=== PATIENT | female | born 1935 | race Caucasian/White ===

== ENCOUNTER → 2018-10-08 | Outpatient (CLI) | payer MEDICARE ==
--- NOTE | 2018-10-10 21:16 | MR ---
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 Eye pain per patient. TECHNIQUE: Multiplanar, multisequence images of the brain is performed without and with IV contrast, utilizing 7 mL intravenous Gadavist . Orbital protocol. FINDINGS: Right globe is felt within normal limits. Left globe shows abnormal increased T1 signal wit h T-shaped area of low T2 signal likely reflecting prosthesis correlate clinically otherwise other et iologies need to be considered. Rectus muscles are symmetric and felt within normal limits. There is symmetric nonspecific enhancemen t along the optic nerve sheaths which are not suspiciously enlarged. Suprasellar cistern is maintaine d. Optic chiasm is not effaced. Intraconal fat is preserved bilaterally. Zygomatic arches are intact. Visualized paranasal sinuses show mild mucosal thickening anterior ethmoid sinuses bilaterally. Orbi jessica floors and maciel are felt intact. Annual cervical junction appears within normal limits. No gross hydrocephalus. IMPRESSION: Suspect left globe prosthesis or surgical change correlate clinically otherwise fairly un remarkable study.
== END | disposition home or self-care (01) ==
LOC: RADMRIMAIN 11:14
PROVIDERS: ATTEND Ophthalmology
DX: H44.523 Atrophy of globe, bilateral (principal)
CPT/HCPCS: 70543; A9585

== ENCOUNTER 2019-02-27 09:36 | Emergency (ER) | payer MEDICARE ==
[2019-02-27 09:43] VITALS: RESP 16; TEMP 97.7
--- NOTE | 2019-02-27 09:47 | ED ---
Lower Extremity Injury HPI - General Chief Complaint: Extremity Injury, Lower Stated Complaint: hip pain Time Seen by Provider: 02/27/19 09:36 Source: patient, EMS, RN notes reviewed, old records reviewed Mode of arrival: EMS Limitations: physical limitation - History of Present Illness Initial Comments: This 84-year-old female who was here approximately 2 weeks ago after a fall sustaining pain to her left hip but apparently no fractures who presents back today with complaints of severe left-sided hip pain with inability to ambulate with her walker or cane. She does states she had a history of bad lower lumbar fracture about 2 years ago but none in this last incident. She denies any fevers chills nausea vomiting sweats loss of function to her upper or lower extremities is pain with weightbearing. She was brought in by EMS. Pain initially was 8/10 in severity after 50 g of fentanyl is now 4/10. - Related Data Home Medications Medication Instructions Recorded Confirmed Allopurinol [Zyloprim] 200 mg PO DAILY PRN 10/17/13 02/27/19 Hydrochlorothiazide [Hydrodiuril] 25 mg PO DAILY 10/17/13 02/27/19 Lansoprazole 30 mg PO DAILY 10/17/13 02/27/19 NIFEdipine [Adalat cc] 30 mg PO DAILY 10/17/13 02/27/19 Potassium Chloride [Klor-Con 20] 20 meq PO DAILY 02/27/19 02/27/19 glipiZIDE XL [Glucotrol Xl] 10 mg PO DAILY 02/27/19 02/27/19 Previous Rx's Medication Instructions Recorded Ketorolac [Toradol] 10 mg PO Q8HR #20 tab 02/27/19 Allergies Allergy/AdvReac Type Severity Reaction Status Date / Time Penicillins Allergy Rash/Hives Verified 02/27/19 11:05 Sulfa (Sulfonamide Allergy Rash/Hives Verified 02/27/19 11:05 Antibiotics) morphine AdvReac TURNED Verified 02/27/19 11:05 PURPLE/TROUBLE BREATHING Review of Systems ROS Statement: Those systems with pertinent positive or pertinent negative responses have been documented in the HPI. ROS Other: All systems not noted in ROS Statement are negative. 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, BLIND LEFT EYE, GOUT History of Any Multi-Drug Resistant Organisms: None Reported Past Surgical History: Bowel Resection, Cholecystectomy, Hysterectomy, Orthopedic Surgery Additional Past Surgical History / Comment(s): PALMER ROTATOR CUFF, CATARACT SX Past Anesthesia/Blood Transfusion Reactions: No Reported Reaction Past Psychological History: No Psychological Hx Reported Smoking Status: Never smoker Past Alcohol Use History: None Reported Past Drug Use History: None Reported General Exam - General Exam Comments Initial Comments: This is a well-developed well-nourished awake alert oriented 3 female Limitations: physical limitation General appearance: alert, anxious, in distress Head exam: Present: atraumatic, normocephalic, normal inspection Eye exam: Present: normal appearance, PERRL, EOMI. Absent: scleral icterus, con junctival injection, periorbital swelling ENT exam: Present: normal exam, mucous membranes moist Neck exam: Present: normal inspection. Absent: tenderness, meningismus, lymphadenopathy Respiratory exam: Present: normal lung sounds bilaterally. Absent: respiratory distress, wheezes, rales, rhonchi, stridor Cardiovascular Exam: Present: regular rate, normal rhythm, normal heart sounds. Absent: systolic murmur, diastolic murmur, rubs, gallop, clicks GI/Abdominal exam: Present: soft, normal bowel sounds. Absent: distended, tenderness, guarding, rebound, rigid, bruit, pulsatile mass Extremities exam: Present: normal inspection, tenderness (Tenderness over the left hip), normal capillary refill, other (Tennis over the left hip to palpation and over the left paraspinous musculature. This is a frail 5 S1 region. No definite step-off or crepitation no overt shortening or rotation of the left hip.). Absent: full ROM, pedal edema, joint swelling, calf tenderness Back exam: Present: normal inspection Neurological exam: Present: alert, oriented X3, CN II-XII intact Psychiatric exam: Present: normal affect, normal mood Skin exam: Present: warm, dry, intact, normal color. Absent: rash Course Vital Signs 02/27/19 02/27/19 09:38 11:03 Temperature 97.7 F Pulse Rate 62 76 Respiratory 16 16 Rate Blood Pressure 192/88 156/73 O2 Sat by Pulse 97 99 Oximetry Medical Decision Making - Medical Decision Making He was able amulet with her walker after the IV Toradol. She did get some improvement she'll be discharged on a short course of oral Toradol she is follow-up with her doctor return. We did discuss the findings - Radiology Data Radiology results: report reviewed, image reviewed (I did review the imaging and report no acute findings. Some spurring was noted) Disposition Clinical Impression: Hip pain, left, Contusion of left hip Disposition: HOME SELF-CARE Condition: Good Instructions (If sedation given, give patient instructions): Hip Pain (ED) Additional Instructions: Medications sent to your preferred pharmacy Prescriptions: Ketorolac [Toradol] 10 mg PO Q8HR #20 tab Is patient prescribed a controlled substance at d/c from ED?: No Referrals: None,Stated [REFERRING] - 1-2 days
--- NOTE | 2019-02-27 10:55 | XR ---
EXAMINATION TYPE: XR Hip LT and AP Pelvis DATE OF EXAM: 02/27/2019 COMPARISON: NONE HISTORY: Left hip pain status post fall TECHNIQUE: A single AP view of the pelvis is obtained. Two views of the left hip are obtained. FINDINGS: There is no acute fracture/dislocation evident in the pelvis. The hip and sacroiliac join ts appear symmetric and demonstrate mild degenerative change with acetabular roof sclerosis and small marginal osteophytes. The overlying soft tissue appears unremarkable. Two views of left hip show no acute fracture or dislocation. No focal lytic or sclerotic lesion seen in the proximal left femur. The overlying soft tissue is unremarkable. IMPRESSION: There is no acute fracture or dislocation in the pelvis or left hip.
[2019-02-27] MEDS ORDERED: KETOROLAC 30 MG/ML 1 ML VIAL IVP STA (10:56)
[2019-02-27 11:04] VITALS: BP 156/73; PULSE 76
--- NOTE | 2019-02-27 11:22 | CT ---
EXAMINATION TYPE: CT pelvis wo con DATE OF EXAM: 02/27/2019 COMPARISON: Radiograph same date HISTORY: 84-year-old female left hip pain post fall TECHNIQUE: Contiguous axial scanning of the pelvis without IV contrast. Coronal and sagittal reconstr uctions performed. CT DLP: 374.3 mGycm Automated exposure control for dose reduction was used. FINDINGS: Left L5 hemisacralization with the transverse processes articulating with the sacroiliac. Sacrum appe ars intact as do the SI joints. Mild degenerative change of both hips. Osteopenia. Some chronically fragmented spurs at the left grea ter trochanter. Osteopenia. No acute fracture seen. Moderate to advanced degenerative disc disease lo wer lumbar spine and hypertrophic facet arthropathy. IMPRESSION: NO ACUTE FRACTURE IDENTIFIED. IF THE PATIENT IS NONWEIGHTBEARING, FOLLOW-UP SUCH WITH MRI MAY BE I NDICATED.
== END 2019-02-27 12:40 | disposition home or self-care (01) ==
LOC: EC 09:36
DX: S70.02XA Contusion of left hip, initial encounter (principal); E11.9 Type 2 diabetes mellitus without complications; I10 Essential (primary) hypertension; M19.90 Unspecified osteoarthritis, unspecified site; M10.9 Gout, unspecified; H54.7 Unspecified visual loss; Z86.73 Personal history of transient ischemic attack (TIA), and cerebral infarction without residual deficits; Z90.49 Acquired absence of other specified parts of digestive tract; Z90.710 Acquired absence of both cervix and uterus; Z98.890 Other specified postprocedural states; Z79.84 Long term (current) use of oral hypoglycemic drugs; Z79.899 Other long term (current) drug therapy; Z88.0 Allergy status to penicillin; Z88.2 Allergy status to sulfonamides; Z88.5 Allergy status to narcotic agent; Z87.81 Personal history of (healed) traumatic fracture; X58.XXXA Exposure to other specified factors, initial encounter
CPT/HCPCS: 73502; 72192; 99285; 96374; J1885

== ENCOUNTER → 2019-11-22 | Outpatient (CLI) | payer MEDICARE ==
--- NOTE | 2019-11-22 14:43 | XR ---
EXAMINATION TYPE: XR chest 2V DATE OF EXAM: 11/22/2019 COMPARISON: 07/24/2019 HISTORY: Shortness of breath TECHNIQUE: Frontal and lateral views of the chest are obtained. FINDINGS: Scattered senescent parenchymal changes noted. Hyperinflation compatible with COPD. No evidence for infiltrate. No evidence for atelectasis. Heart size is stable. Mediastinal structures are stable and grossly unremarkable. No evidence for hilar prominence. Degenerative changes dorsal spine. IMPRESSION: 1. No evidence for acute pulmonary disease.
== END | disposition home or self-care (01) ==
LOC: RADXRMAIN 13:53
PROVIDERS: ATTEND Family Medicine
DX: R05 Cough (principal)
CPT/HCPCS: 71046

== ENCOUNTER 2020-05-05 13:23 | Inpatient (IN) | payer MEDICARE ==
--- NOTE | 2020-05-05 13:46 | ED ---
General Adult HPI - General Chief complaint: Weakness Stated complaint: Weakness Time Seen by Provider: 05/05/20 13:25 Source: patient, EMS, RN notes reviewed, old records reviewed Mode of arrival: EMS Limitations: no limitations - History of Present Illness Initial comments: This is an 85-year-old female presents emergency department stating that she j diana doesn't feel well. Patient states she felt last week and landed on her butt and her lower back. Patient states that since she's been complaining of lower back pain as well as some right hip pain. Patient states in general she just feels weaker than normal. Patient denies any fever chills or cough per patient denies any chest pain or palpitations. Patient is mildly short of breath. patient denies any headache patient denies numbness weakness. Patient denies abdominal pain patient denies nausea vomiting or diarrhea. - Related Data Home Medications Medication Instructions Recorded Confirmed Lansoprazole 30 mg PO DAILY 10/17/13 02/27/19 NIFEdipine [Adalat cc] 30 mg PO DAILY 10/17/13 02/27/19 allopurinoL [Zyloprim] 200 mg PO DAILY PRN 10/17/13 02/27/19 hydroCHLOROthiazide [Hydrodiuril] 25 mg PO DAILY 10/17/13 02/27/19 Potassium Chloride [Klor-Con 20] 20 meq PO DAILY 02/27/19 02/27/19 glipiZIDE XL [Glucotrol Xl] 10 mg PO DAILY 02/27/19 02/27/19 Previous Rx's Medication Instructions Recorded Ketorolac [Toradol] 10 mg PO Q8HR #20 tab 02/27/19 Allergies Allergy/AdvReac Type Severity Reaction Status Date / Time Penicillins Allergy Rash/Hives Verified 02/27/19 11:05 Sulfa (Sulfonamide Allergy Rash/Hives Verified 02/27/19 11:05 Antibiotics) morphine AdvReac TURNED Verified 02/27/19 11:05 PURPLE/TROUBLE BREATHING Review of Systems ROS Statement: Those systems with pertinent positive or pertinent negative responses have been documented in the HPI. ROS Other: All systems not noted in ROS Statement are negative. 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 Patient is nontoxic and well- hydrated and is in mild distress. ENT: Neck is soft and supple. No significant lymphadenopathy is noted. Oropharynx is clear. Moist mucous membranes. Neck has full range of motion without eliciting any pain. EYES: The sclera were anicteric and conjunctiva were pink and moist. Extraocular movements were intact and pupils were equal round and reactive to light. Eyelids were unremarkable. PULMONARY: Unlabored respirations. Good breath sounds bilaterally. No audible rales rhonchi or wheezing was noted. CARDIOVASCULAR: There is a regular rate and rhythm without any murmurs gallops or rubs. ABDOMEN: Soft and nontender with normal bowel sounds. No palpable organomegaly was noted. There is no palpable pulsatile mass. SKIN: Skin is clear with no lesions or rashes and otherwise unremarkable. NEUROLOGIC: Patient is alert and oriented x3. Cranial nerves II through XII are grossly intact. Motor and sensory are also intact. Normal speech, volume and content. Symmetrical smile. MUSCULOSKELETAL: She has some right lateral hip tenderness on palpation. Patient also has some lumbar spine tenderness LYMPHATICS: No significant lymphadenopathy is noted PSYCHIATRIC: Normal psychiatric evaluation. Limitations: no limitations Course Vital Signs 05/05/20 05/05/20 05/05/20 13:25 13:30 14:29 Temperature 98.5 F Pulse Rate 78 78 Respiratory 18 18 18 Rate Blood Pressure 180/78 147/99 O2 Sat by Pulse 95 96 Oximetry Medical Decision Making - Medical Decision Making EKG shows sinus rhythm at 75 bpm WI interval is 224 QRS is 118 QT interval 414 QTC is 462. EKG shows no ST segment elevation or depression Chest x-ray shows a little bit of infiltrate in the perihilar region. Pelvis x-ray shows no acute abnormality. Lumbar sacral spine shows no acute abnormality. I spoke with some physicians and that he agreed to admit the patient because the positive: The diagnosis and the infiltrate. Patient does states she is slightly short of breath at this point. - Lab Data Result diagrams: 05/05/20 13:53 05/05/20 13:53 Lab Results 05/05/20 05/05/20 05/05/20 Range/Units 13:53 13:53 13:53 WBC 6.2 (3.8-10.6) k/uL RBC 3.94 (3.80-5.40) m/uL Hgb 12.1 (11.4-16.0) gm/dL Hct 34.8 (34.0-46.0) % MCV 88.4 (80.0-100.0) fL MCH 30.8 (25.0-35.0) pg MCHC 34.9 (31.0-37.0) g/dL RDW 13.5 (11.5-15.5) % Plt Count 270 (150-450) k/uL MPV 7.0 Neutrophils % 76 % Lymphocytes % 14 % Monocytes % 6 % Eosinophils % 1 % Basophils % 2 % Neutrophils # 4.7 (1.3-7.7) k/uL Lymphocytes # 0.9 L (1.0-4.8) k/uL Monocytes # 0.4 (0-1.0) k/uL Eosinophils # 0.1 (0-0.7) k/uL Basophils # 0.1 (0-0.2) k/uL PT 9.9 (9.0-12.0) sec INR 0.9 (<1.2) APTT 25.6 (22.0-30.0) sec Sodium 135 L (137-145) mmol/L Potassium 3.8 (3.5-5.1) mmol/L Chloride 102 (98-107) mmol/L Carbon Dioxide 27 (22-30) mmol/L Anion Gap 6 mmol/L BUN 12 (7-17) mg/dL Creatinine 0.87 (0.52-1.04) mg/dL Est GFR (CKD-EPI)AfAm 69 (>60 ml/min/1.73 sqM) Est GFR (CKD-EPI)NonAf 60 (>60 ml/min/1.73 sqM) Glucose 86 (74-99) mg/dL Plasma Lactic Acid Loco (0.7-2.0) mmol/L Calcium 8.2 L (8.4-10.2) mg/dL Total Bilirubin 0.9 (0.2-1.3) mg/dL AST 39 H (14-36) U/L ALT 9 (4-34) U/L Alkaline Phosphatase 79 (38-126) U/L Troponin I (0.000-0.034) ng/mL Total Protein 6.0 L (6.3-8.2) g/dL Albumin 3.6 (3.5-5.0) g/dL Urine Color Urine Appearance (Clear) Urine pH (5.0-8.0) Ur Specific [place] (1.001-1.035) Urine Protein (Negative) Urine Glucose (UA) (Negative) Urine Ketones (Negative) Urine Blood (Negative) Urine Nitrite (Negative) Urine Bilirubin (Negative) Urine Urobilinogen (<2.0) mg/dL Ur Leukocyte Esterase (Negative) Urine RBC (0-5) /hpf Urine WBC (0-5) /hpf Ur Squamous Epith Cells (0-4) /hpf Urine Bacteria (None) /hpf Hyaline Casts (0-2) /lpf Urine Mucus (None) /hpf Coronavirus (PCR) (Not Detectd) 05/05/20 05/05/20 05/05/20 Range/Units 13:53 13:53 14:32 WBC (3.8-10.6) k/uL RBC (3.80-5.40) m/uL Hgb (11.4-16.0) gm/dL Hct (34.0-46.0) % MCV (80.0-100.0) fL MCH (25.0-35.0) pg MCHC (31.0-37.0) g/dL RDW (11.5-15.5) % Plt Count (150-450) k/uL MPV Neutrophils % % Lymphocytes % % Monocytes % % Eosinophils % % Basophils % % Neutrophils # (1.3-7.7) k/uL Lymphocytes # (1.0-4.8) k/uL Monocytes # (0-1.0) k/uL Eosinophils # (0-0.7) k/uL Basophils # (0-0.2) k/uL PT (9.0-12.0) sec INR (<1.2) APTT (22.0-30.0) sec Sodium (137-145) mmol/L Potassium (3.5-5.1) mmol/L Chloride (98-107) mmol/L Carbon Dioxide (22-30) mmol/L Anion Gap mmol/L BUN (7-17) mg/dL Creatinine (0.52-1.04) mg/dL Est GFR (CKD-EPI)AfAm (>60 ml/min/1.73 sqM) Est GFR (CKD-EPI)NonAf (>60 ml/min/1.73 sqM) Glucose (74-99) mg/dL Plasma Lactic Acid Loco 1.0 (0.7-2.0) mmol/L Calcium (8.4-10.2) mg/dL Total Bilirubin (0.2-1.3) mg/dL AST (14-36) U/L ALT (4-34) U/L Alkaline Phosphatase (38-126) U/L Troponin I 0.015 (0.000-0.034) ng/mL Total Protein (6.3-8.2) g/dL Albumin (3.5-5.0) g/dL Urine Color Urine Appearance (Clear) Urine pH (5.0-8.0) Ur Specific [place] (1.001-1.035) Urine Protein (Negative) Urine Glucose (UA) (Negative) Urine Ketones (Negative) Urine Blood (Negative) Urine Nitrite (Negative) Urine Bilirubin (Negative) Urine Urobilinogen (<2.0) mg/dL Ur Leukocyte Esterase (Negative) Urine RBC (0-5) /hpf Urine WBC (0-5) /hpf Ur Squamous Epith Cells (0-4) /hpf Urine Bacteria (None) /hpf Hyaline Casts (0-2) /lpf Urine Mucus (None) /hpf Coronavirus (PCR) Detected A (Not Detectd) 05/05/20 Range/Units 14:40 WBC (3.8-10.6) k/uL RBC (3.80-5.40) m/uL Hgb (11.4-16.0) gm/dL Hct (34.0-46.0) % MCV (80.0-100.0) fL MCH (25.0-35.0) pg MCHC (31.0-37.0) g/dL RDW (11.5-15.5) % Plt Count (150-450) k/uL MPV Neutrophils % % Lymphocytes % % Monocytes % % Eosinophils % % Basophils % % Neutrophils # (1.3-7.7) k/uL Lymphocytes # (1.0-4.8) k/uL Monocytes # (0-1.0) k/uL Eosinophils # (0-0.7) k/uL Basophils # (0-0.2) k/uL PT (9.0-12.0) sec INR (<1.2) APTT (22.0-30.0) sec Sodium (137-145) mmol/L Potassium (3.5-5.1) mmol/L Chloride (98-107) mmol/L Carbon Dioxide (22-30) mmol/L Anion Gap mmol/L BUN (7-17) mg/dL Creatinine (0.52-1.04) mg/dL Est GFR (CKD-EPI)AfAm (>60 ml/min/1.73 sqM) Est GFR (CKD-EPI)NonAf (>60 ml/min/1.73 sqM) Glucose (74-99) mg/dL Plasma Lactic Acid Loco (0.7-2.0) mmol/L Calcium (8.4-10.2) mg/dL Total Bilirubin (0.2-1.3) mg/dL AST (14-36) U/L ALT (4-34) U/L Alkaline Phosphatase (38-126) U/L Troponin I (0.000-0.034) ng/mL Total Protein (6.3-8.2) g/dL Albumin (3.5-5.0) g/dL Urine Color Yellow Urine Appearance Cloudy H (Clear) Urine pH 5.5 (5.0-8.0) Ur Specific [place] 1.018 (1.001-1.035) Urine Protein Trace H (Negative) Urine Glucose (UA) Negative (Negative) Urine Ketones 1+ H (Negative) Urine Blood Negative (Negative) Urine Nitrite Negative (Negative) Urine Bilirubin Negative (Negative) Urine Urobilinogen <2.0 (<2.0) mg/dL Ur Leukocyte Esterase Small H (Negative) Urine RBC 1 (0-5) /hpf Urine WBC 10 H (0-5) /hpf Ur Squamous Epith Cells 8 H (0-4) /hpf Urine Bacteria Rare H (None) /hpf Hyaline Casts 3 H (0-2) /lpf Urine Mucus Few H (None) /hpf Coronavirus (PCR) (Not Detectd) Critical Care Time Critical Care Time: Yes Total Critical Care Time: 35 Disposition Clinical Impression: Pneumonia due to COVID-19 virus Disposition: ADMITTED IP TO THIS HOSP Referrals: Imra Anna MD [Primary Care Provider] - 1-2 days Time of Disposition: 14:56
[2020-05-05] MEDS ORDERED: KETOROLAC 15 MG/ML 1 ML VIAL IVP STA (13:49)
[2020-05-05 14:01] LABS: Basophils # (A) 0.1 k/uL (0-0.2); Basophils % (A) 2 %; Eosinophils # (A) 0.1 k/uL (0-0.7); Eosinophils % (A) 1 %; HCT 34.8 % (34.0-46.0); HGB 12.1 gm/dL (11.4-16.0); Lymphocytes # (A) 0.9 k/uL (1.0-4.8); Lymphocytes % (A) 14 %; MCH 30.8 pg (25.0-35.0); MCHC 34.9 g/dL (31.0-37.0); MCV 88.4 fL (80.0-100.0); Monocytes # (A) 0.4 k/uL (0-1.0); Monocytes % (A) 6 %; Neutrophils # (A) 4.7 k/uL (1.3-7.7); Neutrophils % (A) 76 %; Platelet Count 270 k/uL (150-450); RBC 3.94 m/uL (3.80-5.40); RDW 13.5 % (11.5-15.5); WBC 6.2 k/uL (3.8-10.6)
[2020-05-05 14:09] LABS: INR 0.9 (<1.2); Partial Thromboplastin Time 25.6 sec (22.0-30.0); Prothrombin Time 9.9 sec (9.0-12.0)
[2020-05-05 14:10] LABS: Albumin 3.6 g/dL (3.5-5.0); Calcium 8.2 mg/dL (8.4-10.2); Potassium 3.8 mmol/L (3.5-5.1); Total Bilirubin 0.9 mg/dL (0.2-1.3)
--- NOTE | 2020-05-05 14:33 | XR ---
EXAMINATION TYPE: XR pelvis AP view DATE OF EXAM: 05/05/2020 COMPARISON: NONE HISTORY: Weakness. Fall. Pain. TECHNIQUE: Single view FINDINGS: The pelvic ring appears intact. The proximal femurs and hip joints are intact. Sacroiliac j oints are intact. There is acetabular spurring. IMPRESSION: No fracture seen.
--- NOTE | 2020-05-05 14:34 | XR ---
EXAMINATION TYPE: XR lumbosacral spine min 4V DATE OF EXAM: 05/05/2020 COMPARISON: NONE HISTORY: Weakness TECHNIQUE: 5 views FINDINGS: There is mild lumbar dextroscoliosis. There is degenerative disc space narrowing in the lum bar spine with vacuum disc and spur formation. There is old 15% wedging of L1 vertebral body. Abdomin al aorta is atheromatous. Posterior elements are intact. Sacroiliac joints are intact. IMPRESSION: Spondylotic changes. Old mild L1 compression fracture. No acute bony abnormality.
--- NOTE | 2020-05-05 14:37 | XR ---
EXAMINATION TYPE: XR chest 2V DATE OF EXAM: 05/05/2020 COMPARISON: 11/22/2019 HISTORY: Weakness TECHNIQUE: 2 views FINDINGS: There is some coarsening of interstitial pulmonary markings. There is no pleural effusion. There are no hilar masses. Heart size is fairly normal. IMPRESSION: Slight increased lung markings consistent with mild pulmonary fibrosis. No obvious heart failure. Lung markings increased compared to old exam.
[2020-05-05 14:48] LABS: Appearance,Urine Cloudy (Clear); Bacteria,Urine Rare /hpf; Bilirubin,Urine Negative (Negative); Blood,Urine Negative (Negative); Color,Urine Yellow; Glucose,Urine (UA) Negative (Negative); Hyaline Casts,Urine 3 /lpf (0-2); Ketones,Urine 1+ (Negative); Leukocyte Esterase,Urine Small (Negative); Mucus,Urine Few /hpf; Nitrite,Urine Negative (Negative); PH, Urine 5.5 (5.0-8.0); Protein,Urine Trace (Negative); RBC,Urine 1 /hpf (0-5); Specific Gravity,Urine 1.018 (1.001-1.035); Squamous Epithelial Cell,Urine 8 /hpf (0-4); Urobilinogen,Urine <2.0 mg/dL (<2.0); WBC,Urine 10 /hpf (0-5)
[2020-05-05] MEDS ORDERED: SODIUM CHLORIDE 0.9% 1,000 ML IV ONE (14:56)
[2020-05-05] MEDS ORDERED: ACETAMINOPHEN TAB 500 MG TAB PO STA (14:57)
[2020-05-05] MEDS ORDERED: dexAMETHasone 2 MG TAB PO STA (14:58)
--- NOTE | 2020-05-05 16:52 | P.HPIM ---
History of Present Illness H&P Date: 05/05/20 Chief Complaint: weakness 85-year-old female presents emergency department due to profound weakness and not feeling well. Currently has no energy. Patient states she passed out, lost consciousness and fell last week and landed on her butt and her lower back. Patient states that since then she's been having lower back pain as well as some right hip pain. She has been having chills but no fevers. No chest pain, shortness of breath or palpitations. Patient denies any headache, visual changes, slurred speech, focal numbness weakness. Patient denies urinary s ymptoms, abdominal pain, nausea vomiting or diarrhea. She does not recall any sick contacts. Patient denied having any lung problems in the past but has ''irregular heartbeat'' and she follows with Dr. Ramirez in the office. She does not know what type of irregular heartbeat she has. Evaluation in the emergency department revealed normal vital signs, no hypoxia or fevers. Blood pressure and heart rate okay. EKG showed normal sinus rhythm without acute changes. Labs were all okay except for mild lymphopenia and slight hyponatremia at 135, AST 35, urinalysis showed slight pyuria. COVID 19 tested positive. Review of Systems Complete review of system performed, pertinent positives per HPI, otherwise negative 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, BLIND LEFT EYE, G OUT History of Any Multi-Drug Resistant Organisms: None Reported Past Surgical History: Bowel Resection, Cholecystectomy, Hysterectomy, Orthopedic Surgery Additional Past Surgical History / Comment(s): PALMER ROTATOR CUFF, CATARACT SX Past Anesthesia/Blood Transfusion Reactions: No Reported Reaction Past Psychological History: No Psychological Hx Reported Smoking Status: Former smoker Past Alcohol Use History: None Reported Past Drug Use History: None Reported Medications and Allergies Home Medications Medication Instructions Recorded Confirmed Type NIFEdipine [Adalat cc] 30 mg PO DAILY 10/17/13 05/05/20 History allopurinoL [Zyloprim] 100 mg PO HS 10/17/13 05/05/20 History glipiZIDE XL [Glucotrol Xl] 10 mg PO DAILY 02/27/19 05/05/20 History Losartan [Cozaar] 50 mg PO DAILY 05/05/20 05/05/20 History Omeprazole 20 mg PO DAILY 05/05/20 05/05/20 History Allergies Allergy/AdvReac Type Severity Reaction Status Date / Time Penicillins Allergy Rash/Hives Verified 02/27/19 11:05 Sulfa (Sulfonamide Allergy Rash/Hives Verified 02/27/19 11:05 Antibiotics) morphine AdvReac TURNED Verified 02/27/19 11:05 PURPLE/TROUBLE BREATHING Physical Exam Vitals: Vital Signs Temp Pulse Resp BP Pulse Ox 05/05/20 15:00 72 18 146/72 96 05/05/20 14:29 78 18 147/99 96 05/05/20 13:30 18 05/05/20 13:25 98.5 F 78 18 180/78 95 Intake and Output 05/05/20 05/05/20 05/05/20 06:59 14:59 22:59 Other: Weight 120.202 kg Constitutional: No acute distress, conversant, pleasant Eyes:Anicteric sclerae, moist conjunctiva, no lid-lag, PERRLA, ENMT: Oropharynx clear, no erythema, exudates Neck: Supple, FROM, no masses, or JVD, No carotid bruits, No thyromegaly Lungs: Clear to auscultation, Clear to percussion, Normal respiratory effort, no accessory muscle use Cardiovascular: Heart regular in rate and rhythm, No murmurs, gallops, or rubs, No peripheral edema Abdominal: Soft, Nontender, no guarding, rebound or rigidity, Normoactive bowel sounds, No hepatomegaly, No splenomegaly, No palpable mass Skin: Normal temperature, tone, texture, turgor, no induration, No subcutaneous nodules, No rash, lesions, No ulcers Extremities: No digital cyanosis, No clubbing, Pedal pulses intact and symmetrical, Radial pulses intact and symmetrical, No calf tenderness Psychiatric: Alert and oriented to person, place and time, appropriate affect, intact judgement Neuro: Muscles Strength 5/5 in all 4 extremities, Sensation to light touch grossly present throughout, Cranial nerves II-XII grossly intact, no focal sensory deficits Results CBC & Chem 7: 05/05/20 13:53 05/05/20 13:53 Labs: Abnormal Lab Results - Last 24 Hours (Table) 05/05/20 05/05/20 05/05/20 Range/Units 13:53 13:53 14:32 Lymphocytes # 0.9 L (1.0-4.8) k/uL Sodium 135 L (137-145) mmol/L Calcium 8.2 L (8.4-10.2) mg/dL AST 39 H (14-36) U/L Total Protein 6.0 L (6.3-8.2) g/dL Urine Appearance (Clear) Urine Protein (Negative) Urine Ketones (Negative) Ur Leukocyte Esterase (Negative) Urine WBC (0-5) /hpf Ur Squamous Epith Cells (0-4) /hpf Urine Bacteria (None) /hpf Hyaline Casts (0-2) /lpf Urine Mucus (None) /hpf Coronavirus (PCR) Detected A (Not Detectd) 05/05/20 Range/Units 14:40 Lymphocytes # (1.0-4.8) k/uL Sodium (137-145) mmol/L Calcium (8.4-10.2) mg/dL AST (14-36) U/L Total Protein (6.3-8.2) g/dL Urine Appearance Cloudy H (Clear) Urine Protein Trace H (Negative) Urine Ketones 1+ H (Negative) Ur Leukocyte Esterase Small H (Negative) Urine WBC 10 H (0-5) /hpf Ur Squamous Epith Cells 8 H (0-4) /hpf Urine Bacteria Rare H (None) /hpf Hyaline Casts 3 H (0-2) /lpf Urine Mucus Few H (None) /hpf Coronavirus (PCR) (Not Detectd) Assessment and Plan Plan: Syncope Monitor on telemetry Check troponin Echo Lower back pain and right hip pain Lumbar spine x-ray checked in the emergency department, negative Check right hip x-ray Tylenol when necessary for pain Covid 19 IV fluids No indication for treatment with remdisivir or Decadron as patient does not have pneumonia or hypoxia. History of diabetes type 2 Hold oral hypoglycemics Sliding scale insulin with blood sugar checks every before meals and at bedtime GERD Hypertension, essential Gout All stable Resume meds Patient will be admitted to observation, expected length of stay less than two midnights.
[2020-05-05] MEDS ORDERED: NALOXONE 0.4 MG/ML 1 ML VIAL IV PRN (16:53)
[2020-05-05] MEDS: INSULIN ASPART (NovoLOG) 100 UNIT/ML VIAL SQ SCH ×2 (21:18→21:33)
[2020-05-05 21:31] LABS: Glucose,Whole Blood 293 mg/dL (75-99)
[2020-05-05] MEDS: ENOXAPARIN 40 MG/0.4 ML SYRINGE SQ SCH (21:33)
[2020-05-05] MEDS: ACETAMINOPHEN TAB 325 MG TAB PO PRN (21:33)
[2020-05-05] MEDS: allopurinoL 100 MG TAB PO SCH (21:33)
[2020-05-05] MEDS ORDERED: KETOROLAC 15 MG/ML 1 ML VIAL IM STA (21:40)
[2020-05-06 07:58] LABS: Basophils % (A) 0 %; Eosinophils % (A) 0 %; HGB 11.4 gm/dL (11.4-16.0); Lymphocytes # (A) 1.2 k/uL (1.0-4.8); Lymphocytes % (A) 29 %; MCH 29.2 pg (25.0-35.0); MCHC 32.6 g/dL (31.0-37.0); MCV 89.5 fL (80.0-100.0); Monocytes # (A) 0.4 k/uL (0-1.0); Monocytes % (A) 9 %; Neutrophils # (A) 2.4 k/uL (1.3-7.7); Neutrophils % (A) 60 %; Platelet Count 274 k/uL (150-450); RBC 3.91 m/uL (3.80-5.40); RDW 13.6 % (11.5-15.5)
[2020-05-06 08:27] LABS: Glucose,Whole Blood 200 mg/dL (75-99)
[2020-05-06] MEDS ORDERED: dexAMETHasone 2 MG TAB PO SCH (09:00)
[2020-05-06] MEDS: ENOXAPARIN 40 MG/0.4 ML SYRINGE SQ SCH (09:04)
[2020-05-06] MEDS: INSULIN ASPART (NovoLOG) 100 UNIT/ML VIAL SQ SCH ×4 (09:05→22:10)
[2020-05-06] MEDS: NIFEdipine XL 30 MG TAB.ER.24 PO SCH (09:06)
[2020-05-06] MEDS: PANTOPRAZOLE 40 MG TABLET PO SCH (09:06)
[2020-05-06] MEDS: LOSARTAN 50 MG TAB PO SCH (09:06)
--- NOTE | 2020-05-06 11:14 | P.PN ---
Subjective Progress Note Date: 05/06/20 No new complaints today, ongoing weakness, lethargy. Does report dyspnea, but not hypoxic. Objective - Vital Signs Vital signs: Vital Signs Temp 98.5 F 05/05/20 13:25 Pulse 64 05/06/20 06:15 Resp 19 05/06/20 06:15 BP 156/61 05/06/20 06:15 Pulse Ox 93 L 05/06/20 06:15 Intake & Output 05/05/20 05/06/20 05/06/20 18:59 06:59 18:59 Weight 120.202 kg - Exam Gen: awake, alert HEENT: normocephalic, atraumatic, good hearing acuity, moist mucous membranes Resp:good air exchange, no accessory muscle use CVS: good distal perfusion x 4, RRR, no murmurs, clicks, gallops GI: soft, NTTP, ND : no SPT, no CVAT, fry catheter not present MSK: no pitting edema, no clubbing Neuro: non-focal, no sensory deficits, appropriate tone Psych: cooperative, euthymic mood - Labs CBC & Chem 7: 05/06/20 07:30 05/05/20 13:53 Labs: Abnormal Lab Results - Last 24 Hours (Table) 05/05/20 05/05/20 05/05/20 Range/Units 13:53 13:53 14:32 Lymphocytes # 0.9 L (1.0-4.8) k/uL Sodium 135 L (137-145) mmol/L POC Glucose (mg/dL) (75-99) mg/dL Calcium 8.2 L (8.4-10.2) mg/dL AST 39 H (14-36) U/L Total Protein 6.0 L (6.3-8.2) g/dL Urine Appearance (Clear) Urine Protein (Negative) Urine Ketones (Negative) Ur Leukocyte Esterase (Negative) Urine WBC (0-5) /hpf Ur Squamous Epith Cells (0-4) /hpf Urine Bacteria (None) /hpf Hyaline Casts (0-2) /lpf Urine Mucus (None) /hpf Coronavirus (PCR) Detected A (Not Detectd) 05/05/20 05/05/20 05/06/20 Range/Units 14:40 21:30 08:25 Lymphocytes # (1.0-4.8) k/uL Sodium (137-145) mmol/L POC Glucose (mg/dL) 293 H 200 H (75-99) mg/dL Calcium (8.4-10.2) mg/dL AST (14-36) U/L Total Protein (6.3-8.2) g/dL Urine Appearance Cloudy H (Clear) Urine Protein Trace H (Negative) Urine Ketones 1+ H (Negative) Ur Leukocyte Esterase Small H (Negative) Urine WBC 10 H (0-5) /hpf Ur Squamous Epith Cells 8 H (0-4) /hpf Urine Bacteria Rare H (None) /hpf Hyaline Casts 3 H (0-2) /lpf Urine Mucus Few H (None) /hpf Coronavirus (PCR) (Not Detectd) Assessment and Plan Assessment: 1. Syncope 2. Lower Back pain 3. COVID-19 4. DM, type II 5. GERD 6. HTN 7. Gout 85 year old woman with history of DM/HTN, GERD, Gout presented after syncopal episode with lower back pain and was found to have COVID-19 without hypoxia. Patient expresses feeling very weak since her symptoms began on 05/02, and feels she cannot care for herself at home. PT/OT evaluation pending Syncope Monitor on telemetry Check troponin Echo PT/OT Lower back pain and right hip pain Lumbar spine x-ray checked in the emergency department, negative Check right hip x-ray Tylenol when necessary for pain Covid 19 IV fluids No indication for treatment with remdisivir or Decadron as patient does not have pneumonia or hypoxia. History of diabetes type 2 Hold oral hypoglycemics Sliding scale insulin with blood sugar checks every before meals and at bedtime GERD Hypertension, essential Gout All stable Resume meds Patient will be admitted to observation, expected length of stay less than two midnights.
[2020-05-06 11:30] LABS: African American GFR (CKD) 58.7 (60.0-200.0); Albumin 3.7 g/dL (3.80-4.90); Albumin/Globulin Ratio 2.31 (1.60-3.17); Anion Gap 7.8 mmol/L (4.00-12.00); Calcium 8.6 mg/dL (8.7-10.3); Carbon Dioxide 27.2 mmol/L (21.6-31.8); Globulin 1.6 g/dL (1.6-3.3); Magnesium 2.2 mg/dL (1.5-2.4); Non-African American GFR(CKD) 50.6 (60.0-200.0); Phosphorus 3.3 mg/dL (2.4-5.1); Potassium 4.3 mmol/L (3.5-5.5); Total Bilirubin 0.5 mg/dL (0.2-1.2); Total Protein 5.3 g/dL (6.2-8.2)
[2020-05-06 12:04] LABS: Glucose,Whole Blood 136 mg/dL (75-99)
[2020-05-06] MEDS: ACETAMINOPHEN TAB 325 MG TAB PO PRN ×2 (12:46→22:10)
--- NOTE | 2020-05-06 12:57 | ECHOF ---
Referral Reason:syncope MEASUREMENTS -------- HEIGHT: 160.0 cm WEIGHT: 74.8 kg BP: 156/61 RVIDd: 3.1 cm (< 3.3) IVSd: 1.1 cm (0.6 - 1.1) LVIDd: 4.1 cm (3.9 - 5.3) LVPWd: 1.1 cm (0.6 - 1.1) IVSs: 1.8 cm LVIDs: 2.4 cm LVPWs: 1.8 cm LA Diam: 3.6 cm (2.7 - 3.8) LAESV Index (A-L): 27.69 ml/m Ao Diam: 3.6 cm (2.0 - 3.7) MV EXCURSION: 15.857 mm (> 18.000) MV EF SLOPE: 22 mm/s (70 - 150) EPSS: 0.5 cm MV E Adrián: 1.03 m/s MV DecT: 271 ms MV A Adrián: 1.37 m/s MV E/A Ratio: 0.75 AV maxP.22 mmHg AV meanP.55 mmHg AR PHT: 625 ms RAP: 5.00 mmHg RVSP: 22.79 mmHg FINDINGS -------- Resting bradycardia (HR<60bpm). This was a technically good study. The left ventricular size is normal. There is borderline concentric left ventricular hypertrophy. Overall left ventricular systolic function is normal with, an EF between 60 - 65 %. The right ventricle is normal in size. Normal LA size by volume 22+/-6 ml/m2. The right atrium is normal in size. Interatrial and interventricular septum intact. There is mild aortic valve sclerosis. There is severe aortic regurgitation. There is mild aortic stenosis present. Peak/mean gradient across the Aortic Valve is 20.22mmHg / 10.55mmHg. The mitral valve leaflets are mildly thickened. Moderate mitral regurgitation is present. Mild tricuspid regurgitation present. Right ventricular systolic pressure is normal at < 35 mmHg. Trace/mild (physiologic) pulmonic regurgitation. The aortic root size is normal. Normal inferior vena cava with normal inspiratory collapse consistent with estimated right atrial pre ssure of 5 mmHg. There is no pericardial effusion. CONCLUSIONS -------- 1. The left ventricular size is normal. 2. There is borderline concentric left ventricular hypertrophy. 3. Overall left ventricular systolic function is normal with, an EF between 60 - 65 %. 4. There is mild aortic valve sclerosis. 5. There is severe aortic regurgitation. 6. There is mild aortic stenosis present. 7. Peak/mean gradient across the Aortic Valve is 20.22mmHg / 10.55mmHg. 8. The mitral valve leaflets are mildly thickened. 9. Moderate mitral regurgitation is present. 10. Mild tricuspid regurgitation present. 11. Trace/mild (physiologic) pulmonic regurgitation. 12. There is no pericardial effusion. BLENDING TANK HELPER: Mily Titus RDCS
[2020-05-06 21:20] LABS: Glucose,Whole Blood 264 mg/dL (75-99)
[2020-05-06] MEDS: allopurinoL 100 MG TAB PO SCH (22:10)
[2020-05-07] MEDS: ACETAMINOPHEN TAB 325 MG TAB PO PRN (04:18)
[2020-05-07 07:08] LABS: Glucose,Whole Blood 99 mg/dL (75-99)
[2020-05-07] MEDS: LOSARTAN 50 MG TAB PO SCH (09:13)
[2020-05-07] MEDS: PANTOPRAZOLE 40 MG TABLET PO SCH (09:13)
[2020-05-07] MEDS: NIFEdipine XL 30 MG TAB.ER.24 PO SCH (09:13)
[2020-05-07] MEDS: INSULIN ASPART (NovoLOG) 100 UNIT/ML VIAL SQ SCH ×4 (09:14→21:27)
[2020-05-07] MEDS: ENOXAPARIN 40 MG/0.4 ML SYRINGE SQ SCH (09:14)
--- NOTE | 2020-05-07 10:10 | P.PN ---
Subjective Progress Note Date: 05/07/20 Pt still appears weak, tired, new oxygen requirement today, ID consult pending. Echo done yesterday demonstrated severe AR, cardiology consult pending. Objective - Vital Signs Vital signs: Vital Signs Temp 99.2 F 05/07/20 05:00 Pulse 66 05/07/20 05:00 Resp 20 05/07/20 05:00 BP 161/81 05/07/20 05:00 Pulse Ox 92 L 05/07/20 05:00 Intake & Output 05/06/20 05/07/20 05/07/20 18:59 06:59 18:59 Intake Total 500 Balance 500 Weight 120.202 kg Intake: Oral 500 Other: Voiding Method Bedside Commode # Voids 3 # Bowel Movements 0 - Exam Gen: awake, alert HEENT: normocephalic, atraumatic, good hearing acuity, moist mucous membranes Resp:good air exchange, no accessory muscle use CVS: good distal perfusion x 4 GI: soft, NTTP, ND : no SPT, no CVAT, fry catheter not present MSK: no pitting edema, no clubbing Neuro: non-focal, no sensory deficits, appropriate tone Psych: cooperative, euthymic mood - Labs CBC & Chem 7: 05/06/20 07:30 05/06/20 07:30 Labs: Abnormal Lab Results - Last 24 Hours (Table) 05/06/20 05/06/20 05/06/20 Range/Units 07:30 12:02 21:09 Est GFR (CKD-EPI)AfAm 58.7 L (60.0-200.0) Est GFR (CKD-EPI)NonAf 50.6 L (60.0-200.0) Glucose 225 H (70-110) mg/dL POC Glucose (mg/dL) 136 H 264 H (75-99) mg/dL Calcium 8.6 L (8.7-10.3) mg/dL Total Protein 5.3 L (6.2-8.2) g/dL Albumin 3.70 L (3.80-4.90) g/dL Assessment and Plan Assessment: 1. Syncope 2. Lower Back pain 3. Severe Aortic Regurgitation 3. COVID-19 with Acute Hypoxemic Respiratory Failure 4. DM, type II 5. GERD 6. HTN 7. Gout 85 year old woman with history of DM/HTN, GERD, Gout presented after syncopal episode with lower back pain and was found to have COVID-19 without hypoxia. Patient expresses feeling very weak since her symptoms began on 05/02, and feels she cannot care for herself at home. PT/OT evaluation pending Syncope Monitor on telemetry Check troponin Echo = severe AR, EF 60-65%, no WMA PT/OT Severe AR avoid beta-blockers cardiology consult I/Os, daily weights Lower back pain and right hip pain Lumbar spine x-ray checked in the emergency department, negative Check right hip x-ray Tylenol when necessary for pain Covid 19 with Acute Hypoxemic Respiratory Failure IV fluids ID consult for remdesivir/plasma in light of respiratory failure History of diabetes type 2 Hold oral hypoglycemics Sliding scale insulin with blood sugar checks every before meals and at bedtime GERD Hypertension, essential Gout All stable Resume meds Patient will be admitted to inpatient, expected length of stay > two midnights.
[2020-05-07 11:21] LABS: Glucose,Whole Blood 129 mg/dL (75-99)
[2020-05-07 13:22] LABS: Basophils % (A) 0 %; Eosinophils % (A) 0 %; HCT 32.2 % (34.0-46.0); HGB 10.8 gm/dL (11.4-16.0); Lymphocytes # (A) 1.3 k/uL (1.0-4.8); Lymphocytes % (A) 23 %; MCHC 33.4 g/dL (31.0-37.0); Mean Platelet Volume 7.2; Monocytes # (A) 0.2 k/uL (0-1.0); Monocytes % (A) 4 %; Neutrophils # (A) 4.2 k/uL (1.3-7.7); Neutrophils % (A) 72 %; Platelet Count 250 k/uL (150-450); RBC 3.58 m/uL (3.80-5.40); RDW 13.5 % (11.5-15.5); WBC 5.9 k/uL (3.8-10.6)
[2020-05-07 13:35] LABS: ALT 7 U/L (4-34); AST 32 U/L (14-36); African American GFR (CKD) 71 (>60 ml/min/1.73 sqM); Albumin 2.9 g/dL (3.5-5.0); Albumin/Globulin Ratio 1.3; Alkaline Phosphatase 59 U/L (38-126); Anion Gap 3 mmol/L; Blood Urea Nitrogen 13 mg/dL (7-17); Carbon Dioxide 31 mmol/L (22-30); Chloride 104 mmol/L (98-107); Globulin 2.3 g/dL; Glucose 115 mg/dL (74-99); LDH 674 U/L (313-618); Non-African American GFR(CKD) 61 (>60 ml/min/1.73 sqM); Potassium 3.6 mmol/L (3.5-5.1); Sodium 138 mmol/L (137-145); Total Bilirubin 0.8 mg/dL (0.2-1.3); Total Protein 5.2 g/dL (6.3-8.2)
--- NOTE | 2020-05-07 13:59 | P.CONS ---
<Capri Nath A - Last Filed: 05/07/20 13:48> History of Present Illness - Reason for Consult Consult date: 05/07/20 COVID-19 - History of Present Illness HISTORY OF PRESENT ILLNESS This is an 85-year-old female initially presented to the emergency center on May 05. Patient gives history that she passed out on of last week. She has some mild shortness of breath and minimal cough. No sputum production. No fever. She denies any abdominal pain, nausea, vomiting or diarrhea. She has been afebrile, pulse ox 97% on 2 L and 90% on room air. Blood pressure 145/55. Chest x-ray reveals slight increased lung markings consistent with mild pulmonary fibrosis. No obvious heart failure. Lung markings increased compared to old exam. COVID-19 detected. No leukocytosis. Initial lymphocytes at 0.9 with repeat today of 1.3. D-dimer 0.93. LDH 674. C-reactive protein and pro-calcitonin ordered and pending. Repeat chest x-ray has also been ordered for today. Patient was started on Lovenox. REVIEW OF SYSTEMS Constitutional: No fever, no chills, no night sweats. No weight change. He reports weakness, reports fatigue. No daytime sleepiness. EENT: No headache. No nasal drainage or congestion. No epistaxis. No sore throat. Lungs: Mild shortness of breath, minimal cough, no sputum production. No wheezing. Cardiovascular: No chest pain, no lower extremity edema. Reports syncopal episodes. Abdominal: No abdominal pain. No nausea, vomiting. No diarrhea. No constipation. No bloody or tarry stools. No loss of appetite. Genitourinary: No dysuria, increased frequency, urgency. No urinary retention. Musculoskeletal: No myalgias. Reported muscle weakness, no gait dysfunction, reported falls. No back pain. No neck pain. Integumentary: No wounds, no lesions. No rash or pruritus. Neurologic: No aphasia. No facial droop. No change in mentation. No head injury. PHYSICAL EXAMINATION Gen: This is a morbidly obese 85-year-old female. VS: Afebrile, heart rate 50, blood pressure 145/55, pulse ox 97% on 2 L. HEENT: Head is atraumatic, normocephalic. Pupils equal, round. Sclerae is anicteric. NECK: Supple. No JVD. No lymphadenopathy. No thyromegaly. LUNGS: Diminished bilaterally. No intercostal retractions. HEART: Regular rate and rhythm. No murmur. ABDOMEN: Soft. Bowel sounds are present. No masses. No tenderness. EXTREMITIES: No pedal edema. No calf tenderness. NEUROLOGICAL: Patient is awake, alert and oriented x3. Cranial nerves 2 through 12 are grossly intact. ASSESSMENT Covid 19 infection Fall and syncopal episode PLAN Inflammatory markers ordered Repeat chest x-ray ordered Recommendations based upon findings of inflammatory markers and chest x-ray Thank you kindly for this consultation. The above dictated assessment and findings were discussed with Dr. Sher. The impression and plan of care have been directed as dictated. Capri Nath nurse practitioner acting as scribe for Dr. Sher. 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, BLIND LEFT EYE, GOUT History of Any Multi-Drug Resistant Organisms: None Reported Past Surgical History: Bowel Resection, Cholecystectomy, Hysterectomy, Orthopedic Surgery Additional Past Surgical History / Comment(s): PALMER ROTATOR CUFF, CATARACT SX Past Anesthesia/Blood Transfusion Reactions: No Reported Reaction Past Psychological History: No Psychological Hx Reported Smoking Status: Never smoker Past Alcohol Use History: None Reported Past Drug Use History: None Reported Medications and Allergies Home Medications Medication Instructions Recorded Confirmed Type NIFEdipine [Adalat cc] 30 mg PO DAILY 10/17/13 05/05/20 History allopurinoL [Zyloprim] 100 mg PO HS 10/17/13 05/05/20 History glipiZIDE XL [Glucotrol Xl] 10 mg PO DAILY 02/27/19 05/05/20 History Losartan [Cozaar] 50 mg PO DAILY 05/05/20 05/05/20 History Omeprazole 20 mg PO DAILY 05/05/20 05/05/20 History Allergies Allergy/AdvReac Type Severity Reaction Status Date / Time Penicillins Allergy Rash/Hives Verified 02/27/19 11:05 Sulfa (Sulfonamide Allergy Rash/Hives Verified 02/27/19 11:05 Antibiotics) morphine AdvReac TURNED Verified 02/27/19 11:05 PURPLE/TROUBLE BREATHING Physical Exam Vitals: Vital Signs Temp Pulse Resp BP Pulse Ox 05/07/20 10:51 98.1 F 50 L 15 145/55 97 05/07/20 05:00 99.2 F 66 20 161/81 92 L 05/06/20 20:00 98.3 F 89 16 139/63 96 Intake and Output 05/06/20 05/07/20 05/07/20 22:59 06:59 14:59 Intake Total 500 Balance 500 Intake: Oral 500 Other: Voiding Method Bedside Commode # Voids 3 # Bowel Movements 0 Weight 120.202 kg Results CBC & Chem 7: 05/07/20 12:50 05/07/20 12:50 Labs: Abnormal Lab Results - Last 24 Hours (Table) 05/06/20 05/07/20 Range/Units 21:09 11:19 POC Glucose (mg/dL) 264 H 129 H (75-99) mg/dL <Baldomero Sher - Last Filed: 05/07/20 23:38> Physical Exam Vitals: Vital Signs Temp Pulse Resp BP Pulse Ox 05/07/20 22:39 98.7 F 72 20 159/64 92 L 05/07/20 20:00 18 05/07/20 17:00 98.1 F 79 18 149/76 96 05/07/20 13:00 90 L 05/07/20 10:51 98.1 F 50 L 15 145/55 97 05/07/20 05:00 99.2 F 66 20 161/81 92 L Intake and Output 05/07/20 05/07/20 05/08/20 14:59 22:59 06:59 Intake Total 240 360 Balance 240 360 Intake: Oral 240 360 Other: Voiding Method Bedside Commode Bedside Commode # Voids 1 Results CBC & Chem 7: 05/07/20 12:50 05/07/20 12:50 Labs: Abnormal Lab Results - Last 24 Hours (Table) 05/07/20 05/07/20 05/07/20 Range/Units 11:19 12:50 12:50 RBC 3.58 L (3.80-5.40) m/uL Hgb 10.8 L (11.4-16.0) gm/dL Hct 32.2 L (34.0-46.0) % D-Dimer 0.93 H (<0.60) mg/L FEU Carbon Dioxide (22-30) mmol/L Glucose (74-99) mg/dL POC Glucose (mg/dL) 129 H (75-99) mg/dL Calcium (8.4-10.2) mg/dL Lactate Dehydrogenase (313-618) U/L C-Reactive Protein (<10.0) mg/L Total Protein (6.3-8.2) g/dL Albumin (3.5-5.0) g/dL 05/07/20 05/07/20 05/07/20 Range/Units 12:50 16:38 20:18 RBC (3.80-5.40) m/uL Hgb (11.4-16.0) gm/dL Hct (34.0-46.0) % D-Dimer (<0.60) mg/L FEU Carbon Dioxide 31 H (22-30) mmol/L Glucose 115 H (74-99) mg/dL POC Glucose (mg/dL) 138 H 153 H (75-99) mg/dL Calcium 8.0 L (8.4-10.2) mg/dL Lactate Dehydrogenase 674 H (313-618) U/L C-Reactive Protein 82.6 H (<10.0) mg/L Total Protein 5.2 L (6.3-8.2) g/dL Albumin 2.9 L (3.5-5.0) g/dL Assessment and Plan Assessment: Patient with acute COVID-19 infection in this patient presented to hospital with syncopal episode and fall patient is currently afebrile and she is satting 96% on room air patient did not have significant lymphopenia or significant finding on the clinical examination possibly mild COVID-19 infection and no suspicious for secondary bacterial infection. (1) Pneumonia due to COVID-19 virus Current Visit: Yes Status: Acute Code(s): U07.1 - COVID-19; J12.89 - OTHER VIRAL PNEUMONIA SNOMED Code(s): [id number] Plan: 1-we will recheck her chest x-ray and check inflammatory markers 2-dexamethasone 6 mg IV daily in addition to the Lovenox and neck zinc sulfate 3-droplet isolation respiratory support We will follow on clinical condition and cultures to further adjust medication if needed Thank you for this consultation we will follow the patient along with you Time with Patient: Greater than 30
[2020-05-07 14:31] LABS: C Reactive Protein 82.6 mg/L (<10.0)
--- NOTE | 2020-05-07 15:49 | XR ---
EXAMINATION TYPE: XR chest 1V portable DATE OF EXAM: 05/07/2020 COMPARISON: 05/05/2020 INDICATION: Covid TECHNIQUE: Single frontal view of the chest is obtained. FINDINGS: The heart size is normal. The pulmonary vasculature is normal. Right lower lobe consolidation is present. This has developed over the interval. Mild left lower lobe infiltrate is present. Findings can be compatible with atypical pneumonia. IMPRESSION: 1. Basilar infiltrates which can be compatible with atypical pneumonia.
[2020-05-07 16:45] LABS: Glucose,Whole Blood 138 mg/dL (75-99)
--- NOTE | 2020-05-07 18:28 | P.CRDCN ---
History of Present Illness History of present illness: HISTORY OF PRESENTING ILLNESS This is a pleasant 85-year-old female past medical history significant for CVA, diabetes mellitus, hypertension, severe aortic regurgitation who presented secondary to loss of consciousness and fall. She follows in the office with Dr. Ramirez. We have been asked to see in consultation for severe aortic regurgitation. Patient admits that she has not really been feeling that well since Thanksgiving. She does not recall any sick contacts however has noted fee ling lethargic and weak over the past one week. She believes she passed out however does not recall recurrence and believes she fell and her but as her butt hurt. She does admit to feeling somewhat short of breath however overall feels like her breathing is at her baseline. She was tested for rotavirus which was found to be positive. She had an echocardiogram performed which showed ejection fraction 60-65%, borderline LVH, mild aortic stenosis, severe aortic regurgitation, moderate mitral regurgitation. There is no significant left ventricular dilation. DIAGNOSTICS EKG reveals sinus rhythm, left axis deviation, poor R-wave progression, left anterior fascicular block. Chest xray basilar infiltrates which can be compatible with atypical pneumonia. Laboratory reviewed, white blood cell count 5.9, hemoglobin 10.8, platelets 250, d-dimer 0.93, creatinine 0.86, troponin 0.015, 0.018. Current cardiac medications include Lovenox 40 mg subcu daily, losartan 50 mg daily, nifedipine 30 mg daily. REVIEW OF SYSTEMS At the time of my exam: CONSTITUTIONAL: Denies fever or chills. CARDIOVASCULAR: Denies chest pain, +shortness of breath, no orthopnea, PND or palpitations. RESPIRATORY: Denies cough. GASTROINTESTINAL: Denies abdominal pain, diarrhea, constipation, nausea or vomiting. MUSCULOSKELETAL: Denies myalgias. NEUROLOGIC: Denies numbness, tingling or weakness. ENDOCRINE: Denies fatigue, weight change, polydipsia or polyurina. GENITOURINARY: Denies burning, hematuria or urgency with micturation. HEMATOLOGIC: Denies history of anemia or bleeding. PHYSICAL EXAMINATION Blood pressure 149/76 heart rate 79 afebrile and maintaining oxygen saturation on room air. CONSTITUTIONAL: No apparent distress, elderly, chronically ill-appearing, left eye deviation. HEENT: Head is normocephalic. Pupils are equal, round. Sclerae anicteric. Mucous membranes of the mouth are moist. No JVD. No carotid bruit. CHEST EXAMINATION: + Bilateral rhonchi, No chest wall tenderness is noted on pa lpation or with deep breathing. HEART EXAMINATION: Regular rate and rhythm. S1, S2 heard. +2/6 systolic ejection and +2/4 diastolic murmur, no gallops or rub. ABDOMEN: Soft, nontender. Positive bowel sounds. EXTREMITIES: 2+ peripheral pulses, no lower extremity edema and no calf tenderness. NEUROLOGIC EXAMINATION: Patient is awake, alert and oriented x3. ASSESSMENT 1. Severe aortic regurgitation, appears asymptomatic without significant left ventricular dilation 2. Moderate mitral regurgitation 3. Covid 19 pneumonia 4. Loss of consciousness, unclear if true syncope. Likely related to i nfection/ Covid 19 5. Essential hypertension 6. Diabetes mellitus 7. History of CVA PLAN Echocardiogram reviewed and does show severe aortic regurgitation. There is however no significant left ventricular dilation and unclear if patient is actually symptomatic from her severe aortic regurgitation. Therefore there would be no indication to perform any aortic valve replacement. Additionally christie iven her age, medical comorbidities as well as current infection, no current indication. Patient with unclear loss of consciousness, however suspect related to her infection as she had been feeling weak for a few days prior to this. Would recommend outpatient follow-up with possible consideration of event monitor if suspicion of cardiogenic syncope. Continue telemetry and and patient setting. No further recommendations from a cardiology standpoint. Please call with any questions. 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, BLIND LEFT EYE, GOUT History of Any Multi-Drug Resistant Organisms: None Reported Past Surgical History: Bowel Resection, Cholecystectomy, Hysterectomy, Orthopedic Surgery Additional Past Surgical History / Comment(s): PALMER ROTATOR CUFF, CATARACT SX Past Anesthesia/Blood Transfusion Reactions: No Reported Reaction Past Psychological History: No Psychological Hx Reported Smoking Status: Never smoker Past Alcohol Use History: None Reported Past Drug Use History: None Reported Medications and Allergies Home Medications Medication Instructions Recorded Confirmed Type NIFEdipine [Adalat cc] 30 mg PO DAILY 10/17/13 05/05/20 History allopurinoL [Zyloprim] 100 mg PO HS 10/17/13 05/05/20 History glipiZIDE XL [Glucotrol Xl] 10 mg PO DAILY 02/27/19 05/05/20 History Losartan [Cozaar] 50 mg PO DAILY 05/05/20 05/05/20 History Omeprazole 20 mg PO DAILY 05/05/20 05/05/20 History Allergies Allergy/AdvReac Type Severity Reaction Status Date / Time Penicillins Allergy Rash/Hives Verified 02/27/19 11:05 Sulfa (Sulfonamide Allergy Rash/Hives Verified 02/27/19 11:05 Antibiotics) morphine AdvReac TURNED Verified 02/27/19 11:05 PURPLE/TROUBLE BREATHING Physical Exam Vitals: Vital Signs Temp Pulse Resp BP Pulse Ox 05/07/20 17:00 98.1 F 79 18 149/76 96 05/07/20 13:00 90 L 05/07/20 10:51 98.1 F 50 L 15 145/55 97 05/07/20 05:00 99.2 F 66 20 161/81 92 L 05/06/20 20:00 98.3 F 89 16 139/63 96 Intake and Output 05/07/20 05/07/20 05/07/20 06:59 14:59 22:59 Intake Total 500 240 Balance 500 240 Intake: Oral 500 240 Other: Voiding Method Bedside Commode # Voids 3 1 Results 05/07/20 12:50 05/07/20 12:50 Cardiac Enzymes 05/07/20 Range/Units 12:50 AST 32 (14-36) U/L Lactate Dehydrogenase 674 H (313-618) U/L CBC 05/07/20 Range/Units 12:50 WBC 5.9 (3.8-10.6) k/uL RBC 3.58 L (3.80-5.40) m/uL Hgb 10.8 L (11.4-16.0) gm/dL Hct 32.2 L (34.0-46.0) % Plt Count 250 (150-450) k/uL Comprehensive Metabolic Panel 05/07/20 Range/Units 12:50 Sodium 138 (137-145) mmol/L Potassium 3.6 (3.5-5.1) mmol/L Chloride 104 (98-107) mmol/L Carbon Dioxide 31 H (22-30) mmol/L BUN 13 (7-17) mg/dL Creatinine 0.86 (0.52-1.04) mg/dL Glucose 115 H (74-99) mg/dL Calcium 8.0 L (8.4-10.2) mg/dL AST 32 (14-36) U/L ALT 7 (4-34) U/L Alkaline Phosphatase 59 (38-126) U/L Total Protein 5.2 L (6.3-8.2) g/dL Albumin 2.9 L (3.5-5.0) g/dL Current Medications Generic Name Dose Route Start Last Admin Trade Name Freq PRN Reason Stop Dose Admin Acetaminophen 650 mg 05/05/20 16:53 05/07/20 04:18 Acetaminophen Tab 325 Mg Tab PO 650 mg Q6HR PRN Administration Mild Pain or Fever > 100.5 Allopurinol 100 mg 05/05/20 21:00 05/06/20 22:10 Allopurinol 100 Mg Tab PO 100 mg HS LISSA Administration Enoxaparin Sodium 40 mg 05/05/20 17:00 05/07/20 09:14 Enoxaparin 40 Mg/0.4 Ml Syringe SQ 40 mg DAILY LISSA Administration Insulin Aspart 0 unit 05/05/20 17:30 05/07/20 16:40 Insulin Aspart (Novolog) 100 Unit/Ml Vial SQ Not Given ACHS [facility] Protocol Losartan Potassium 50 mg 05/06/20 09:00 05/07/20 09:13 Losartan 50 Mg Tab PO 50 mg DAILY LISSA Administration Naloxone HCl 0.2 mg 05/05/20 16:53 Naloxone 0.4 Mg/Ml 1 Ml Vial IV Q2M PRN Opioid Reversal Nifedipine 30 mg 05/06/20 09:00 05/07/20 09:13 Nifedipine Xl 30 Mg Tab.Er.24 PO 30 mg DAILY LISSA Administration Pantoprazole Sodium 40 mg 05/06/20 07:30 05/07/20 09:13 Pantoprazole 40 Mg Tablet PO 40 mg [id number] LISSA Administration Intake and Output 05/07/20 05/07/20 05/07/20 06:59 14:59 22:59 Intake Total 500 240 Balance 500 240 Intake: Oral 500 240 Other: Voiding Method Bedside Commode # Voids 3 1 05/07/20 12:50 05/07/20 12:50
[2020-05-07 20:51] LABS: Glucose,Whole Blood 153 mg/dL (75-99)
[2020-05-07] MEDS: allopurinoL 100 MG TAB PO SCH (21:27)
[2020-05-07] MEDS: DEXAMETHASONE SOD PHOSPHATE 10 MG/ML 1 ML VIAL IV SCH (22:02)
[2020-05-08 07:12] LABS: Glucose,Whole Blood 180 mg/dL (75-99)
[2020-05-08] MEDS: INSULIN ASPART (NovoLOG) 100 UNIT/ML VIAL SQ SCH (07:43)
[2020-05-08] MEDS: PANTOPRAZOLE 40 MG TABLET PO SCH (07:43)
[2020-05-08] MEDS ORDERED: ZINC SULFATE 220 MG CAP PO SCH (09:00)
[2020-05-08] MEDS: LOSARTAN 50 MG TAB PO SCH (09:54)
[2020-05-08] MEDS: ENOXAPARIN 40 MG/0.4 ML SYRINGE SQ SCH (09:54)
[2020-05-08] MEDS: DEXAMETHASONE SOD PHOSPHATE 10 MG/ML 1 ML VIAL IV SCH ×2 (09:55→10:34)
[2020-05-08 10:48] VITALS: BP 124/64; PULSE 69; RESP 17; TEMP 97.9
[2020-05-08 11:12] LABS: Glucose,Whole Blood 279 mg/dL (75-99)
[2020-05-08] MEDS: NIFEdipine XL 30 MG TAB.ER.24 PO SCH (11:24)
--- NOTE | 2020-05-08 13:04 | P.DS ---
Providers Date of admission: 05/05/20 14:56 Expected date of discharge: 05/08/20 Attending physician: Prudence Madrid Consults: 05/06/20 18:38 Consult Physician Routine Consulting Provider: Nuris Ramirez Consult Reason/Comments: severe aortic regurgitation Do you want consulting provider notified?: Yes 05/07/20 08:52 Consult Physician Routine Consulting Provider: Baldomero Sher Consult Reason/Comments: covid, pneumonia Do you want consulting provider notified?: Yes Primary care physician: Irma Anna [facility] Course: 1. Syncope 2. Lower Back pain 3. Severe Aortic Regurgitation 3. COVID-19 with Acute Hypoxemic Respiratory Failure 4. DM, type II 5. GERD 6. HTN 7. Gout 85 year old woman with history of DM/HTN, GERD, Gout presented after syncopal episode with lower back pain and was found to have COVID-19 without hypoxia. Patient expressed feeling very weak since her symptoms began on 05/02, and felt she cannot care for herself at home. PT/OT evaluation recommended SNF, but patient reported that she would prefer to go home with family support and home PT/OT. Work up of syncope in house revealed severe AR, for which cardiology was consulted, and recommended she be followed closely as an outpatient should she develop an indication for TAVR, which she does not have at this time. Regarding COVID, ID was consulted for consideration of remdesivir and plasma, but deferred this as patient recovered back to room air without any intervention, and she was likely outside the window of benefit for either. Pt discharged home with home PT/OT, with instructions to follow up with PCP, cardiology. Her last date of quarantine would be today. I spent 35 minutes preparing this discharge. Assessment: Gen: awake, alert HEENT: normocephalic, atraumatic, good hearing acuity, moist mucous membranes Resp:good air exchange, no accessory muscle use CVS: good distal perfusion x 4 GI: soft, NTTP, ND : no SPT, no CVAT, fry catheter not present MSK: no pitting edema, no clubbing Neuro: non-focal, no sensory deficits, appropriate tone Psych: cooperative, euthymic mood Patient Condition at Discharge: Fair Plan - Discharge Summary Discharge Rx Participant: Yes New Discharge Prescriptions: New RX: Dexamethasone [Decadron] 6 mg PO DAILY #6 tablet RX: Zinc Sulfate [Orazinc] 220 mg PO DAILY #15 cap RX: Acetaminophen Tab [Tylenol] 650 mg PO Q6HR PRN tab PRN Reason: Mild Pain Or Fever > 100.5 Ascorbic Acid [Vitamin C] 1,000 mg PO DAILY #10 tablet Continue RX: allopurinoL [Zyloprim] 100 mg PO HS RX: NIFEdipine [Adalat cc] 30 mg PO DAILY RX: glipiZIDE XL [Glucotrol XL] 10 mg PO DAILY RX: Losartan [Cozaar] 50 mg PO DAILY RX: Omeprazole 20 mg PO DAILY Discharge Medication List RX: NIFEdipine [Adalat cc] 30 mg PO DAILY 10/17/13 [History] RX: allopurinoL [Zyloprim] 100 mg PO HS 10/17/13 [History] RX: glipiZIDE XL [Glucotrol XL] 10 mg PO DAILY 02/27/19 [History] RX: Losartan [Cozaar] 50 mg PO DAILY 05/05/20 [History] RX: Omeprazole 20 mg PO DAILY 05/05/20 [History] Ascorbic Acid [Vitamin C] 1,000 mg PO DAILY #10 tablet 05/08/20 [Rx] RX: Acetaminophen Tab [Tylenol] 650 mg PO Q6HR PRN tab 05/08/20 [Rx] RX: Dexamethasone [Decadron] 6 mg PO DAILY #6 tablet 05/08/20 [Rx] RX: Zinc Sulfate [Orazinc] 220 mg PO DAILY #15 cap 05/08/20 [Rx] Follow up Appointment(s)/Referral(s): Irma Anna MD [Primary Care Provider] - 05/21/20 2:20 pm [facility] Visiting Nurse, [NON-STAFF] - Patient Instructions/Handouts: Viral Pneumonia (DC), Syncope (DC)
--- NOTE | 2020-05-09 08:07 | CDI ---
Documentation Clarification Form Date: 05/09/2020 07:58:00 AM From: Leona Coleman Phone: If you have a question about this query, please contact Nasrin Rivera [employer] at [phone] between 8am and 5pm. Admit Date: 05/05/2020 02:56:00 PM Patient Name: Rima St Visit Number: [id number] Discharge Date: 05/08/2020 01:09:00 PM ATTENTION: The Clinical Documentation Specialists (CDI) and [facility] Coding Staff appreciate your assistance in clarifying documentation. Please respond to the clarification below the line at the bottom and electronically sign. The CDI & [facility] Coding staff will review the response and follow-up if needed. Please note: Queries are made part of the Legal Health Record. If you have any questions, please contact the author of this message via ITS. Dr. Selin Suazo Conflicting documentation has been found in the medical record: Per DCS and PN's Acute hypoxemic respiratory failure is documented in Hospital Course and the body of the report "without hyoxia" is documented. Patient recovered back to room air without intervention. Please clarify if patient had Acute hypoxemic respiratory failure or was this ruled out. History/Risk Factors: Covid 19 positive Clinical Indicators: Patient at 95% on RA on admit down to 90 RA Treatment: 2 NC In your opinion, what is the most clinically appropriate diagnosis for this patient? Acute hypoxic respiratory failure Acute respiratory failure Acute hypoxic respiratory failure ruled out Acute Respiratory failure ruled out Other explanation of clinical findings Unable to determine (no explanation for clinical findings) Ruled out, likely chronic nocturnal hypoxia MTDD
--- NOTE | 2020-05-09 08:32 | CDI ---
Documentation Clarification Form Date: 05/09/2020 08:09:00 AM From: Leona Coleman Phone: If you have a question about this query, please contact Nasrin Rivera Aprn at [phone] between 8am and 5pm. Admit Date: 05/05/2020 02:56:00 PM Patient Name: Rima St Visit Number: [id number] Discharge Date: 05/08/2020 01:09:00 PM ATTENTION: The Clinical Documentation Specialists (CDI) and [facility] Coding Staff appreciate your assistance in clarifying documentation. Please respond to the clarification below the line at the bottom and electronically sign. The CDI & [facility] Coding staff will review the response and follow-up if needed. Please note: Queries are made part of the Legal Health Record. If you have any questions, please contact the author of this message via ITS. Dr. Selin Suazo Covid 19 Pneumonia is documented by ID consult and Cardiology Consult. The diagnosis of Covid 19 pneumonia is not carried through chart. Please clarify if patient had Covid 19 pneumonia or did patient have Covid 19 without pneumonia. History/Risk Factors: Covid positive, syncope Vital signs: 98.5 F, 78 bpm, 18, 180/78, 95 RA - 90 RA WBC/Left shift: 6.2 X-ray: lung markings increased Pulmonary fibrosis Treatment: Dexamethasone, Lovenox, Zinc sulfate, droplet isolation, respiratory support O2 2 NC In order to capture the severity of condition, please clarify if the condition signifies and you are treating for: Covid 19 pneumonia Covid 19 without pneumonia Other, please specify Unable to determine COVID 19 without pneumonia MTDD
== END 2020-05-08 13:09 | disposition home health service (06) | DRG 178 ==
LOC: EC 13:23 → 6NMEDSUR 14:56
PROVIDERS: ADMIT Internal Medicine; ATTEND Internal Medicine
DX: U07.1 COVID-19 (principal); Z68.42 Body mass index [BMI] 45.0-49.9, adult; E66.01 Morbid (severe) obesity due to excess calories; D72.810 Lymphocytopenia; E11.9 Type 2 diabetes mellitus without complications; H54.62 Unqualified visual loss, left eye, normal vision right eye; I08.0 Rheumatic disorders of both mitral and aortic valves; I10 Essential (primary) hypertension; I44.4 Left anterior fascicular block; R55 Syncope and collapse; I49.9 Cardiac arrhythmia, unspecified; K21.9 Gastro-esophageal reflux disease without esophagitis; M10.9 Gout, unspecified; M54.5 Low back pain; M25.551 Pain in right hip; W19.XXXA Unspecified fall, initial encounter; Z79.84 Long term (current) use of oral hypoglycemic drugs; G47.34 Idiopathic sleep related nonobstructive alveolar hypoventilation; Z79.899 Other long term (current) drug therapy; Z86.73 Personal history of transient ischemic attack (TIA), and cerebral infarction without residual deficits; Z87.891 Personal history of nicotine dependence; Z90.710 Acquired absence of both cervix and uterus; Z90.49 Acquired absence of other specified parts of digestive tract; Z98.49 Cataract extraction status, unspecified eye; Z88.5 Allergy status to narcotic agent; Z88.0 Allergy status to penicillin; Z88.2 Allergy status to sulfonamides
CPT/HCPCS: 36415; 71045; 71046; 72110; 72170; 80053; 81001; 83605; 83615; 83735; 84100; 84145; 84484; 85025; 85379; 85610; 85730; 86140; 87635; 93005; 93306; 96361; 96372; 96374; 99291

== ENCOUNTER 2020-05-16 14:50 | Inpatient (IN) | payer MEDICARE ==
[2020-05-16] MEDS ORDERED: SODIUM CHLORIDE 0.9% 500 ML 500 ML IV STA ×2 (15:11→15:48)
--- NOTE | 2020-05-16 15:21 | ED ---
SOB HPI - General Chief Complaint: Shortness of Breath Stated Complaint: Weakness, SOB Time Seen by Provider: 05/16/20 14:54 Source: patient, EMS Mode of arrival: EMS Limitations: no limitations - History of Present Illness Initial Comments: Patient is an 85-year-old female, with history of CVA, diabetes, hypertension, presenting to the emergency Department, via EMS, with complaints of shortness of breath. Patient was recently released from this hospital one week ago after being treated for covert pneumonia. Patient states she has been taking her medications as she was prescribed but continues to feel short of breath. She states she is not normally on oxygen at home and she was satting at 88% on room air upon arrival. Patient was placed on 4 L of O2 is currently satting at 94%. Patient denies any pain anywhere, no chest pain, no belly pain, no nausea or vomiting. She states her appetite continues to be low and she continues to feel more and more short of breath. Patient denies having a fever. Patient has no further complaints at this time. Upon arrival to the ER, she is afebrile at 98.8, pulse is 90, respirations 18, BP is 143/65, 94% on 4 L. - Related Data Home Medications Medication Instructions Recorded Confirmed allopurinoL [Zyloprim] 200 mg PO HS 10/17/13 05/16/20 glipiZIDE XL [Glucotrol XL] 10 mg PO DAILY 02/27/19 05/16/20 Losartan [Cozaar] 50 mg PO DAILY 05/05/20 05/16/20 Omeprazole 20 mg PO DAILY 05/05/20 05/16/20 NIFEdipine XL [Procardia Xl] 30 mg PO DAILY 05/16/20 05/16/20 Previous Rx's Medication Instructions Recorded Acetaminophen Tab [Tylenol] 650 mg PO Q6HR PRN tab 05/08/20 Ascorbic Acid [Vitamin C] 1,000 mg PO DAILY #10 tablet 05/08/20 Dexamethasone [Decadron] 6 mg PO DAILY #6 tablet 05/08/20 Allergies Allergy/AdvReac Type Severity Reaction Status Date / Time Penicillins Allergy Rash/Hives Verified 05/16/20 16:19 Sulfa (Sulfonamide Allergy Rash/Hives Verified 05/16/20 16:19 Antibiotics) morphine AdvReac TURNED Verified 12/17/20 16:19 PURPLE/TROUBLE BREATHING Review of Systems ROS Statement: Those systems with pertinent positive or pertinent negative responses have been documented in the HPI. ROS Other: All systems not noted in ROS Statement are negative. 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, BLIND LEFT EYE, GOUT, Pneumonia, COVID+ History of Any Multi-Drug Resistant Organisms: None Reported Past Surgical History: Bowel Resection, Cholecystectomy, Hysterectomy, Orthopedic Surgery Additional Past Surgical History / Comment(s): PALMER ROTATOR CUFF, CATARACT SX Past Anesthesia/Blood Transfusion Reactions: No Reported Reaction Past Psychological History: No Psychological Hx Reported Smoking Status: Never smoker Past Alcohol Use History: None Reported Past Drug Use History: None Reported General Exam - General Exam Comments Initial Comments: GENERAL: Patient appears fatigued, in no acute distress. HEAD: Atraumatic, normocephalic. EYES: Pupils equal round and reactive to light, extraocular movements intact, sclera anicteric, conjunctiva are normal. Eyelids were unremarkable. ENT: TMs normal, nares patent, oropharynx clear without exudates. Moist mucous membranes. NECK: Normal range of motion, supple without lymphadenopathy or JVD. LUNGS: Unlabored respirations. Scattered wheezes, rhonchi. HEART: Regular rate and rhythm without murmurs, rubs or gallops. ABDOMEN: Soft, nontender, normoactive bowel sounds. No guarding, no rebound. No masses appreciated. : Deferred MUSCULOSKELETAL: Normal extremities with adequate strength and normal range of motion, no pitting or edema. No clubbing or cyanosis. NEUROLOGICAL: Patient is alert and oriented x 3. Motor and sensory are also intact. Cranial nerves II through XII grossly intact. Symmetrical smile. Normal speech, normal gait. PSYCH: Normal mood, normal affect. SKIN: Warm, Dry, normal turgor, no rashes or lesions noted. Limitations: no limitations Course Vital Signs 05/16/20 05/16/20 15:07 16:17 Temperature 98.8 F Pulse Rate 90 Respiratory 18 18 Rate Blood Pressure 143/65 O2 Sat by Pulse 94 L Oximetry Medical Decision Making - Medical Decision Making Patient is an 85-year-old female here for increasing shortness of breath. She was discharged from the hospital one week ago for Covid pneumonia, hypoxia. She has no oxygen at home. In the EMS she was satting 85% on room air. Patient is currently on 4 L, 94%. EKG shows no acute process, white count is elevated at 12.7, sodium potassium are low, 131, 2.9 respectively. Lactic acid is elevated at 3.1, troponin is 0.022. Chest x-ray shows low lung volumes, cardiomegaly with persistent but improving right basilar acute infiltrate. Worsening left peripheral and basilar acute infiltrates, with known Covid 19 infection. Patient will be admitted to the hospital for worsening hypoxia, requiring 4 L. Patient was given dose of Decadron in the ER. CRP and dimer are pending. Patient accepted by Dr. Rausch. Case discussed with Dr. España. - Lab Data Result diagrams: 05/16/20 15:04 05/16/20 15:04 Lab Results 05/16/20 05/16/20 05/16/20 Range/Units 15:04 15:04 15:04 WBC 12.7 H (3.8-10.6) k/uL RBC 4.06 (3.80-5.40) m/uL Hgb 12.1 (11.4-16.0) gm/dL Hct 35.3 (34.0-46.0) % MCV 86.9 (80.0-100.0) fL MCH 29.9 (25.0-35.0) pg MCHC 34.4 (31.0-37.0) g/dL RDW 13.5 (11.5-15.5) % Plt Count 341 (150-450) k/uL MPV 7.1 Neutrophils % 74 % Lymphocytes % 20 % Monocytes % 3 % Eosinophils % 1 % Basophils % 1 % Neutrophils # 9.4 H (1.3-7.7) k/uL Lymphocytes # 2.6 (1.0-4.8) k/uL Monocytes # 0.4 (0-1.0) k/uL Eosinophils # 0.1 (0-0.7) k/uL Basophils # 0.1 (0-0.2) k/uL PT 10.1 (9.0-12.0) sec INR 1.0 (<1.2) APTT 23.6 (22.0-30.0) sec Sodium 131 L (137-145) mmol/L Potassium 2.9 L (3.5-5.1) mmol/L Chloride 98 (98-107) mmol/L Carbon Dioxide 28 (22-30) mmol/L Anion Gap 5 mmol/L BUN 17 (7-17) mg/dL Creatinine 0.67 (0.52-1.04) mg/dL Est GFR (CKD-EPI)AfAm >90 (>60 ml/min/1.73 sqM) Est GFR (CKD-EPI)NonAf 79 (>60 ml/min/1.73 sqM) Glucose 257 H (74-99) mg/dL Lactic Ac Sepsis Rflx Plasma Lactic Acid Loco (0.7-2.0) mmol/L Calcium 8.0 L (8.4-10.2) mg/dL Magnesium 2.0 (1.6-2.3) mg/dL Total Bilirubin 0.9 (0.2-1.3) mg/dL AST 30 (14-36) U/L ALT 15 (4-34) U/L Alkaline Phosphatase 71 (38-126) U/L Troponin I (0.000-0.034) ng/mL NT-Pro-B Natriuret Pep pg/mL Total Protein 5.6 L (6.3-8.2) g/dL Albumin 3.1 L (3.5-5.0) g/dL 05/16/20 05/16/20 05/16/20 Range/Units 15:04 15:04 15:04 WBC (3.8-10.6) k/uL RBC (3.80-5.40) m/uL Hgb (11.4-16.0) gm/dL Hct (34.0-46.0) % MCV (80.0-100.0) fL MCH (25.0-35.0) pg MCHC (31.0-37.0) g/dL RDW (11.5-15.5) % Plt Count (150-450) k/uL MPV Neutrophils % % Lymphocytes % % Monocytes % % Eosinophils % % Basophils % % Neutrophils # (1.3-7.7) k/uL Lymphocytes # (1.0-4.8) k/uL Monocytes # (0-1.0) k/uL Eosinophils # (0-0.7) k/uL Basophils # (0-0.2) k/uL PT (9.0-12.0) sec INR (<1.2) APTT (22.0-30.0) sec Sodium (137-145) mmol/L Potassium (3.5-5.1) mmol/L Chloride (98-107) mmol/L Carbon Dioxide (22-30) mmol/L Anion Gap mmol/L BUN (7-17) mg/dL Creatinine (0.52-1.04) mg/dL Est GFR (CKD-EPI)AfAm (>60 ml/min/1.73 sqM) Est GFR (CKD-EPI)NonAf (>60 ml/min/1.73 sqM) Glucose (74-99) mg/dL Lactic Ac Sepsis Rflx Plasma Lactic Acid Loco 3.1 H* (0.7-2.0) mmol/L Calcium (8.4-10.2) mg/dL Magnesium (1.6-2.3) mg/dL Total Bilirubin (0.2-1.3) mg/dL AST (14-36) U/L ALT (4-34) U/L Alkaline Phosphatase (38-126) U/L Troponin I 0.022 (0.000-0.034) ng/mL NT-Pro-B Natriuret Pep 981 pg/mL Total Protein (6.3-8.2) g/dL Albumin (3.5-5.0) g/dL 05/16/20 Range/Units 15:45 WBC (3.8-10.6) k/uL RBC (3.80-5.40) m/uL Hgb (11.4-16.0) gm/dL Hct (34.0-46.0) % MCV (80.0-100.0) fL MCH (25.0-35.0) pg MCHC (31.0-37.0) g/dL RDW (11.5-15.5) % Plt Count (150-450) k/uL MPV Neutrophils % % Lymphocytes % % Monocytes % % Eosinophils % % Basophils % % Neutrophils # (1.3-7.7) k/uL Lymphocytes # (1.0-4.8) k/uL Monocytes # (0-1.0) k/uL Eosinophils # (0-0.7) k/uL Basophils # (0-0.2) k/uL PT (9.0-12.0) sec INR (<1.2) APTT (22.0-30.0) sec Sodium (137-145) mmol/L Potassium (3.5-5.1) mmol/L Chloride (98-107) mmol/L Carbon Dioxide (22-30) mmol/L Anion Gap mmol/L BUN (7-17) mg/dL Creatinine (0.52-1.04) mg/dL Est GFR (CKD-EPI)AfAm (>60 ml/min/1.73 sqM) Est GFR (CKD-EPI)NonAf (>60 ml/min/1.73 sqM) Glucose (74-99) mg/dL Lactic Ac Sepsis Rflx Y Plasma Lactic Acid Loco (0.7-2.0) mmol/L Calcium (8.4-10.2) mg/dL Magnesium (1.6-2.3) mg/dL Total Bilirubin (0.2-1.3) mg/dL AST (14-36) U/L ALT (4-34) U/L Alkaline Phosphatase (38-126) U/L Troponin I (0.000-0.034) ng/mL NT-Pro-B Natriuret Pep pg/mL Total Protein (6.3-8.2) g/dL Albumin (3.5-5.0) g/dL - EKG Data EKG Comments: Sinus rhythm with first-degree AV block, PACs, left ventricular hypertrophy, no signs of an acute process, ventricular rate 88, AL interval 232, QTC 394. Disposition Clinical Impression: Hypoxia, Pneumonia due to COVID-19 virus, Lactic acidosis, Hypokalemia Disposition: ADMITTED IP TO THIS [facility] Condition: Fair Decision Date: 05/16/20 Decision Time: 16:35
[2020-05-16 15:23] LABS: Basophils # (A) 0.1 k/uL (0-0.2); Basophils % (A) 1 %; Eosinophils # (A) 0.1 k/uL (0-0.7); Eosinophils % (A) 1 %; HCT 35.3 % (34.0-46.0); HGB 12.1 gm/dL (11.4-16.0); Lymphocytes # (A) 2.6 k/uL (1.0-4.8); Lymphocytes % (A) 20 %; MCH 29.9 pg (25.0-35.0); MCHC 34.4 g/dL (31.0-37.0); MCV 86.9 fL (80.0-100.0); Mean Platelet Volume 7.1; Monocytes # (A) 0.4 k/uL (0-1.0); Monocytes % (A) 3 %; Neutrophils # (A) 9.4 k/uL (1.3-7.7); Neutrophils % (A) 74 %; Platelet Count 341 k/uL (150-450); RBC 4.06 m/uL (3.80-5.40); RDW 13.5 % (11.5-15.5); WBC 12.7 k/uL (3.8-10.6)
[2020-05-16] MEDS ORDERED: DEXAMETHASONE SOD PHOSPHATE 10 MG/ML 1 ML VIAL IV STA (15:26)
[2020-05-16 15:31] LABS: Partial Thromboplastin Time 23.6 sec (22.0-30.0); Prothrombin Time 10.1 sec (9.0-12.0)
[2020-05-16 15:41] LABS: ALT 15 U/L (4-34); AST 30 U/L (14-36); African American GFR (CKD) >90 (>60 ml/min/1.73 sqM); Albumin 3.1 g/dL (3.5-5.0); Alkaline Phosphatase 71 U/L (38-126); Anion Gap 5 mmol/L; Blood Urea Nitrogen 17 mg/dL (7-17); Carbon Dioxide 28 mmol/L (22-30); Chloride 98 mmol/L (98-107); Glucose 257 mg/dL (74-99); Non-African American GFR(CKD) 79 (>60 ml/min/1.73 sqM); Potassium 2.9 mmol/L (3.5-5.1); Sodium 131 mmol/L (137-145); Total Bilirubin 0.9 mg/dL (0.2-1.3); Total Protein 5.6 g/dL (6.3-8.2)
--- NOTE | 2020-05-16 15:42 | XR ---
EXAMINATION TYPE: XR chest 2V DATE OF EXAM: 05/16/2020 COMPARISON: Chest x-ray 9 days ago HISTORY: Weakness and shortness of breath. History of covid pneumonia. TECHNIQUE: Frontal and lateral views of the chest are obtained. FINDINGS: Metallic anchors bilateral humeral heads are redemonstrated. Persistent low lung volumes a nd cardiomegaly with atherosclerotic and ectatic aorta causing right-sided tracheal deviation. There is some improved aeration in the right lung base but there are worsening peripheral left mid and basi lar opacities. No pleural effusion or pneumothorax noted.. IMPRESSION: Low lung volumes and cardiomegaly with persistent but improving right basilar acute infi ltrate. Worsening left peripheral and basilar acute infiltrates. Findings consistent with known covid 19 infection.
[2020-05-16] MEDS ORDERED: ONDANSETRON 4 MG/2 ML VIAL IVP PRN (16:27)
[2020-05-16] MEDS ORDERED: NALOXONE 0.4 MG/ML 1 ML VIAL IV PRN (16:27)
[2020-05-16] MEDS ORDERED: ALBUTEROL HFA INHALER INHALATION PRN (17:07)
[2020-05-16] MEDS ORDERED: POTASSIUM BICARBONATE/CIT AC 20 MEQ TABLET.EFF PO ONE (17:19)
[2020-05-16] MEDS: SODIUM CHLORIDE 0.9% 1,000 ML IV SCH (17:39)
[2020-05-16] MEDS: POTASSIUM CHLORIDE 10 MEQ in WATER FOR INJECTION 1 100ML.BAG IVPB SCH ×2 (17:53→20:55)
[2020-05-16] MEDS ORDERED: MELATONIN 5 MG TABLET PO PRN (18:20)
[2020-05-16] MEDS ORDERED: ACETAMINOPHEN TAB 325 MG TAB PO PRN (18:20)
--- NOTE | 2020-05-16 18:25 | P.HPIM ---
History of Present Illness H&P Date: 05/16/20 Chief Complaint: shortness of breath Patient is a 85-year-old with diabetes, hypertension, osteoarthritis, and left eye blindness who presented to the emergency department with complaints of shortness of breath. She was recently hospitalized here from 05/05 through 05/08 secondary to syncopal episode and low back pain. During that hospital stay she was also found have cold in 19 pneumonia with acute hypoxemic respiratory failure. She was considered for REM to severe and convalescent plasma however her oxygenation requirements returned to room air and this was deferred. She did complete a course of dexamethasone which was continued on discharge. During that hospital stay they have recommended senior living facility however patient preferred to go home with family. On arrival to the ER she was found to have an O2 sat of 85% on room air. Laboratory analysis shows sodium 131, potassium 2.9, white blood cell count 12.7, lactic acid 3.1. She was started on IV fluids and given 1 dose of IV Decadron in the ER. Arrangements were made for admission. Patient seen and examined at bedside. She states over the last several days her breathing has worsened. It is worse with exertion and better at rest. She has had difficulty sleeping secondary to her shortness. She also reports that she has had some leg cramping and twitching. She has felt very weak and had a hard time ambulating. She has been using a walker. She has had loss of her sense of smell however taste is intact. She denies nausea, vomiting, or diarrhea. She states that she has been eating and drinking well and her appetite has been intact. She is not having any chest pain. She states she still had 1 or 2 days of dexamethasone left at home. She has not yet seen her primary care physician. She reports that her daughter, niece, and sister have all taking turns staying at her house to care for her. Review of Systems Pertinent positives and negatives as discussed in HPI, a complete review of systems was performed and all other systems are negative. 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 STROKE, BLIND LEFT EYE, GOUT, Pneumonia, COVID+ History of Any Multi-Drug Resistant Organisms: None Reported Past Surgical History: Bowel Resection, Cholecystectomy, Hysterectomy, Orthopedic Surgery Additional Past Surgical History / Comment(s): PALMER ROTATOR CUFF, CATARACT SX Past Anesthesia/Blood Transfusion Reactions: No Reported Reaction Past Psychological History: No Psychological Hx Reported Smoking Status: Never smoker Past Alcohol Use History: None Reported Past Drug Use History: None Reported Medications and Allergies Home Medications Medication Instructions Recorded Confirmed Type allopurinoL [Zyloprim] 200 mg PO HS 10/17/13 05/16/20 History glipiZIDE XL [Glucotrol XL] 10 mg PO DAILY 02/27/19 05/16/20 History Losartan [Cozaar] 50 mg PO DAILY 05/05/20 05/16/20 History Omeprazole 20 mg PO DAILY 05/05/20 05/16/20 History Acetaminophen Tab [Tylenol] 650 mg PO Q6HR PRN tab 05/08/20 05/16/20 Rx Ascorbic Acid [Vitamin C] 1,000 mg PO DAILY #10 tablet 05/08/20 05/16/20 Rx Dexamethasone [Decadron] 6 mg PO DAILY #6 tablet 05/08/20 05/16/20 Rx NIFEdipine XL [Procardia Xl] 30 mg PO DAILY 05/16/20 05/16/20 History Allergies Allergy/AdvReac Type Severity Reaction Status Date / Time Penicillins Allergy Rash/Hives Verified 05/16/20 16:19 Sulfa (Sulfonamide Allergy Rash/Hives Verified 05/16/20 16:19 Antibiotics) morphine AdvReac TURNED Verified 05/16/20 16:19 PURPLE/TROUBLE BREATHING Physical Exam Osteopathic Statement: *. No significant issues noted on an osteopathic structural exam other than those noted in the History and Physical/Consult. Vitals: Vital Signs Temp Pulse Resp BP Pulse Ox 05/16/20 16:17 18 05/16/20 15:07 98.8 F 90 18 143/65 94 L Intake and Output 05/16/20 05/16/20 05/16/20 06:59 14:59 22:59 Other: Weight 74.843 kg General: ill appearing, mild distress due to work of breathing, appears at state d age Derm: warm, dry Head: atraumatic, normocephalic, symmetric Eyes: EOMI right eye, left prostethic eye, no lid lag, anicteric sclera, [place] Mouth: no lip lesion, mucus membranes moist Cardiovascular: S1S2 reg, no murmur, positive posterior tibial pulse bilateral, Lungs: velcro crackles bilateral, + accessory muslce use, no conversational dyspnea Abdominal: soft, nontender to palpation, no guarding, no appreciable organomegaly Ext: no gross muscle atrophy, no edema, no contractures Neuro: CN II-XI grossly intact, no focal neuro deficits Psych: Alert, oriented, appropriate affect Results CBC & Chem 7: 05/16/20 15:04 05/16/20 15:04 Labs: Abnormal Lab Results - Last 24 Hours (Table) 05/16/20 05/16/20 05/16/20 Range/Units 15:04 15:04 15:04 WBC 12.7 H (3.8-10.6) k/uL Neutrophils # 9.4 H (1.3-7.7) k/uL Sodium 131 L (137-145) mmol/L Potassium 2.9 L (3.5-5.1) mmol/L Glucose 257 H (74-99) mg/dL Plasma Lactic Acid Loco 3.1 H* (0.7-2.0) mmol/L Calcium 8.0 L (8.4-10.2) mg/dL Total Protein 5.6 L (6.3-8.2) g/dL Albumin 3.1 L (3.5-5.0) g/dL Chest x-ray: report reviewed, image reviewed (increased interstitial infiltrates) Thrombosis Risk Factor Assmnt - DVT/VTE Prophylaxis DVT/VTE Prophylaxis: Pharmacologic Prophylaxis ordered Assessment and Plan Assessment: COVID19 pneumonitis with acute hypoxic respiratory failure -Tested positive on 05/05 with persistent symptoms on 05/02 - Dexamethasone - Consult Pulm regard Remdesivir - Zinc, Vit C, Vit D, Pepcid, Melatonin - IVF - Follow COVID labs Hyponatremia - due to dehydration - IVF - Repeat in AM Hypokalemia - Replace and recheck in AM Diabetes mellitus type 2 - Hold Oral - SSI - Follow BS Chronic: GERD Hypertension-Continue procardia, cozaar Gout Severe aortic regurgitation The patient is admitted with an anticipated greater than 2 midnight stay for evaluation of COVID 19 pneumonitis . Surrogate decision-maker: Daughter CODE STATUS:Full, no prolonged ventilation DVT prophylaxis: Lovenox Discussed with: Patient, nursing Anticipated discharge date: 4-[address]: home with home health A total of 65 minutes was spent on the care of this complex patient more than 50% of the time was spent in counseling and care coordination.
[2020-05-16] MEDS: ALBUTEROL HFA INHALER INHALATION SCH (19:03)
[2020-05-16 20:11] LABS: Glucose,Whole Blood 255 mg/dL (75-99)
[2020-05-16] MEDS: allopurinoL 100 MG TAB PO SCH (20:55)
[2020-05-17] MEDS: POTASSIUM CHLORIDE 10 MEQ in WATER FOR INJECTION 1 100ML.BAG IVPB SCH ×2 (00:46→02:41)
[2020-05-17] MEDS: ALBUTEROL HFA INHALER INHALATION SCH ×5 (02:17→20:00)
[2020-05-17] MEDS: SODIUM CHLORIDE 0.9% 1,000 ML IV SCH ×2 (05:01→21:19)
[2020-05-17 05:54] LABS: Basophils % (A) 0 %; Eosinophils % (A) 0 %; HCT 32.2 % (34.0-46.0); HGB 10.8 gm/dL (11.4-16.0); Lymphocytes # (A) 1.7 k/uL (1.0-4.8); Lymphocytes % (A) 23 %; MCH 29.6 pg (25.0-35.0); MCHC 33.5 g/dL (31.0-37.0); MCV 88.3 fL (80.0-100.0); Mean Platelet Volume 7.2; Monocytes # (A) 0.2 k/uL (0-1.0); Monocytes % (A) 3 %; Neutrophils # (A) 5.2 k/uL (1.3-7.7); Neutrophils % (A) 72 %; Platelet Count 254 k/uL (150-450); RBC 3.64 m/uL (3.80-5.40); RDW 13.3 % (11.5-15.5); WBC 7.2 k/uL (3.8-10.6)
[2020-05-17 06:58] LABS: Glucose,Whole Blood 265 mg/dL (75-99)
[2020-05-17] MEDS: FAMOTIDINE 20 MG TAB PO SCH (07:49)
[2020-05-17] MEDS: ZINC SULFATE 220 MG CAP PO SCH (07:49)
[2020-05-17] MEDS: ASCORBIC ACID 500 MG TAB PO SCH (07:49)
[2020-05-17] MEDS: NIFEdipine XL 30 MG TAB.ER.24 PO SCH (07:49)
[2020-05-17] MEDS: CHOLECALCIFEROL 1,000 UNIT TAB PO SCH (07:49)
[2020-05-17] MEDS: LOSARTAN 50 MG TAB PO SCH (07:49)
[2020-05-17] MEDS: ENOXAPARIN 40 MG/0.4 ML SYRINGE SQ SCH (07:50)
[2020-05-17] MEDS: INSULIN ASPART (NovoLOG) 100 UNIT/ML VIAL SQ SCH ×4 (08:46→21:11)
[2020-05-17] MEDS ORDERED: DEXAMETHASONE SOD PHOSPHATE 10 MG/ML 1 ML VIAL IV SCH (09:00)
[2020-05-17 09:24] LABS: Albumin 3.4 g/dL (3.80-4.90); Albumin/Globulin Ratio 2.27 (1.60-3.17); Anion Gap 7.4 mmol/L (4.00-12.00); BUN/Creat Ratio 28.33 Ratio (12.00-20.00); C Reactive Protein 10.4 mg/dL (0.0-0.8); Calcium 8.1 mg/dL (8.7-10.3); Carbon Dioxide 30.6 mmol/L (21.6-31.8); Globulin 1.5 g/dL (1.6-3.3); Magnesium 2.1 mg/dL (1.5-2.4); Total Bilirubin 0.6 mg/dL (0.3-1.2); Total Protein 4.9 g/dL (6.2-8.2)
[2020-05-17 11:26] LABS: Glucose,Whole Blood 186 mg/dL (75-99)
[2020-05-17] MEDS: dexAMETHasone 2 MG TAB PO SCH (13:24)
--- NOTE | 2020-05-17 13:37 | P.CNPUL ---
History of Present Illness Consult date: 05/17/20 Requesting physician: Amna Diamond Reason for consult: dyspnea, hypoxemia Chief complaint: Shortness of breath History of present illness: This is an 85-year-old female patient who follows with Dr. Anna as her primary care provider. 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 She was here earlier this month after a syncopal episode at home. She was found to have severe aortic regurgitation. She had incidental finding of CoVID 19 positive on 05/05/2020. No hypoxemia. She presented to the emergency room yesterday with complaints of increasing shortness of breath and this time was found to be hypoxic at 88% on room air. Chest x-ray reveals cardiomegaly with persistent but improving right basilar acute infiltrate. Worsening left peripheral and basilar acute infiltrates consistent with CoVID 19 pneumonitis. We are consulted for the same. She is seen today on the regular medical floor. She is currently resting fairly comfortably in bed. Awake and alert in no acute distress. 18 O2 saturations in the 90s on 4 L/m per nasal cannula. She is quite weak. White count 7.2. Hemoglobin 10.8. D-dimer 1.53. sodium 138. Potassium 4.0. Creatinine 0.6. Glucose 271. C-reactive protein 10.4. She is placed on dexamethasone, Lovenox, vitamin supplements, Pepcid. Review of Systems REVIEW OF SYSTEMS: CONSTITUTIONAL: Denies any recent significant weight loss or weight gain. EYES: Denies change in vision. EARS, NOSE, MOUTH, THROAT: Denies headaches, denies sore throat. CARDIOVASCULAR: Denies chest pain, palpitations or syncopal episodes. RESPIRATORY: Positive for shortness of breath, cough, congestion no hemoptysis. GASTROINTESTINAL: Denies change in appetite, denies abdominal pain GENITOURINARY: Denies hematuria, denies infections. MUSKULOSKELETAL: Denies pain, denies swelling. INTEGUMENTARY: Denies rash, denies eczema. NEUROLOGICAL: Denies recent memory loss, no recent seizure activity. PSYCHIATRIC: Denies anxiety, denies depression. HEMATOLOGIC/LYMPHATIC: Denies anemia, denies enlarged lymph nodes. 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, BLIND LEFT EYE, GOUT, Pneumonia, COVID+ History of Any Multi-Drug Resistant Organisms: None Reported Past Surgical History: Bowel Resection, Cholecystectomy, Hysterectomy, Orthopedic Surgery Additional Past Surgical History / Comment(s): PALMER ROTATOR CUFF, CATARACT SX Past Anesthesia/Blood Transfusion Reactions: No Reported Reaction Past Psychological History: No Psychological Hx Reported Smoking Status: Never smoker Past Alcohol Use History: None Reported Past Drug Use History: None Reported Medications and Allergies Home Medications Medication Instructions Recorded Confirmed Type allopurinoL [Zyloprim] 200 mg PO HS 10/17/13 05/16/20 History glipiZIDE XL [Glucotrol XL] 10 mg PO DAILY 02/27/19 05/16/20 History Losartan [Cozaar] 50 mg PO DAILY 05/05/20 05/16/20 History Omeprazole 20 mg PO DAILY 05/05/20 05/16/20 History Acetaminophen Tab [Tylenol] 650 mg PO Q6HR PRN tab 05/08/20 05/16/20 Rx Ascorbic Acid [Vitamin C] 1,000 mg PO DAILY #10 tablet 05/08/20 05/16/20 Rx Dexamethasone [Decadron] 6 mg PO DAILY #6 tablet 05/08/20 05/16/20 Rx NIFEdipine XL [Procardia Xl] 30 mg PO DAILY 05/16/20 05/16/20 History Allergies Allergy/AdvReac Type Severity Reaction Status Date / Time Penicillins Allergy Rash/Hives Verified 05/16/20 16:19 Sulfa (Sulfonamide Allergy Rash/Hives Verified 05/16/20 16:19 Antibiotics) morphine AdvReac TURNED Verified 05/16/20 16:19 PURPLE/TROUBLE BREATHING Physical Exam Vitals: Vital Signs Temp Pulse Pulse Pulse Resp BP BP 05/17/20 10:20 97.6 F 71 15 164/72 05/17/20 05:20 98.2 F 48 L 14 158/72 05/16/20 20:00 20 05/16/20 18:16 78 24 05/16/20 17:02 97.9 F 78 24 162/77 05/16/20 16:17 18 05/16/20 15:07 98.8 F 90 18 143/65 Pulse Ox 05/17/20 10:20 93 L 05/17/20 05:20 96 05/16/20 20:00 05/16/20 18:16 05/16/20 17:02 97 05/16/20 16:17 05/16/20 15:07 94 L Intake and Output 05/16/20 05/17/20 05/17/20 22:59 06:59 14:59 Intake Total 100 Output Total 1 1 Balance -1 100 -1 Intake: Oral 100 Output: Urine 1 1 Other: Voiding Method Toilet # Voids 1 1 Weight 74.843 kg GENERAL EXAM: Alert, pleasant 85-year-old female patient, on 2 L nasal cannula comfortable in no apparent distress. HEAD: Normocephalic. EYES: Normal reaction of pupils right eye only. NOSE: Clear with pink turbinates. THROAT: No erythema or exudates. NECK: No masses, no JVD. CHEST: No chest wall deformity. LUNGS: Equal air entry with bilateral rhonchi, scattered crackles. CVS: S1 and S2 normal with no audible murmur, regular rhythm. ABDOMEN: No hepatosplenomegaly, normal bowel sounds, no guarding or rigidity. SPINE: No scoliosis or deformity SKIN: No rashes CENTRAL NERVOUS SYSTEM: No focal deficits, tone is normal in all 4 extremities. EXTREMITIES: There is no peripheral edema. No clubbing, no cyanosis. Peripheral pulses are intact. Results - Laboratory Findings CBC and BMP: 05/17/20 05:38 05/17/20 05:38 PT/INR, D-dimer PT 10.1 sec (9.0-12.0) 05/16/20 15:04 INR 1.0 (<1.2) 05/16/20 15:04 D-Dimer 1.53 mg/L FEU (<0.60) H 05/16/20 19:25 Abnormal lab findings: Abnormal Labs 05/16/20 05/16/20 05/16/20 15:04 15:04 15:04 WBC 12.7 H RBC Hgb Hct Neutrophils # 9.4 H D-Dimer Sodium 131 L Potassium 2.9 L BUN/Creatinine Ratio Glucose 257 H POC Glucose (mg/dL) Plasma Lactic Acid Loco 3.1 H* Calcium 8.0 L Creatine Kinase C-Reactive Protein Total Protein 5.6 L Albumin 3.1 L Globulin 05/16/20 05/16/20 05/16/20 18:16 18:16 19:25 WBC RBC Hgb Hct Neutrophils # D-Dimer 1.53 H Sodium Potassium BUN/Creatinine Ratio Glucose POC Glucose (mg/dL) Plasma Lactic Acid Loco Calcium Creatine Kinase 28 L C-Reactive Protein 143.1 H Total Protein Albumin Globulin 05/16/20 05/17/20 05/17/20 20:09 05:38 05:38 WBC RBC 3.64 L Hgb 10.8 L Hct 32.2 L Neutrophils # D-Dimer Sodium Potassium BUN/Creatinine Ratio 28.33 H Glucose 271 H POC Glucose (mg/dL) 255 H Plasma Lactic Acid Loco Calcium 8.1 L Creatine Kinase C-Reactive Protein 10.4 H Total Protein 4.9 L Albumin 3.40 L Globulin 1.5 L 05/17/20 05/17/20 06:56 11:13 WBC RBC Hgb Hct Neutrophils # D-Dimer Sodium Potassium BUN/Creatinine Ratio Glucose POC Glucose (mg/dL) 265 H 186 H Plasma Lactic Acid Loco Calcium Creatine Kinase C-Reactive Protein Total Protein Albumin Globulin - Diagnostic Findings Chest x-ray: image reviewed Assessment and Plan Assessment: 1 Acute hypoxic respiratory failure secondary to CoVID 19 pneumonitis, diagnosed on 05/05/2020. Outside the window for Remdesivir 2 Recent admission for syncopal episode found to have severe aortic regurgitation and CoVID 19 3 Diabetes mellitus, type II 4 History of CVA involving the left eye 5 Hypertension 6 History of gout 7 Gastroesophageal reflux disease 8 Low back pain Plan: The patient was seen and evaluated by Dr. Tyson We'll continue with the current treatment plan Outside the window for Remdesivir Titrate down the FiO2 as tolerated Repeat a chest x-ray in the a.m. We will continue to follow I, the cosigning physician, performed a history & physical examination of the patient. Lungs sounds with bilateral rhonchi, few scattered crackles. Maintaining good O2 saturations in the 90s on 4 L/m per nasal cannula. I discussed the assessment and plan of care with my nurse practitioner, Radha Langley. I attest to the above consultation as dictated by her. Time with Patient: Greater than 30
--- NOTE | 2020-05-17 14:40 | P.PN ---
Subjective Progress Note Date: 05/17/20 (delayed charting seen at 0830) Principal diagnosis: fatigue and shortness of breath Patient is a 85-year-old with diabetes, hypertension, osteoarthritis, and left eye blindness who presented to the emergency department with complaints of shortness of breath. She was recently hospitalized here from 05/05 through 05/08 secondary to syncopal episode and low back pain. During that hospital stay she was also found have COVID 19 pneumonia with acute hypoxemic respiratory failure. She was considered for Remdesivir and convalescent plasma however her oxygenation requirements returned to room air and this was deferred. She did have 1-2 pills left to complete a course of dexamethasone which conitnued on discharge. During that hospital stay they had recommended [facility] facility however patient preferred to go home with family. On arrival to the ER she was found to have an O2 sat of 85% on room air. Laboratory analysis shows sodium 131, potassium 2.9, white blood cell count 12.7, lactic acid 3.1. She was started on IV fluids and given 1 dose of IV Decadron in the ER. Arrangements were made for admission. CXR consistent with COVID. She was continued on Decadron, Zinc, Vit C, VIt D, pepcid, and melatonin. Pulmonary was consulted. Patient seen and examined at bedside. Still very fatigued and short of breath. No chest pain, no nause, no vomiting, no diarrhea. Not hungry at did not want to eat breakfast. General: non toxic, no distress, appears at stated age Derm: warm, dry Head: atraumatic, normocephalic, symmetric Eyes: EOMI right eye, no lid lag, anicteric sclera Mouth: no lip lesion, mucus membranes dry Cardiovascular: S1S2 reg, no murmur, positive posterior tibial pulse bilateral, Lungs: Course bs bilateral , no accessory muscle use Abdominal: soft, nontender to palpation, no guarding, no appreciable organomegaly Ext: no gross muscle atrophy, no edema, no contractures Neuro: CN II-XI grossly intact, no focal neuro deficits Psych: Alert, oriented, appropriate affect COVID19 pneumonitis with acute hypoxic respiratory failure -Tested positive on 05/05 with persistent symptoms on 05/02 - Dexamethasone - Pulm recs apprciated, outside t window for remdesivir - Flu A/B negative, Procalcitonin normal - Zinc, Vit C, Vit D, Pepcid, Melatonin - IVF - Follow COVID labs Hypertension, controlled -Continue procardia, cozaar - follow blood pressure Diabetes mellitus type 2 - Hold Oral - SSI - Follow BS Hyponatremia, resolved Hypokalemia, resolved Chronic: GERD Gout Severe aortic regurgitation Offered to call daughter again today and patient declined. DVT prophylaxis: Lovenox Discussed with: Patient, nursing Anticipated discharge date: 3-[address]: home with home health vs SNF (family okay with SNF per case management ) A total of 25 minutes was spent on the care of this complex patient more than 50% of the time was spent in counseling and care coordination. Objective - Vital Signs Vital signs: Vital Signs Temp 97.6 F 05/17/20 10:20 Pulse 71 05/17/20 10:20 Resp 15 05/17/20 10:20 BP 164/72 05/17/20 10:20 Pulse Ox 93 L 05/17/20 10:20 Intake & Output 05/16/20 05/17/20 05/17/20 18:59 06:59 18:59 Intake Total 100 Output Total 1 1 Balance 99 -1 Weight 74.843 kg Intake: Oral 100 Output: Urine 1 1 Other: Voiding Method Toilet Toilet # Voids 1 1 - Labs CBC & Chem 7: 05/17/20 05:38 05/17/20 05:38 Labs: Abnormal Lab Results - Last 24 Hours (Table) 05/16/20 05/16/20 05/16/20 Range/Units 15:04 15:04 15:04 WBC 12.7 H (3.8-10.6) k/uL RBC (3.80-5.40) m/uL Hgb (11.4-16.0) gm/dL Hct (34.0-46.0) % Neutrophils # 9.4 H (1.3-7.7) k/uL D-Dimer (<0.60) mg/L FEU Sodium 131 L (137-145) mmol/L Potassium 2.9 L (3.5-5.1) mmol/L BUN/Creatinine Ratio (12.00-20.00) Ratio Glucose 257 H (74-99) mg/dL POC Glucose (mg/dL) (75-99) mg/dL Plasma Lactic Acid Loco 3.1 H* (0.7-2.0) mmol/L Calcium 8.0 L (8.4-10.2) mg/dL Creatine Kinase (30-135) U/L C-Reactive Protein (<10.0) mg/L Total Protein 5.6 L (6.3-8.2) g/dL Albumin 3.1 L (3.5-5.0) g/dL Globulin (1.6-3.3) g/dL 05/16/20 05/16/20 05/16/20 Range/Units 18:16 18:16 19:25 WBC (3.8-10.6) k/uL RBC (3.80-5.40) m/uL Hgb (11.4-16.0) gm/dL Hct (34.0-46.0) % Neutrophils # (1.3-7.7) k/uL D-Dimer 1.53 H (<0.60) mg/L FEU Sodium (137-145) mmol/L Potassium (3.5-5.1) mmol/L BUN/Creatinine Ratio (12.00-20.00) Ratio Glucose (74-99) mg/dL POC Glucose (mg/dL) (75-99) mg/dL Plasma Lactic Acid Loco (0.7-2.0) mmol/L Calcium (8.4-10.2) mg/dL Creatine Kinase 28 L (30-135) U/L C-Reactive Protein 143.1 H (<10.0) mg/L Total Protein (6.3-8.2) g/dL Albumin (3.5-5.0) g/dL Globulin (1.6-3.3) g/dL 05/16/20 05/17/20 05/17/20 Range/Units 20:09 05:38 05:38 WBC (3.8-10.6) k/uL RBC 3.64 L (3.80-5.40) m/uL Hgb 10.8 L (11.4-16.0) gm/dL Hct 32.2 L (34.0-46.0) % Neutrophils # (1.3-7.7) k/uL D-Dimer (<0.60) mg/L FEU Sodium (137-145) mmol/L Potassium (3.5-5.1) mmol/L BUN/Creatinine Ratio 28.33 H (12.00-20.00) Ratio Glucose 271 H (74-99) mg/dL POC Glucose (mg/dL) 255 H (75-99) mg/dL Plasma Lactic Acid Loco (0.7-2.0) mmol/L Calcium 8.1 L (8.4-10.2) mg/dL Creatine Kinase (30-135) U/L C-Reactive Protein 10.4 H (<10.0) mg/L Total Protein 4.9 L (6.3-8.2) g/dL Albumin 3.40 L (3.5-5.0) g/dL Globulin 1.5 L (1.6-3.3) g/dL 05/17/20 05/17/20 Range/Units 06:56 11:13 WBC (3.8-10.6) k/uL RBC (3.80-5.40) m/uL Hgb (11.4-16.0) gm/dL Hct (34.0-46.0) % Neutrophils # (1.3-7.7) k/uL D-Dimer (<0.60) mg/L FEU Sodium (137-145) mmol/L Potassium (3.5-5.1) mmol/L BUN/Creatinine Ratio (12.00-20.00) Ratio Glucose (74-99) mg/dL POC Glucose (mg/dL) 265 H 186 H (75-99) mg/dL Plasma Lactic Acid Loco (0.7-2.0) mmol/L Calcium (8.4-10.2) mg/dL Creatine Kinase (30-135) U/L C-Reactive Protein (<10.0) mg/L Total Protein (6.3-8.2) g/dL Albumin (3.5-5.0) g/dL Globulin (1.6-3.3) g/dL
[2020-05-17] MEDS: ACETAMINOPHEN TAB 325 MG TAB PO PRN (16:22)
[2020-05-17 17:25] LABS: Glucose,Whole Blood 189 mg/dL (75-99)
[2020-05-17 20:24] LABS: Glucose,Whole Blood 351 mg/dL (75-99)
[2020-05-17] MEDS: allopurinoL 100 MG TAB PO SCH (21:11)
[2020-05-18 07:27] LABS: Basophils % (A) 0 %; Eosinophils % (A) 0 %; HCT 31.8 % (34.0-46.0); HGB 10.6 gm/dL (11.4-16.0); Lymphocytes # (A) 2.6 k/uL (1.0-4.8); Lymphocytes % (A) 21 %; MCH 29.3 pg (25.0-35.0); MCHC 33.4 g/dL (31.0-37.0); MCV 87.9 fL (80.0-100.0); Monocytes # (A) 0.3 k/uL (0-1.0); Monocytes % (A) 3 %; Neutrophils # (A) 9.1 k/uL (1.3-7.7); Neutrophils % (A) 75 %; Platelet Count 347 k/uL (150-450); RBC 3.61 m/uL (3.80-5.40); RDW 13.3 % (11.5-15.5); WBC 12.1 k/uL (3.8-10.6)
[2020-05-18 07:34] LABS: Glucose,Whole Blood 246 mg/dL (75-99)
--- NOTE | 2020-05-18 07:48 | XR ---
EXAMINATION TYPE: XR chest 1V portable DATE OF EXAM: 05/18/2020 COMPARISON: 05/16/2020 HISTORY: Difficulty breathing TECHNIQUE: Single frontal view of the chest is obtained. FINDINGS: Postsurgical changes involving the shoulders with arthropathy. Diffuse interstitial patter n cardiomegaly. Subsegmental consolidation at the lung bases. No pneumothorax. Diffuse osteopenia not ed. IMPRESSION: 1. Diffuse interstitial pattern with basilar subsegmental consolidation correlate for interstitial an d lobar pneumonia. Otherwise consider CHF.
[2020-05-18] MEDS: INSULIN ASPART (NovoLOG) 100 UNIT/ML VIAL SQ SCH ×4 (07:56→20:59)
[2020-05-18] MEDS: ALBUTEROL HFA INHALER INHALATION SCH ×4 (09:00→20:37)
[2020-05-18] MEDS: SODIUM CHLORIDE 0.9% 1,000 ML IV SCH (10:37)
[2020-05-18] MEDS: ENOXAPARIN 40 MG/0.4 ML SYRINGE SQ SCH (10:37)
[2020-05-18] MEDS: dexAMETHasone 2 MG TAB PO SCH (10:38)
[2020-05-18] MEDS: ASCORBIC ACID 500 MG TAB PO SCH (10:38)
[2020-05-18] MEDS: FAMOTIDINE 20 MG TAB PO SCH (10:38)
[2020-05-18] MEDS: NIFEdipine XL 30 MG TAB.ER.24 PO SCH (10:38)
[2020-05-18] MEDS: LOSARTAN 50 MG TAB PO SCH (10:38)
[2020-05-18] MEDS: CHOLECALCIFEROL 1,000 UNIT TAB PO SCH (10:38)
[2020-05-18 11:26] LABS: Glucose,Whole Blood 329 mg/dL (75-99)
[2020-05-18] MEDS: ZINC SULFATE 220 MG CAP PO SCH (12:11)
--- NOTE | 2020-05-18 12:21 | P.PN ---
Subjective Progress Note Date: 05/18/20 Principal diagnosis: CoVID 19 pneumonitis This is an 85-year-old female patient who follows with Dr. Anna as her primary care provider. 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 She was here earlier this month after a syncopal episode at home. She was found to have severe aortic regurgitation. She had incidental finding of CoVID 19 positive on 05/05/2020. No hypoxemia. She presented to the emergency room yesterday with complaints of increasing shortness of breath and this time was found to be hypoxic at 88% on room air. Chest x-ray reveals cardiomegaly with persistent but improving right basilar acute infiltrate. Worsening left peripheral and basilar acute infiltrates consistent with CoVID 19 pneumonitis. We are consulted for the same. She is seen today on the regular medical floor. She is currently resting fairly comfortably in bed. Awake and alert in no acute distress. 18 O2 saturations in the 90s on 4 L/m per nasal cannula. She is quite weak. White count 7.2. Hemoglobin 10.8. D-dimer 1.53. sodium 138. Potassium 4.0. Creatinine 0.6. Glucose 271. C-reactive protein 10.4. She is placed on dexamethasone, Lovenox, vitamin supplements, Pepcid. Patient is seen today 05/18/2020 in follow-up on the regular medical floor. She is awake and alert in no acute distress. She continues to require 6 L high flow nasal cannula to maintain O2 saturations in the mid 90s. Chest x-ray reveals diffuse interstitial pattern with his present segmental consolidation. White count 12.1. Hemoglobin 10.6. D-dimer 1.54. ProBNP 829. Troponin negative. She was outside the window for Remdesivir. She remains on Lovenox, dexamethasone, vitamin supplements Pepcid, melatonin. Objective - Vital Signs Vital signs: Vital Signs Temp 97.9 F 05/18/20 05:01 Pulse 61 05/18/20 05:01 Resp 18 05/18/20 05:01 BP 154/53 05/18/20 05:01 Pulse Ox 98 05/18/20 05:01 Intake & Output 05/17/20 05/18/20 05/18/20 18:59 06:59 18:59 Intake Total 1800 150 Output Total 1 Balance 1799 150 Intake: Oral 1800 150 Output: Urine 1 Other: Voiding Method Toilet Toilet Toilet # Voids 4 2 - Exam GENERAL EXAM: Alert, pleasant 85-year-old female patient, on 6 L nasal cannula comfortable in no apparent distress. HEAD: Normocephalic. EYES: Normal reaction of pupils right eye only. NOSE: Clear with pink turbinates. THROAT: No erythema or exudates. NECK: No masses, no JVD. CHEST: No chest wall deformity. LUNGS: Equal air entry with bilateral rhonchi, scattered crackles. CVS: S1 and S2 normal with no audible murmur, regular rhythm. ABDOMEN: No hepatosplenomegaly, normal bowel sounds, no guarding or rigidity. SPINE: No scoliosis or deformity SKIN: No rashes CENTRAL NERVOUS SYSTEM: No focal deficits, tone is normal in all 4 extremities. EXTREMITIES: There is no peripheral edema. No clubbing, no cyanosis. Peripheral pulses are intact. - Labs CBC & Chem 7: 05/18/20 06:39 05/17/20 05:38 Labs: Abnormal Lab Results - Last 24 Hours (Table) 05/17/20 05/17/20 05/18/20 Range/Units 17:16 20:17 06:39 WBC 12.1 H (3.8-10.6) k/uL RBC 3.61 L (3.80-5.40) m/uL Hgb 10.6 L (11.4-16.0) gm/dL Hct 31.8 L (34.0-46.0) % Neutrophils # 9.1 H (1.3-7.7) k/uL D-Dimer (<0.60) mg/L FEU POC Glucose (mg/dL) 189 H 351 H (75-99) mg/dL 05/18/20 05/18/20 05/18/20 Range/Units 06:39 07:33 11:25 WBC (3.8-10.6) k/uL RBC (3.80-5.40) m/uL Hgb (11.4-16.0) gm/dL Hct (34.0-46.0) % Neutrophils # (1.3-7.7) k/uL D-Dimer 1.54 H (<0.60) mg/L FEU POC Glucose (mg/dL) 246 H 329 H (75-99) mg/dL Assessment and Plan Assessment: 1 Acute hypoxic respiratory failure secondary to CoVID 19 pneumonitis, diagnosed on 05/05/2020. Outside the window for Remdesivir 2 Recent admission for syncopal episode found to have severe aortic regurgitation and CoVID 19 3 Diabetes mellitus, type II 4 History of CVA involving the left eye 5 Hypertension 6 History of gout 7 Gastroesophageal reflux disease 8 Low back pain Plan: The patient was seen and evaluated by Dr. Tyson We'll continue with the current treatment plan Titrate down the FiO2 as tolerated We will continue to follow I, the cosigning physician, performed a history & physical examination of the patient. Lungs sounds with bilateral rhonchi, few scattered crackles. Maintaining good O2 saturations in the 90s on 6 L/m per nasal cannula. I discussed the assessment and plan of care with my nurse practitioner, Radha Langley. I attest to the above note as dictated by her.
--- NOTE | 2020-05-18 13:14 | P.PN ---
Subjective Progress Note Date: 05/18/20 Patient reports that her shortness of breath is about the same compared to yesterday. She denies any cough. She is still on 6 L of oxygen. Objective - Vital Signs Vital signs: Vital Signs Temp 97.7 F 05/18/20 11:00 Pulse 71 05/18/20 11:00 Resp 20 05/18/20 11:00 BP 148/58 05/18/20 11:00 Pulse Ox 97 05/18/20 11:00 Intake & Output 05/17/20 05/18/20 05/18/20 18:59 06:59 18:59 Intake Total 1800 150 Output Total 1 Balance 1799 150 Intake: Oral 1800 150 Output: Urine 1 Other: Voiding Method Toilet Toilet Toilet # Voids 4 2 - Exam General: The patient is awake and alert, in no distress Eye: there is normal conjunctiva bilaterally. Neck: The neck is supple, there is no JVD. Cardiovascular: Normal S1-S2, no S3-S4, no murmurs. Respiratory: Lungs with scattered rhonchi Gastrointestinal: Abdomen is soft, nontender Musculoskeletal: There is no pedal edema. Neurological:. Speech is normal. Skin: Skin is warm and dry - Labs CBC & Chem 7: 05/18/20 06:39 05/17/20 05:38 Labs: Abnormal Lab Results - Last 24 Hours (Table) 05/17/20 05/17/20 05/18/20 Range/Units 17:16 20:17 06:39 WBC 12.1 H (3.8-10.6) k/uL RBC 3.61 L (3.80-5.40) m/uL Hgb 10.6 L (11.4-16.0) gm/dL Hct 31.8 L (34.0-46.0) % Neutrophils # 9.1 H (1.3-7.7) k/uL D-Dimer (<0.60) mg/L FEU POC Glucose (mg/dL) 189 H 351 H (75-99) mg/dL 05/18/20 05/18/20 05/18/20 Range/Units 06:39 07:33 11:25 WBC (3.8-10.6) k/uL RBC (3.80-5.40) m/uL Hgb (11.4-16.0) gm/dL Hct (34.0-46.0) % Neutrophils # (1.3-7.7) k/uL D-Dimer 1.54 H (<0.60) mg/L FEU POC Glucose (mg/dL) 246 H 329 H (75-99) mg/dL Assessment and Plan Assessment: Patient is a 85-year-old with diabetes, hypertension, osteoarthritis, and left eye blindness who presented to the emergency department with complaints of shortness of breath. She was recently hospitalized here from 05/05 through 05/08 secondary to syncopal episode and low back pain. During that hospital stay she was also found have COVID 19 pneumonia with acute hypoxemic respiratory failure. She was considered for Remdesivir and convalescent plasma however her oxygenation requirements returned to room air and this was deferred. During that hospital stay they had recommended detention facility however patient preferred to go home with family. On arrival to the ER she was found to have an O2 sat of 85% on room air. CXR consistent with COVID. She was continued on Decadron, Zinc, Vit C, VIt D, pepcid, and melatonin. Pulmonary was consulted. COVID19 pneumonitis with acute hypoxic respiratory failure -Tested positive on 05/05 with persistent symptoms on 05/02 - Dexamethasone day #2 - Pulm recs apprciated, outside window for remdesivir - Flu A/B negative, Procalcitonin normal - Zinc, Vit C, Vit D, Pepcid, Melatonin - Follow COVID labs Hypertension, controlled -Continue procardia, cozaar Diabetes mellitus type 2 - Hold Oral - SSI Hyponatremia, resolved Hypokalemia, resolved Chronic: GERD Gout Severe aortic regurgitation DVT prophylaxis: Lovenox Discussed with: Patient, nursing Anticipated discharge date: 3-[address]: home with home health vs SNF (family okay with SNF per case management ) A total of 25 minutes was spent on the care of this complex patient more than 50% of the time was spent in counseling and care coordination.
[2020-05-18 13:15] LABS: Ferritin 276.1 ng/mL (10.0-291.0)
[2020-05-18 17:25] LABS: Glucose,Whole Blood 277 mg/dL (75-99)
[2020-05-18 19:04] LABS: Albumin 3.4 g/dL (3.80-4.90); Anion Gap 5.6 mmol/L (4.00-12.00); BUN/Creat Ratio 36.67 Ratio (12.00-20.00); C Reactive Protein 4.3 mg/dL (0.0-0.8); Calcium 8.6 mg/dL (8.7-10.3); Carbon Dioxide 30.4 mmol/L (21.6-31.8); Globulin 1.7 g/dL (1.6-3.3); Magnesium 2.1 mg/dL (1.5-2.4); Potassium 4.1 mmol/L (3.5-5.5); Total Bilirubin 0.6 mg/dL (0.3-1.2); Total Protein 5.1 g/dL (6.2-8.2)
[2020-05-18 20:31] LABS: Glucose,Whole Blood 355 mg/dL (75-99)
[2020-05-18] MEDS: allopurinoL 100 MG TAB PO SCH (20:58)
[2020-05-18] MEDS: ACETAMINOPHEN TAB 325 MG TAB PO PRN (22:53)
[2020-05-19 07:10] LABS: Glucose,Whole Blood 144 mg/dL (75-99)
[2020-05-19] MEDS: INSULIN ASPART (NovoLOG) 100 UNIT/ML VIAL SQ SCH ×4 (07:54→20:57)
[2020-05-19] MEDS: INSULIN DETEMIR (LEVEMIR) 100 UNIT/ML SYR SQ SCH (07:54)
[2020-05-19] MEDS: ENOXAPARIN 40 MG/0.4 ML SYRINGE SQ SCH (07:54)
[2020-05-19] MEDS: NIFEdipine XL 30 MG TAB.ER.24 PO SCH (07:55)
[2020-05-19] MEDS: ZINC SULFATE 220 MG CAP PO SCH (07:55)
[2020-05-19] MEDS: LOSARTAN 50 MG TAB PO SCH (07:55)
[2020-05-19] MEDS: CHOLECALCIFEROL 1,000 UNIT TAB PO SCH (07:55)
[2020-05-19] MEDS: dexAMETHasone 2 MG TAB PO SCH (07:55)
[2020-05-19] MEDS: ASCORBIC ACID 500 MG TAB PO SCH (07:55)
[2020-05-19] MEDS: FAMOTIDINE 20 MG TAB PO SCH (07:55)
[2020-05-19] MEDS: ALBUTEROL HFA INHALER INHALATION SCH ×4 (08:18→20:35)
[2020-05-19 09:15] LABS: Basophils % (A) 0 %; Eosinophils # (A) 0.1 k/uL (0-0.7); Eosinophils % (A) 1 %; HCT 33.6 % (34.0-46.0); HGB 10.9 gm/dL (11.4-16.0); Lymphocytes # (A) 4.6 k/uL (1.0-4.8); Lymphocytes % (A) 24 %; MCH 28.8 pg (25.0-35.0); MCHC 32.5 g/dL (31.0-37.0); MCV 88.6 fL (80.0-100.0); Mean Platelet Volume 7.1; Monocytes # (A) 0.5 k/uL (0-1.0); Monocytes % (A) 3 %; Neutrophils # (A) 13.5 k/uL (1.3-7.7); Neutrophils % (A) 71 %; Platelet Count 483 k/uL (150-450); RBC 3.79 m/uL (3.80-5.40); RDW 13.6 % (11.5-15.5); WBC 18.9 k/uL (3.8-10.6)
[2020-05-19 11:10] LABS: Glucose,Whole Blood 213 mg/dL (75-99)
--- NOTE | 2020-05-19 11:59 | P.PN ---
Subjective Progress Note Date: 05/19/20 Patient is feeling better today. She denies any shortness of breath. She was on 5 L of oxygen at the time of my evaluation and I was able to wean her down to 3. Objective - Vital Signs Vital signs: Vital Signs Temp 98.1 F 05/19/20 11:00 Pulse 61 05/19/20 11:00 Resp 17 05/19/20 11:00 BP 159/64 05/19/20 11:00 Pulse Ox 95 05/19/20 11:00 Intake & Output 05/18/20 05/19/20 05/19/20 18:59 06:59 18:59 Intake Total 125 Output Total 1 Balance 124 Intake: Oral 125 Output: Urine 1 Other: Voiding Method Toilet Toilet Toilet # Voids 3 1 - Exam General: The patient is awake and alert, in no distress Eye: there is normal conjunctiva bilaterally. Neck: The neck is supple, there is no JVD. Cardiovascular: Normal S1-S2, no S3-S4, no murmurs. Respiratory: Lungs with scattered rhonchi Gastrointestinal: Abdomen is soft, nontender Musculoskeletal: There is no pedal edema. Neurological:. Speech is normal. Skin: Skin is warm and dry - Labs CBC & Chem 7: 05/19/20 08:33 05/18/20 06:39 Labs: Abnormal Lab Results - Last 24 Hours (Table) 05/18/20 05/18/20 05/18/20 Range/Units 06:39 17:23 20:30 WBC (3.8-10.6) k/uL RBC (3.80-5.40) m/uL Hgb (11.4-16.0) gm/dL Hct (34.0-46.0) % Plt Count (150-450) k/uL Neutrophils # (1.3-7.7) k/uL BUN/Creatinine Ratio 36.67 H (12.00-20.00) Ratio Glucose 242 H (70-110) mg/dL POC Glucose (mg/dL) 277 H 355 H (75-99) mg/dL Calcium 8.6 L (8.7-10.3) mg/dL Lactate Dehydrogenase 372 H (120-246) U/L C-Reactive Protein 4.3 H (0.0-0.8) mg/dL Total Protein 5.1 L (6.2-8.2) g/dL Albumin 3.40 L (3.80-4.90) g/dL 05/19/20 05/19/20 05/19/20 Range/Units 07:08 08:33 11:09 WBC 18.9 H (3.8-10.6) k/uL RBC 3.79 L (3.80-5.40) m/uL Hgb 10.9 L (11.4-16.0) gm/dL Hct 33.6 L (34.0-46.0) % Plt Count 483 H (150-450) k/uL Neutrophils # 13.5 H (1.3-7.7) k/uL BUN/Creatinine Ratio (12.00-20.00) Ratio Glucose (70-110) mg/dL POC Glucose (mg/dL) 144 H 213 H (75-99) mg/dL Calcium (8.7-10.3) mg/dL Lactate Dehydrogenase (120-246) U/L C-Reactive Protein (0.0-0.8) mg/dL Total Protein (6.2-8.2) g/dL Albumin (3.80-4.90) g/dL Assessment and Plan Assessment: Patient is a 85-year-old with diabetes, hypertension, osteoarthritis, and left eye blindness who presented to the emergency department with complaints of shortness of breath. She was recently hospitalized here from 05/05 through 05/08 secondary to syncopal episode and low back pain. During that hospital stay she was also found have COVID 19 pneumonia with acute hypoxemic respiratory failure. She was considered for Remdesivir and convalescent plasma however her oxygenation requirements returned to room air and this was deferred. During that hospital stay they had recommended custodial facility however patient preferred to go home with family. On arrival to the ER she was found to have an O2 sat of 85% on room air. CXR consistent with COVID. She was continued on Decadron, Zinc, Vit C, VIt D, pepcid, and melatonin. Pulmonary was consulted. COVID19 pneumonitis with acute hypoxic respiratory failure -Tested positive on 05/05 with persistent symptoms on 05/02 - Dexamethasone day #3 - Pulm recs apprciated, outside window for remdesivir - Flu A/B negative, Procalcitonin normal - Zinc, Vit C, Vit D, Pepcid, Melatonin - Follow COVID labs Hypertension, controlled -Continue procardia, cozaar Diabetes mellitus type 2 with steroid-induced hyperglycemia - Hold Oral - SSI - Levemir 10 units daily Hyponatremia, resolved Hypokalemia, resolved Chronic: GERD Gout Severe aortic regurgitation DVT prophylaxis: Lovenox Discussed with: Patient, nursing Anticipated discharge date: Possibly within the next day or [address]: home with home health vs SNF (family okay with SNF per case management ) A total of 25 minutes was spent on the care of this complex patient more than 50% of the time was spent in counseling and care coordination.
[2020-05-19 12:12] LABS: Albumin 3.5 g/dL (3.80-4.90); Albumin/Globulin Ratio 2.06 (1.60-3.17); Anion Gap 7.5 mmol/L (4.00-12.00); BUN/Creat Ratio 36.67 Ratio (12.00-20.00); Calcium 8.8 mg/dL (8.7-10.3); Carbon Dioxide 30.5 mmol/L (21.6-31.8); Globulin 1.7 g/dL (1.6-3.3); Potassium 3.9 mmol/L (3.5-5.5); Total Bilirubin 0.7 mg/dL (0.3-1.2); Total Protein 5.2 g/dL (6.2-8.2)
--- NOTE | 2020-05-19 14:05 | P.PN ---
Subjective Progress Note Date: 05/19/20 Principal diagnosis: CoVID 19 pneumonitis This is an 85-year-old female patient who follows with Dr. Anna as her primary care provider. 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 She was here earlier this month after a syncopal episode at home. She was found to have severe aortic regurgitation. She had incidental finding of CoVID 19 positive on 05/05/2020. No hypoxemia. She presented to the emergency room yesterday with complaints of increasing shortness of breath and this time was found to be hypoxic at 88% on room air. Chest x-ray reveals cardiomegaly with persistent but improving right basilar acute infiltrate. Worsening left peripheral and basilar acute infiltrates consistent with CoVID 19 pneumonitis. We are consulted for the same. She is seen today on the regular medical floor. She is currently resting fairly comfortably in bed. Awake and alert in no acute distress. 18 O2 saturations in the 90s on 4 L/m per nasal cannula. She is quite weak. White count 7.2. Hemoglobin 10.8. D-dimer 1.53. sodium 138. Potassium 4.0. Creatinine 0.6. Glucose 271. C-reactive protein 10.4. She is placed on dexamethasone, Lovenox, vitamin supplements, Pepcid. Patient is seen today 05/18/2020 in follow-up on the regular medical floor. She is awake and alert in no acute distress. She continues to require 6 L high flow nasal cannula to maintain O2 saturations in the mid 90s. Chest x-ray reveals diffuse interstitial pattern with his present segmental consolidation. White count 12.1. Hemoglobin 10.6. D-dimer 1.54. ProBNP 829. Troponin negative. She was outside the window for Remdesivir. She remains on Lovenox, dexamethasone, vitamin supplements Pepcid, melatonin. The patient is seen today 05/19/2020 in follow-up on the regular medical floor. She is awake and alert in no acute distress. No worsening shortness of breath, cough or congestion. She remains on 5 L high flow nasal cannula to maintain O2 saturation in the 90s. She did test positive for the CoVID 19 on 05/05/2020. White count 18.9. Hemoglobin 10.9. Sodium 141. Potassium 3.9. Creatinine 0.6. She remains on Lovenox, dexamethasone, vitamin supplements Pepcid, melatonin. Objective - Vital Signs Vital signs: Vital Signs Temp 98.1 F 05/19/20 11:00 Pulse 61 05/19/20 11:00 Resp 17 05/19/20 11:00 BP 159/64 05/19/20 11:00 Pulse Ox 95 05/19/20 11:00 Intake & Output 05/18/20 05/19/20 05/19/20 18:59 06:59 18:59 Intake Total 125 Output Total 1 Balance 124 Intake: Oral 125 Output: Urine 1 Other: Voiding Method Toilet Toilet Toilet # Voids 3 1 - Exam GENERAL EXAM: Alert, pleasant 85-year-old female patient, on 5 L nasal cannula comfortable in no apparent distress. HEAD: Normocephalic. EYES: Normal reaction of pupils right eye only. NOSE: Clear with pink turbinates. THROAT: No erythema or exudates. NECK: No masses, no JVD. CHEST: No chest wall deformity. LUNGS: Equal air entry with bilateral rhonchi, scattered crackles. CVS: S1 and S2 normal with no audible murmur, regular rhythm. ABDOMEN: No hepatosplenomegaly, normal bowel sounds, no guarding or rigidity. SPINE: No scoliosis or deformity SKIN: No rashes CENTRAL NERVOUS SYSTEM: No focal deficits, tone is normal in all 4 extremities. EXTREMITIES: There is no peripheral edema. No clubbing, no cyanosis. Periphera l pulses are intact. - Labs CBC & Chem 7: 05/19/20 08:33 05/19/20 08:33 Labs: Abnormal Lab Results - Last 24 Hours (Table) 05/18/20 05/18/20 05/18/20 Range/Units 06:39 17:23 20:30 WBC (3.8-10.6) k/uL RBC (3.80-5.40) m/uL Hgb (11.4-16.0) gm/dL Hct (34.0-46.0) % Plt Count (150-450) k/uL Neutrophils # (1.3-7.7) k/uL BUN/Creatinine Ratio 36.67 H (12.00-20.00) Ratio Glucose 242 H (70-110) mg/dL POC Glucose (mg/dL) 277 H 355 H (75-99) mg/dL Calcium 8.6 L (8.7-10.3) mg/dL Lactate Dehydrogenase 372 H (120-246) U/L C-Reactive Protein 4.3 H (0.0-0.8) mg/dL Total Protein 5.1 L (6.2-8.2) g/dL Albumin 3.40 L (3.80-4.90) g/dL 05/19/20 05/19/20 05/19/20 Range/Units 07:08 08:33 08:33 WBC 18.9 H (3.8-10.6) k/uL RBC 3.79 L (3.80-5.40) m/uL Hgb 10.9 L (11.4-16.0) gm/dL Hct 33.6 L (34.0-46.0) % Plt Count 483 H (150-450) k/uL Neutrophils # 13.5 H (1.3-7.7) k/uL BUN/Creatinine Ratio 36.67 H (12.00-20.00) Ratio Glucose 123 H (70-110) mg/dL POC Glucose (mg/dL) 144 H (75-99) mg/dL Calcium (8.7-10.3) mg/dL Lactate Dehydrogenase (120-246) U/L C-Reactive Protein 2.0 H (0.0-0.8) mg/dL Total Protein 5.2 L (6.2-8.2) g/dL Albumin 3.50 L (3.80-4.90) g/dL 05/19/20 Range/Units 11:09 WBC (3.8-10.6) k/uL RBC (3.80-5.40) m/uL Hgb (11.4-16.0) gm/dL Hct (34.0-46.0) % Plt Count (150-450) k/uL Neutrophils # (1.3-7.7) k/uL BUN/Creatinine Ratio (12.00-20.00) Ratio Glucose (70-110) mg/dL POC Glucose (mg/dL) 213 H (75-99) mg/dL Calcium (8.7-10.3) mg/dL Lactate Dehydrogenase (120-246) U/L C-Reactive Protein (0.0-0.8) mg/dL Total Protein (6.2-8.2) g/dL Albumin (3.80-4.90) g/dL Assessment and Plan Assessment: 1 Acute hypoxic respiratory failure secondary to CoVID 19 pneumonitis, diagnosed on 05/05/2020. Outside the window for Remdesivir 2 Recent admission for syncopal episode found to have severe aortic re gurgitation and CoVID 19 3 Diabetes mellitus, type II 4 History of CVA involving the left eye 5 Hypertension 6 History of gout 7 Gastroesophageal reflux disease 8 Low back pain Plan: The patient was seen and evaluated by Dr. Tyson We'll continue with the current treatment plan Titrate down the FiO2 as tolerated Repeat a chest x-ray in the a.m. We will continue to follow I, the cosigning physician, performed a history & physical examination of the patient. Lungs sounds with bilateral rhonchi, few scattered crackles. Maintaining good O2 saturations in the 90s on 5 L/m per nasal cannula. I discussed the assessment and plan of care with my nurse practitioner, Radha rivero. I attest to the above note as dictated by her.
[2020-05-19 17:09] LABS: Glucose,Whole Blood 321 mg/dL (75-99)
[2020-05-19 20:30] LABS: Glucose,Whole Blood 298 mg/dL (75-99)
[2020-05-19] MEDS: ACETAMINOPHEN TAB 325 MG TAB PO PRN (20:56)
[2020-05-19] MEDS: allopurinoL 100 MG TAB PO SCH (20:57)
[2020-05-20] MEDS: ACETAMINOPHEN TAB 325 MG TAB PO PRN (02:52)
[2020-05-20 07:09] LABS: Glucose,Whole Blood 102 mg/dL (75-99)
--- NOTE | 2020-05-20 07:14 | XR ---
EXAMINATION TYPE: XR chest 1V DATE OF EXAM: 05/20/2020 HISTORY: Shortness of breath. COMPARISON: 05/18/2020 TECHNIQUE: Single view of the chest is submitted. FINDINGS: Demonstrated are scattered senescent parenchymal change. Patchy perihilar and basilar infiltrates persist. No significant change appreciated. The heart is stable. Hilar and mediastinal structures are within normal limits. Degenerative changes are seen of the dorsal spine. IMPRESSION: 1. Patchy perihilar and basilar infiltrates persist. No significant change appreciated.
[2020-05-20] MEDS: INSULIN ASPART (NovoLOG) 100 UNIT/ML VIAL SQ SCH ×4 (07:25→21:46)
[2020-05-20] MEDS: CHOLECALCIFEROL 1,000 UNIT TAB PO SCH (08:35)
[2020-05-20] MEDS: ASCORBIC ACID 500 MG TAB PO SCH (08:35)
[2020-05-20] MEDS: ENOXAPARIN 40 MG/0.4 ML SYRINGE SQ SCH (08:35)
[2020-05-20] MEDS: INSULIN DETEMIR (LEVEMIR) 100 UNIT/ML SYR SQ SCH (08:35)
[2020-05-20] MEDS: ZINC SULFATE 220 MG CAP PO SCH (08:35)
[2020-05-20] MEDS: FAMOTIDINE 20 MG TAB PO SCH (08:35)
[2020-05-20] MEDS: dexAMETHasone 2 MG TAB PO SCH (08:35)
[2020-05-20] MEDS: NIFEdipine XL 30 MG TAB.ER.24 PO SCH (08:35)
[2020-05-20] MEDS: LOSARTAN 50 MG TAB PO SCH (08:36)
[2020-05-20] MEDS: ALBUTEROL HFA INHALER INHALATION SCH ×4 (09:20→20:33)
[2020-05-20 11:35] LABS: Glucose,Whole Blood 167 mg/dL (75-99)
--- NOTE | 2020-05-20 13:28 | P.PN ---
Subjective Progress Note Date: 05/20/20 P patient is doing well today. No acute events overnight reported to me by nursing staff. Objective - Vital Signs Vital signs: Vital Signs Temp 97.6 F 05/20/20 10:28 Pulse 78 05/20/20 10:28 Resp 20 05/20/20 10:28 BP 162/75 05/20/20 10:28 Pulse Ox 93 L 05/20/20 10:28 Intake & Output 05/19/20 05/20/20 05/20/20 18:59 06:59 18:59 Intake Total 150 200 Output Total 1 Balance 150 199 Intake: Oral 150 200 Output: Urine 1 Other: Voiding Method Toilet Toilet Toilet # Voids 3 3 1 - Exam General: The patient is awake and alert, in no distress Eye: there is normal conjunctiva bilaterally. Neck: The neck is supple, there is no JVD. Cardiovascular: Normal S1-S2, no S3-S4, no murmurs. Respiratory: Lungs with scattered rhonchi Gastrointestinal: Abdomen is soft, nontender Musculoskeletal: There is no pedal edema. Neurological:. Speech is normal. Skin: Skin is warm and dry - Labs CBC & Chem 7: 05/19/20 08:33 05/19/20 08:33 Labs: Abnormal Lab Results - Last 24 Hours (Table) 05/19/20 05/19/20 05/20/20 Range/Units 16:54 20:28 05:58 D-Dimer 1.48 H (<0.60) mg/L FEU POC Glucose (mg/dL) 321 H 298 H (75-99) mg/dL Lactate Dehydrogenase (120-246) U/L 05/20/20 05/20/20 05/20/20 Range/Units 05:58 07:02 11:27 D-Dimer (<0.60) mg/L FEU POC Glucose (mg/dL) 102 H 167 H (75-99) mg/dL Lactate Dehydrogenase 370 H (120-246) U/L Assessment and Plan Assessment: Patient is a 85-year-old with diabetes, hypertension, osteoarthritis, and left eye blindness who presented to the emergency department with complaints of shortness of breath. She was recently hospitalized here from 05/05 through 05/08 secondary to syncopal episode and low back pain. During that hospital stay she was also found have COVID 19 pneumonia with acute hypoxemic respiratory failure. She was considered for Remdesivir and convalescent plasma however her oxygenation requirements returned to room air and this was deferred. During that hospital stay they had recommended senior care facility however patient preferred to go home with family. On arrival to the ER she was found to have an O2 sat of 85% on room air. CXR consistent with COVID. She was continued on Decadron, Zinc, Vit C, VIt D, pepcid, and melatonin. Pulmonary was consulted. COVID19 pneumonitis with acute hypoxic respiratory failure -Tested positive on 05/05 with persistent symptoms on 05/02 - Dexamethasone day #4 - Pulm recs apprciated, outside window for remdesivir - Flu A/B negative, Procalcitonin normal - Zinc, Vit C, Vit D, Pepcid, Melatonin - Follow COVID labs Hypertension, controlled -Continue procardia, cozaar Diabetes mellitus type 2 with steroid-induced hyperglycemia - Hold Oral - SSI - Levemir 10 units daily Hyponatremia, resolved Hypokalemia, resolved Chronic: GERD Gout Severe aortic regurgitation DVT prophylaxis: Lovenox Discussed with: Patient, nursing Anticipated discharge date: On Wednesday as her daughter is unable to take care of her until then Anticipated discharge place: home with home health A total of 25 minutes was spent on the care of this complex patient more than 50% of the time was spent in counseling and care coordination.
--- NOTE | 2020-05-20 13:55 | P.PN ---
Subjective Progress Note Date: 05/20/20 Principal diagnosis: Acute hypoxic respiratory failure secondary to Covid 19 pneumonitis. This is an 85-year-old female patient who follows with Dr. Anna as her primary care provider. 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 She was here earlier this month after a syncopal episode at home. She was found to have severe aortic regurgitation. She had incidental finding of CoVID 19 positive on 05/05/2020. No hypoxemia. She presented to the emergency room yesterday with complaints of increasing shortness of breath and this time was found to be hypoxic at 88% on room air. Chest x-ray reveals cardiomegaly with persistent but improving right basilar acute infiltrate. Worsening left peripheral and basilar acute infiltrates consistent with CoVID 19 pneumonitis. We are consulted for the same. She is seen today on the regular medical floor. She is currently resting fairly comfortably in bed. Awake and alert in no acute distress. 18 O2 saturations in the 90s on 4 L/m per nasal cannula. She is quite weak. White count 7.2. Hemoglobin 10.8. D-dimer 1.53. sodium 138. Potassium 4.0. Creatinine 0.6. Glucose 271. C-reactive protein 10.4. She is placed on dexamethasone, Lovenox, vitamin supplements, Pepcid. Patient is seen today 05/18/2020 in follow-up on the regular medical floor. She is awake and alert in no acute distress. She continues to require 6 L high flow nasal cannula to maintain O2 saturations in the mid 90s. Chest x-ray reveals diffuse interstitial pattern with his present segmental consolidation. White count 12.1. Hemoglobin 10.6. D-dimer 1.54. ProBNP 829. Troponin negative. She was outside the window for Remdesivir. She remains on Lovenox, dexamethasone, vitamin supplements Pepcid, melatonin. The patient is seen today 05/19/2020 in follow-up on the regular medical floor. She is awake and alert in no acute distress. No worsening shortness of breath, cough or congestion. She remains on 5 L high flow nasal cannula to maintain O2 saturation in the 90s. She did test positive for the CoVID 19 on 05/05/2020. White count 18.9. Hemoglobin 10.9. Sodium 141. Potassium 3.9. Creatinine 0.6. She remains on Lovenox, dexamethasone, vitamin supplements Pepcid, melatonin. Reevaluated today on 05/20/20, patient remains on the regular medical floor, she seems to be doing quite well. Her O2 has been titrated down to 2 L nasal cannula, and her O2 saturation is 93%. Chest x-ray continues to show patchy p erihilar and basilar infiltrates bilaterally, patient is noted to have leukocytosis today with WBC count of 18.9 hemoglobin is 10.9, and left was are normal renal profile is normal. Pro-calcitonin level is low at 0.08. LDH is 370. C-reactive protein is 2, BNP level is a bit elevated at 1310. Patient feels generally weak and tired, occasional cough, no wheezing, denies being short of breath Objective - Vital Signs Vital signs: Vital Signs Temp 97.6 F 05/20/20 10:28 Pulse 78 05/20/20 10:28 Resp 20 05/20/20 10:28 BP 162/75 05/20/20 10:28 Pulse Ox 93 L 05/20/20 10:28 Intake & Output 05/19/20 05/20/20 05/20/20 18:59 06:59 18:59 Intake Total 150 200 Output Total 1 Balance 150 199 Intake: Oral 150 200 Output: Urine 1 Other: Voiding Method Toilet Toilet Toilet # Voids 3 3 1 - Exam GENERAL EXAM: Alert, pleasant 85-year-old female patient, on 2 L nasal cannula, in no distress. HEAD: Normocephalic. ENT: Evidence of left eye injury, chronic. Right pupil is reactive to light. No neck masses, no JVD, no stridor, moist mucous membranes. CHEST: No chest wall deformity. LUNGS: Symmetrical expansion, crackles at the bases bilaterally. CVS: S1 and S2 normal with no audible murmur, regular rhythm. ABDOMEN: No hepatosplenomegaly, normal bowel sounds, no guarding or rigidity. SPINE: No scoliosis or deformity SKIN: No rashes CENTRAL NERVOUS SYSTEM: Alert and oriented 3, no gross focal deficits. EXTREMITIES: No clubbing edema or cyanosis. - Labs CBC & Chem 7: 05/19/20 08:33 05/19/20 08:33 Labs: Abnormal Lab Results - Last 24 Hours (Table) 12/20/20 12/20/20 12/21/20 Range/Units 16:54 20:28 05:58 D-Dimer 1.48 H (<0.60) mg/L FEU POC Glucose (mg/dL) 321 H 298 H (75-99) mg/dL Lactate Dehydrogenase (120-246) U/L 05/20/20 05/20/20 05/20/20 Range/Units 05:58 07:02 11:27 D-Dimer (<0.60) mg/L FEU POC Glucose (mg/dL) 102 H 167 H (75-99) mg/dL Lactate Dehydrogenase 370 H (120-246) U/L Assessment and Plan Assessment: Impression: Acute hypoxic respiratory failure secondary to covid 19 pneumonia. Out of the window for remdesivir History of syncope secondary to severe aortic regurgitation. History of CVA involving left thigh. History of diabetes type 2. Benign essential hypertension. History of gout. GERD without esophagitis. Recommendation: Continue present supportive care measures. Continue to titrate oxygen, patient could be considered for discharge planning in the next 24 hours, Continue the Covid 19 cocktail. Continue albuterol. Continue Lovenox 40 mg subcu daily. Continue melatonin. Again consider discharge planning may need oxygen at home in the next 24 hours. Time with Patient: Less than 30
[2020-05-20 17:08] LABS: Glucose,Whole Blood 329 mg/dL (75-99)
[2020-05-20 20:09] LABS: Glucose,Whole Blood 393 mg/dL (75-99)
[2020-05-20] MEDS: allopurinoL 100 MG TAB PO SCH (20:37)
[2020-05-21 07:05] LABS: Glucose,Whole Blood 123 mg/dL (75-99)
[2020-05-21 07:11] LABS: Basophils % (A) 0 %; Eosinophils # (A) 0.1 k/uL (0-0.7); Eosinophils % (A) 1 %; HCT 33.2 % (34.0-46.0); HGB 10.8 gm/dL (11.4-16.0); Lymphocytes # (A) 4.2 k/uL (1.0-4.8); Lymphocytes % (A) 32 %; MCHC 32.5 g/dL (31.0-37.0); MCV 89.1 fL (80.0-100.0); Mean Platelet Volume 7.1; Monocytes # (A) 0.5 k/uL (0-1.0); Monocytes % (A) 4 %; Neutrophils # (A) 8.3 k/uL (1.3-7.7); Neutrophils % (A) 63 %; Platelet Count 446 k/uL (150-450); RBC 3.72 m/uL (3.80-5.40); RDW 13.6 % (11.5-15.5); WBC 13.2 k/uL (3.8-10.6)
[2020-05-21] MEDS: INSULIN ASPART (NovoLOG) 100 UNIT/ML VIAL SQ SCH ×4 (07:13→21:48)
[2020-05-21] MEDS: FAMOTIDINE 20 MG TAB PO SCH (07:53)
[2020-05-21] MEDS: ENOXAPARIN 40 MG/0.4 ML SYRINGE SQ SCH (07:53)
[2020-05-21] MEDS: ZINC SULFATE 220 MG CAP PO SCH (07:53)
[2020-05-21] MEDS: NIFEdipine XL 30 MG TAB.ER.24 PO SCH (07:54)
[2020-05-21] MEDS: dexAMETHasone 2 MG TAB PO SCH (07:54)
[2020-05-21] MEDS: LOSARTAN 50 MG TAB PO SCH (07:54)
[2020-05-21] MEDS: INSULIN DETEMIR (LEVEMIR) 100 UNIT/ML SYR SQ SCH (07:54)
[2020-05-21] MEDS: ASCORBIC ACID 500 MG TAB PO SCH (07:54)
[2020-05-21] MEDS: CHOLECALCIFEROL 1,000 UNIT TAB PO SCH (07:54)
[2020-05-21] MEDS: ALBUTEROL HFA INHALER INHALATION SCH ×4 (09:00→21:08)
[2020-05-21 11:12] LABS: Anion Gap 10.3 mmol/L (4.00-12.00); BUN/Creat Ratio 31.67 Ratio (12.00-20.00); Calcium 8.8 mg/dL (8.7-10.3); Carbon Dioxide 29.7 mmol/L (21.6-31.8); Potassium 4.6 mmol/L (3.5-5.5)
[2020-05-21 11:14] LABS: Glucose,Whole Blood 167 mg/dL (75-99)
--- NOTE | 2020-05-21 13:13 | P.PN ---
Subjective Progress Note Date: 05/21/20 Patient is doing well today. No acute events overnight. Objective - Vital Signs Vital signs: Vital Signs Temp 97.4 F L 05/21/20 10:29 Pulse 68 05/21/20 10:29 Resp 18 05/21/20 10:29 BP 186/67 05/21/20 10:29 Pulse Ox 94 L 05/21/20 10:29 Intake & Output 05/20/20 05/21/20 05/21/20 18:59 06:59 18:59 Intake Total 120 Balance 120 Intake: Oral 120 Other: Voiding Method Toilet Toilet Toilet # Voids 3 3 1 - Exam General: The patient is awake and alert, in no distress Eye: there is normal conjunctiva bilaterally. Neck: The neck is supple, there is no JVD. Cardiovascular: Normal S1-S2, no S3-S4, no murmurs. Respiratory: Lungs with scattered rhonchi Gastrointestinal: Abdomen is soft, nontender Musculoskeletal: There is no pedal edema. Neurological:. Speech is normal. Skin: Skin is warm and dry - Labs CBC & Chem 7: 05/21/20 06:32 05/21/20 06:32 Labs: Abnormal Lab Results - Last 24 Hours (Table) 05/20/20 05/20/20 05/21/20 Range/Units 16:57 20:04 06:32 WBC 13.2 H (3.8-10.6) k/uL RBC 3.72 L (3.80-5.40) m/uL Hgb 10.8 L (11.4-16.0) gm/dL Hct 33.2 L (34.0-46.0) % Neutrophils # 8.3 H (1.3-7.7) k/uL BUN/Creatinine Ratio (12.00-20.00) Ratio POC Glucose (mg/dL) 329 H 393 H (75-99) mg/dL 05/21/20 05/21/20 05/21/20 Range/Units 06:32 07:01 11:12 WBC (3.8-10.6) k/uL RBC (3.80-5.40) m/uL Hgb (11.4-16.0) gm/dL Hct (34.0-46.0) % Neutrophils # (1.3-7.7) k/uL BUN/Creatinine Ratio 31.67 H (12.00-20.00) Ratio POC Glucose (mg/dL) 123 H 167 H (75-99) mg/dL Assessment and Plan Assessment: Patient is a 85-year-old with diabetes, hypertension, osteoarthritis, and left eye blindness who presented to the emergency department with complaints of shortness of breath. She was recently hospitalized here from 05/05 through 05/08 secondary to syncopal episode and low back pain. During that hospital stay she was also found have COVID 19 pneumonia with acute hypoxemic respiratory failure. She was considered for Remdesivir and convalescent plasma however her oxygenation requirements returned to room air and this was deferred. During that hospital stay they had recommended halfway facility however patient preferred to go home with family. On arrival to the ER she was found to have an O2 sat of 85% on room air. CXR consistent with COVID. She was continued on Decadron, Zinc, Vit C, VIt D, pepcid, and melatonin. Pulmonary was consulted. COVID19 pneumonitis with acute hypoxic respiratory failure -Tested positive on 05/05 with persistent symptoms on 05/02 - Dexamethasone day #5 - Pulm recs apprciated, outside window for remdesivir - Flu A/B negative, Procalcitonin normal - Zinc, Vit C, Vit D, Pepcid, Melatonin Hypertension, controlled -Continue procardia, cozaar Diabetes mellitus type 2 with steroid-induced hyperglycemia - Hold Oral - SSI - Levemir 10 units daily Hyponatremia, resolved Hypokalemia, resolved Chronic: GERD Gout Severe aortic regurgitation DVT prophylaxis: Lovenox Discussed with: Patient, nursing Anticipated discharge date: On Wednesday as her daughter is unable to take care of her until then Anticipated discharge place: home with home health A total of 25 minutes was spent on the care of this complex patient more than 50% of the time was spent in counseling and care coordination.
--- NOTE | 2020-05-21 14:04 | P.PN ---
Subjective Progress Note Date: 05/21/20 Principal diagnosis: Acute hypoxic respiratory failure secondary to Covid 19 pneumonitis. This is an 85-year-old female patient who follows with Dr. Anna as her primary care provider. 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 She was here earlier this month after a syncopal episode at home. She was found to have severe aortic regurgitation. She had incidental finding of CoVID 19 positive on 05/05/2020. No hypoxemia. She presented to the emergency room yesterday with complaints of increasing shortness of breath and this time was found to be hypoxic at 88% on room air. Chest x-ray reveals cardiomegaly with persistent but improving right basilar acute infiltrate. Worsening left peripheral and basilar acute infiltrates consistent with CoVID 19 pneumonitis. We are consulted for the same. She is seen today on the regular medical floor. She is currently resting fairly comfortably in bed. Awake and alert in no acute distress. 18 O2 saturations in the 90s on 4 L/m per nasal cannula. She is quite weak. White count 7.2. Hemoglobin 10.8. D-dimer 1.53. sodium 138. Potassium 4.0. Creatinine 0.6. Glucose 271. C-reactive protein 10.4. She is placed on dexamethasone, Lovenox, vitamin supplements, Pepcid. Patient is seen today 05/18/2020 in follow-up on the regular medical floor. She is awake and alert in no acute distress. She continues to require 6 L high flow nasal cannula to maintain O2 saturations in the mid 90s. Chest x-ray reveals diffuse interstitial pattern with his present segmental consolidation. White count 12.1. Hemoglobin 10.6. D-dimer 1.54. ProBNP 829. Troponin negative. She was outside the window for Remdesivir. She remains on Lovenox, dexamethasone, vitamin supplements Pepcid, melatonin. The patient is seen today 05/19/2020 in follow-up on the regular medical floor. She is awake and alert in no acute distress. No worsening shortness of breath, cough or congestion. She remains on 5 L high flow nasal cannula to maintain O2 saturation in the 90s. She did test positive for the CoVID 19 on 05/05/2020. White count 18.9. Hemoglobin 10.9. Sodium 141. Potassium 3.9. Creatinine 0.6. She remains on Lovenox, dexamethasone, vitamin supplements Pepcid, melatonin. Reevaluated today on 05/20/20, patient remains on the regular medical floor, she seems to be doing quite well. Her O2 has been titrated down to 2 L nasal cannula, and her O2 saturation is 93%. Chest x-ray continues to show patchy p erihilar and basilar infiltrates bilaterally, patient is noted to have leukocytosis today with WBC count of 18.9 hemoglobin is 10.9, and left was are normal renal profile is normal. Pro-calcitonin level is low at 0.08. LDH is 370. C-reactive protein is 2, BNP level is a bit elevated at 1310. Patient feels generally weak and tired, occasional cough, no wheezing, denies being short of breath Reevaluated today on 05/21/20, patient is now on 2 L nasal cannula with adequate O2 saturation, feeling better but she is generally weak. Patient is being considered for discharge tomorrow. Clinically significant improvement has been noted. Patient denies any shortness of breath no cough no wheezing she is mostly just tired. Objective - Vital Signs Vital signs: Vital Signs Temp 97.4 F L 05/21/20 10:29 Pulse 68 05/21/20 10:29 Resp 18 05/21/20 10:29 BP 186/67 05/21/20 10:29 Pulse Ox 94 L 05/21/20 10:29 Intake & Output 05/20/20 05/21/20 05/21/20 18:59 06:59 18:59 Intake Total 120 Balance 120 Intake: Oral 120 Other: Voiding Method Toilet Toilet Toilet # Voids 3 3 1 - Exam GENERAL EXAM: Alert, pleasant 85-year-old female patient, on 2 L nasal cannula, in no distress. Sitting at a bedside chair eating her lunch. HEAD: Normocephalic. ENT: Evidence of left eye injury, chronic. Right pupil is reactive to light. No neck masses, no JVD, no stridor, moist mucous membranes. CHEST: No chest wall deformity. LUNGS: Symmetrical expansion, crackles at the bases bilaterally. CVS: S1 and S2 normal with no audible murmur, regular rhythm. ABDOMEN: No hepatosplenomegaly, normal bowel sounds, no guarding or rigidity. SPINE: No scoliosis or deformity SKIN: No rashes CENTRAL NERVOUS SYSTEM: Alert and oriented 3, no gross focal deficits. EXTREMITIES: No clubbing edema or cyanosis. - Labs CBC & Chem 7: 05/21/20 06:32 05/21/20 06:32 Labs: Abnormal Lab Results - Last 24 Hours (Table) 05/20/20 05/20/20 05/21/20 Range/Units 16:57 20:04 06:32 WBC 13.2 H (3.8-10.6) k/uL RBC 3.72 L (3.80-5.40) m/uL Hgb 10.8 L (11.4-16.0) gm/dL Hct 33.2 L (34.0-46.0) % Neutrophils # 8.3 H (1.3-7.7) k/uL BUN/Creatinine Ratio (12.00-20.00) Ratio POC Glucose (mg/dL) 329 H 393 H (75-99) mg/dL 05/21/20 05/21/20 05/21/20 Range/Units 06:32 07:01 11:12 WBC (3.8-10.6) k/uL RBC (3.80-5.40) m/uL Hgb (11.4-16.0) gm/dL Hct (34.0-46.0) % Neutrophils # (1.3-7.7) k/uL BUN/Creatinine Ratio 31.67 H (12.00-20.00) Ratio POC Glucose (mg/dL) 123 H 167 H (75-99) mg/dL Assessment and Plan Assessment: Impression: Acute hypoxic respiratory failure secondary to covid 19 pneumonia. Out of the window for remdesivir History of syncope secondary to severe aortic regurgitation. History of CVA involving left thigh. History of diabetes type 2. Benign essential hypertension. History of gout. GERD without esophagitis. Recommendation: Continue present supportive care measures. Continue to titrate oxygen, will clear for discharge tomorrow evening the patient requires home O2. Continue the Covid 19 cocktail. Continue albuterol. Continue Lovenox 40 mg subcu daily. Continue melatonin. Again consider discharge planning may need oxygen at home in the next 24 hours. Time with Patient: Less than 30
[2020-05-21 16:58] LABS: Glucose,Whole Blood 399 mg/dL (75-99)
[2020-05-21 20:22] LABS: Glucose,Whole Blood 303 mg/dL (75-99)
[2020-05-21] MEDS ORDERED: bisacodyL 5 MG TABLET.DR PO STA (21:27)
[2020-05-21] MEDS: allopurinoL 100 MG TAB PO SCH (21:49)
[2020-05-22 07:17] LABS: Glucose,Whole Blood 111 mg/dL (75-99)
[2020-05-22] MEDS: INSULIN ASPART (NovoLOG) 100 UNIT/ML VIAL SQ SCH ×2 (07:34→11:47)
[2020-05-22] MEDS: ZINC SULFATE 220 MG CAP PO SCH (07:51)
[2020-05-22] MEDS: dexAMETHasone 2 MG TAB PO SCH (07:52)
[2020-05-22] MEDS: INSULIN DETEMIR (LEVEMIR) 100 UNIT/ML SYR SQ SCH (07:52)
[2020-05-22] MEDS: FAMOTIDINE 20 MG TAB PO SCH (07:52)
[2020-05-22] MEDS: ASCORBIC ACID 500 MG TAB PO SCH (07:52)
[2020-05-22] MEDS: ENOXAPARIN 40 MG/0.4 ML SYRINGE SQ SCH (07:52)
[2020-05-22] MEDS: CHOLECALCIFEROL 1,000 UNIT TAB PO SCH (07:52)
[2020-05-22] MEDS: LOSARTAN 50 MG TAB PO SCH (07:52)
[2020-05-22] MEDS: NIFEdipine XL 30 MG TAB.ER.24 PO SCH (07:53)
[2020-05-22] MEDS: ALBUTEROL HFA INHALER INHALATION SCH ×2 (09:07→11:57)
[2020-05-22] MEDS ORDERED: polyethylene glycoL 3350 17 GM POWD.PACK PO SCH (10:45)
[2020-05-22 10:59] LABS: Glucose,Whole Blood 293 mg/dL (75-99)
[2020-05-22] MEDS ORDERED: MINERAL OIL 133 ML ENEMA RECTAL STA (11:22)
[2020-05-22 11:30] VITALS: BP 147/73; RESP 17; TEMP 96.9
--- NOTE | 2020-05-22 11:46 | P.DS ---
Providers Date of admission: 05/16/20 16:29 Expected date of discharge: 05/22/20 Attending physician: Amna Diamond DO Consults: 05/16/20 18:23 Consult Physician Routine Consulting Provider: Tracy Tyson Consult Reason/Comments: COVID-19, AHRF Do you want consulting provider notified?: Yes Primary care physician: Irma Anna Hospital Course: Discharge Diagnosis: Acute hypoxic respiratory failure secondary to covid 19 pneumonia. Out of the window for remdesivir History of syncope secondary to severe aortic regurgitation. History of CVA involving left thigh. History of diabetes type 2. Benign essential hypertension. History of gout. GERD without esophagitis. Hospital Course: Patient is a 85-year-old with diabetes, hypertension, osteoarthritis, and left eye blindness who presented to the emergency department with complaints of shortness of breath. She was recently hospitalized here from 05/05 through 05/08 secondary to syncopal episode and low back pain. During that hospital stay she was also found have COVID 19 pneumonia with acute hypoxemic respiratory failure. She was considered for Remdesivir and convalescent plasma however her oxygenation requirements returned to room air and this was deferred. During that hospital stay they had recommended [facility] facility however patient preferred to go home with family. On arrival to the ER she was found to have an O2 sat of 85% on room air. CXR consistent with COVID. She was continued on Decadron, Zinc, Vit C, VIt D, pepcid, and melatonin. Pulmonary was consulted. COVID19 pneumonitis with acute hypoxic respiratory failure -Tested positive on 05/05 with persistent symptoms on 05/02 - Dexamethasone day #6 -> will dc patient to complete a 10 day course. - Pulm recs apprciated, outside window for remdesivir - Flu A/B negative, Procalcitonin normal - Zinc, Vit C, Vit D, Pepcid, Melatonin -Patient needs oxygen for COVID 19. -Patient is only on 2L NC. Hypertension, controlled -Continue procardia, cozaar Diabetes mellitus type 2 with steroid-induced hyperglycemia -resume home meds Hyponatremia, resolved Hypokalemia, resolved Chronic: GERD Gout Severe aortic regurgitation CM spoke with daughter who said she can stay with patient at home. Patient reported that her SOB had improved. Patient deemed stable for discharge home with home care. Patient seen and examined at bedside.[] Vital signs reviewed and stable. General: [non toxic], [no distress], [appears at stated age], appears chornical ly debilitated. Derm: [warm], [dry] Head: [atraumatic], [normocephalic], [symmetric] Eyes: [EOMI], [no lid lag], [anicteric sclera] Mouth: [no lip lesion], [mucus membranes moist] Cardiovascular: [S1S2 reg], [no murmur], [positive posterior tibial pulse bilateral], Lungs: Diminished breath sounds bilaterally Abdominal: [soft], [ nontender to palpation], [no guarding], [no appreciable organomegaly] Ext: [no gross muscle atrophy], [no edema], [no contractures] Neuro: [ CN II-XI grossly intact], [no focal neuro deficits] Psych: [Alert], [oriented], [appropriate affect] A total of [38] minutes of time were spent preparing this complex discharge summary . Patient Condition at Discharge: Fair Plan - Discharge Summary Discharge Rx Participant: No New Discharge Prescriptions: New Melatonin 5 mg PO HS #14 tablet Zinc Sulfate [Orazinc] 220 mg PO DAILY #14 cap Cholecalciferol [Vitamin D3 (25 Mcg = 1000 Iu)] 1,000 unit PO DAILY #14 tab Continue allopurinoL [Zyloprim] 200 mg PO HS glipiZIDE XL [Glucotrol XL] 10 mg PO DAILY Losartan [Cozaar] 50 mg PO DAILY Omeprazole 20 mg PO DAILY Acetaminophen Tab [Tylenol] 650 mg PO Q6HR PRN tab PRN Reason: Mild Pain Or Fever > 100.5 Ascorbic Acid [Vitamin C] 1,000 mg PO DAILY #10 tablet NIFEdipine XL [Procardia XL] 30 mg PO DAILY Dexamethasone [Decadron] 6 mg PO DAILY 3 Days #3 tablet Discharge Medication List allopurinoL [Zyloprim] 200 mg PO HS 10/17/13 [History] glipiZIDE XL [Glucotrol XL] 10 mg PO DAILY 02/27/19 [History] Losartan [Cozaar] 50 mg PO DAILY 05/05/20 [History] Omeprazole 20 mg PO DAILY 05/05/20 [History] Acetaminophen Tab [Tylenol] 650 mg PO Q6HR PRN tab 05/08/20 [Rx] Ascorbic Acid [Vitamin C] 1,000 mg PO DAILY #10 tablet 05/08/20 [Rx] NIFEdipine XL [Procardia XL] 30 mg PO DAILY 05/16/20 [History] Cholecalciferol [Vitamin D3 (25 Mcg = 1000 Iu)] 1,000 unit PO DAILY #14 tab 05/22/20 [Rx] Dexamethasone [Decadron] 6 mg PO DAILY 3 Days #3 tablet 05/22/20 [Rx] Melatonin 5 mg PO HS #14 tablet 05/22/20 [Rx] Zinc Sulfate [Orazinc] 220 mg PO DAILY #14 cap 05/22/20 [Rx] Follow up Appointment(s)/Referral(s): Irma Anna MD [Primary Care Provider] - 1-2 days Patient Instructions/Handouts: Zinc Sulfate (By mouth), Dexamethasone (By mouth), Melatonin (By mouth), Cholecalciferol (By mouth)
[2020-05-22 11:57] VITALS: PULSE 105
--- NOTE | 2020-05-22 14:10 | P.PN ---
Subjective Progress Note Date: 05/22/20 Principal diagnosis: Acute hypoxic respiratory failure secondary to Covid 19 pneumonitis. This is an 85-year-old female patient who follows with Dr. Anna as her primary care provider. 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 She was here earlier this month after a syncopal episode at home. She was found to have severe aortic regurgitation. She had incidental finding of CoVID 19 positive on 05/05/2020. No hypoxemia. She presented to the emergency room yesterday with complaints of increasing shortness of breath and this time was found to be hypoxic at 88% on room air. Chest x-ray reveals cardiomegaly with persistent but improving right basilar acute infiltrate. Worsening left peripheral and basilar acute infiltrates consistent with CoVID 19 pneumonitis. We are consulted for the same. She is seen today on the regular medical floor. She is currently resting fairly comfortably in bed. Awake and alert in no acute distress. 18 O2 saturations in the 90s on 4 L/m per nasal cannula. She is quite weak. White count 7.2. Hemoglobin 10.8. D-dimer 1.53. sodium 138. Potassium 4.0. Creatinine 0.6. Glucose 271. C-reactive protein 10.4. She is placed on dexamethasone, Lovenox, vitamin supplements, Pepcid. Patient is seen today 05/18/2020 in follow-up on the regular medical floor. She is awake and alert in no acute distress. She continues to require 6 L high flow nasal cannula to maintain O2 saturations in the mid 90s. Chest x-ray reveals diffuse interstitial pattern with his present segmental consolidation. White count 12.1. Hemoglobin 10.6. D-dimer 1.54. ProBNP 829. Troponin negative. She was outside the window for Remdesivir. She remains on Lovenox, dexamethasone, vitamin supplements Pepcid, melatonin. The patient is seen today 05/19/2020 in follow-up on the regular medical floor. She is awake and alert in no acute distress. No worsening shortness of breath, cough or congestion. She remains on 5 L high flow nasal cannula to maintain O2 saturation in the 90s. She did test positive for the CoVID 19 on 05/05/2020. White count 18.9. Hemoglobin 10.9. Sodium 141. Potassium 3.9. Creatinine 0.6. She remains on Lovenox, dexamethasone, vitamin supplements Pepcid, melatonin. Reevaluated today on 05/20/20, patient remains on the regular medical floor, she seems to be doing quite well. Her O2 has been titrated down to 2 L nasal cannula, and her O2 saturation is 93%. Chest x-ray continues to show patchy p erihilar and basilar infiltrates bilaterally, patient is noted to have leukocytosis today with WBC count of 18.9 hemoglobin is 10.9, and left was are normal renal profile is normal. Pro-calcitonin level is low at 0.08. LDH is 370. C-reactive protein is 2, BNP level is a bit elevated at 1310. Patient feels generally weak and tired, occasional cough, no wheezing, denies being short of breath Reevaluated today on 05/21/20, patient is now on 2 L nasal cannula with adequate O2 saturation, feeling better but she is generally weak. Patient is being considered for discharge tomorrow. Clinically significant improvement has been noted. Patient denies any shortness of breath no cough no wheezing she is mostly just tired. Reevaluated today on 05/22/20, patient is doing great, relatively asy mptomatic. Patient is being discharged home today. I fully agree with the discharge planning. Objective - Vital Signs Vital signs: Vital Signs Temp 96.9 F L 05/22/20 11:00 Pulse 105 H 05/22/20 11:56 Resp 17 05/22/20 11:00 BP 147/73 05/22/20 11:00 Pulse Ox 87 L 05/22/20 11:56 Intake & Output 05/21/20 05/22/20 05/22/20 18:59 06:59 18:59 Intake Total 1770 Balance 1770 Intake: Oral 1770 Other: Voiding Method Toilet Toilet Bedside Commode # Voids 2 3 - Exam GENERAL EXAM: Alert, pleasant 85-year-old female patient, on 2 L nasal cannula, in no distress. HEAD: Normocephalic. ENT: Evidence of left eye injury, chronic. Right pupil is reactive to light. No neck masses, no JVD, no stridor, moist mucous membranes. CHEST: No chest wall deformity. LUNGS: Symmetrical expansion, crackles at the bases bilaterally. CVS: S1 and S2 normal with no audible murmur, regular rhythm. ABDOMEN: No hepatosplenomegaly, normal bowel sounds, no guarding or rigidity. SPINE: No scoliosis or deformity SKIN: No rashes CENTRAL NERVOUS SYSTEM: Alert and oriented 3, no gross focal deficits. EXTREMITIES: No clubbing edema or cyanosis. - Labs CBC & Chem 7: 05/21/20 06:32 05/21/20 06:32 Labs: Abnormal Lab Results - Last 24 Hours (Table) 05/21/20 05/21/20 05/22/20 Range/Units 16:54 20:21 05:33 D-Dimer 0.93 H (<0.60) mg/L FEU POC Glucose (mg/dL) 399 H 303 H (75-99) mg/dL Lactate Dehydrogenase (120-246) U/L 05/22/20 05/22/20 05/22/20 Range/Units 05:33 07:16 10:57 D-Dimer (<0.60) mg/L FEU POC Glucose (mg/dL) 111 H 293 H (75-99) mg/dL Lactate Dehydrogenase 345 H (120-246) U/L Assessment and Plan Assessment: Impression: Acute hypoxic respiratory failure secondary to covid 19 pneumonia. History of syncope secondary to severe aortic regurgitation. History of CVA involving left thigh. History of diabetes type 2. Benign essential hypertension. History of gout. GERD without esophagitis. Recommendation: Continue present supportive care measures. Agree with discharging the patient home today. Will likely need home O2 at 2 L. Continue the Covid 19 cocktail. Continue albuterol. Continue Lovenox 40 mg subcu daily. Continue melatonin. Time with Patient: Less than 30
== END 2020-05-22 15:20 | disposition home or self-care (01) | DRG 177 ==
LOC: EC 14:50 → 6NMEDSUR 16:29
PROVIDERS: ADMIT Internal Medicine; ATTEND Internal Medicine
DX: U07.1 COVID-19 (principal); J12.89 Other viral pneumonia; J96.01 Acute respiratory failure with hypoxia; E87.2 Acidosis; E87.1 Hypo-osmolality and hyponatremia; E86.0 Dehydration; E87.6 Hypokalemia; E11.65 Type 2 diabetes mellitus with hyperglycemia; I10 Essential (primary) hypertension; H54.62 Unqualified visual loss, left eye, normal vision right eye; K21.9 Gastro-esophageal reflux disease without esophagitis; I35.1 Nonrheumatic aortic (valve) insufficiency; M10.9 Gout, unspecified; M19.90 Unspecified osteoarthritis, unspecified site; T38.0X5A Adverse effect of glucocorticoids and synthetic analogues, initial encounter; M54.5 Low back pain; Z86.73 Personal history of transient ischemic attack (TIA), and cerebral infarction without residual deficits; Z79.899 Other long term (current) drug therapy; Z90.710 Acquired absence of both cervix and uterus; Z79.4 Long term (current) use of insulin; Z88.0 Allergy status to penicillin; Z88.2 Allergy status to sulfonamides; Z88.5 Allergy status to narcotic agent; Z90.49 Acquired absence of other specified parts of digestive tract; Z98.890 Other specified postprocedural states; Z98.49 Cataract extraction status, unspecified eye; Z87.01 Personal history of pneumonia (recurrent)
CPT/HCPCS: 36415; 71045; 71046; 80048; 80053; 82550; 82728; 83605; 83615; 83735; 83880; 84145; 84484; 85025; 85379; 85610; 85730; 86140; 87502; 93005; 94640; 96361; 96374; 99285

== ENCOUNTER 2020-06-11 05:42 | Emergency (ER) | payer MEDICARE ==
[2020-06-11 05:51] VITALS: RESP 18
[2020-06-11] MEDS ORDERED: SODIUM CHLORIDE 0.9% 1,000 ML IV STA (05:58)
[2020-06-11] MEDS ORDERED: HYDROmorphone 0.5 MG/0.5 ML SYRINGE IVP STA (05:59)
--- NOTE | 2020-06-11 05:59 | ED ---
Back Pain HPI - General Source: patient, EMS, RN notes reviewed, old records reviewed Limitations: no limitations - History of Present Illness MD Complaint: back pain, other (No injury) -: hour(s) Similar Symptoms Previously: Yes Place: home Radiation: none Severity: moderate Severity scale (1-10): 4 Consistency: constant Improves With: none Worsens With: none Context: while lifting Associated Symptoms: denies other symptoms Treatments Prior to Arrival: prescription analgesics <Jose Billy - Last Filed: 06/11/20 06:42> <Brandon Ludwig - Last Filed: 06/11/20 08:22> - General Chief Complaint: Back Pain/Injury Stated Complaint: Back pain Time Seen by Provider: 06/11/20 05:49 - History of Present Illness Initial Comments: This is a 85-year-old female she presents today for evaluation regards to back pain maybe some shortness of breath. Patient did have covert diagnosis a few w eeks back he states he did recover and just until recently has had some severe back pain concern for recurrence of pneumonia. Patient also complaining of generalized pain generalized body aches that has not really gone away since she had coronavirus does have history and of the coronavirus pneumonia high blood pressure and diabetes (Jose Billy) - Related Data Home Medications Medication Instructions Recorded Confirmed allopurinoL [Zyloprim] 200 mg PO HS 10/17/13 05/16/20 glipiZIDE XL [Glucotrol XL] 10 mg PO DAILY 02/27/19 05/16/20 Losartan [Cozaar] 50 mg PO DAILY 05/05/20 05/16/20 Omeprazole 20 mg PO DAILY 05/05/20 05/16/20 NIFEdipine XL [Procardia XL] 30 mg PO DAILY 05/16/20 05/16/20 Previous Rx's Medication Instructions Recorded Acetaminophen Tab [Tylenol] 650 mg PO Q6HR PRN tab 05/08/20 Ascorbic Acid [Vitamin C] 1,000 mg PO DAILY #10 tablet 05/08/20 Cholecalciferol [Vitamin D3 (25 1,000 unit PO DAILY #14 tab 05/22/20 Mcg = 1000 Iu)] Dexamethasone [Decadron] 6 mg PO DAILY 3 Days #3 tablet 05/22/20 Melatonin 5 mg PO HS #14 tablet 05/22/20 Zinc Sulfate [Orazinc] 220 mg PO DAILY #14 cap 05/22/20 Allergies Allergy/AdvReac Type Severity Reaction Status Date / Time Penicillins Allergy Rash/Hives Verified 06/11/20 05:54 Sulfa (Sulfonamide Allergy Rash/Hives Verified 06/11/20 05:54 Antibiotics) morphine AdvReac TURNED Verified 06/11/20 05:54 PURPLE/TROUBLE BREATHING Review of Systems ROS Other: All systems not noted in ROS Statement are negative. <Jose Billy - Last Filed: 06/11/20 06:42> ROS Other: All systems not noted in ROS Statement are negative. <Brandon Ludwig - Last Filed: 06/11/20 08:22> ROS Statement: Those systems with pertinent positive or pertinent negative responses have been documented in the HPI. 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, BLIND LEFT EYE, GOUT, Pneumonia, COVID+ History of Any Multi-Drug Resistant Organisms: None Reported Past Surgical History: Bowel Resection, Cholecystectomy, Hysterectomy, Orthopedic Surgery Additional Past Surgical History / Comment(s): PALMER ROTATOR CUFF, CATARACT SX Past Anesthesia/Blood Transfusion Reactions: No Reported Reaction Past Psychological History: No Psychological Hx Reported Smoking Status: Never smoker Past Alcohol Use History: None Reported Past Drug Use History: None Reported <Joes Billy - Last Filed: 06/11/20 06:42> General Exam Limitations: no limitations General appearance: alert, in no apparent distress Head exam: Present: atraumatic, normocephalic, normal inspection Eye exam: Present: normal appearance, PERRL, EOMI. Absent: scleral icterus, conjunctival injection, periorbital swelling ENT exam: Present: normal exam, mucous membranes moist Neck exam: Present: normal inspection. Absent: tenderness, meningismus, lymphadenopathy Respiratory exam: Present: normal lung sounds bilaterally. Absent: respiratory distress, wheezes, rales, rhonchi, stridor Cardiovascular Exam: Present: regular rate, normal rhythm, normal heart sounds. Absent: systolic murmur, diastolic murmur, rubs, gallop, clicks GI/Abdominal exam: Present: soft, normal bowel sounds. Absent: distended, tenderness, guarding, rebound, rigid Extremities exam: Present: normal inspection, full ROM, normal capillary refill. Absent: tenderness, pedal edema, joint swelling, calf tenderness Back exam: Present: normal inspection Neurological exam: Present: alert, oriented X3, CN II-XII intact Psychiatric exam: Present: normal affect, normal mood Skin exam: Present: warm, dry, intact, normal color. Absent: rash <Jose Billy - Last Filed: 06/11/20 06:42> Course <Jose Billy - Last Filed: 06/11/20 06:42> Vital Signs 06/11/20 06/11/20 06/11/20 05:47 06:20 07:13 Temperature 98.0 F Pulse Rate 80 80 77 Respiratory 18 18 18 Rate Blood Pressure 145/58 167/75 O2 Sat by Pulse 95 94 L Oximetry - Reevaluation(s) Reevaluation #1: 06/11/20 06:43 Medical record is reviewed (Jose Billy) Medical Decision Making - Lab Data Result diagrams: 06/11/20 06:11 06/11/20 06:11 - EKG Data -: EKG Interpreted by Me (EKG shows sinus rhythm 83. 14 QRS 108 QTc 440) <Jose Billy - Last Filed: 06/11/20 06:42> - Lab Data Result diagrams: 06/11/20 06:11 06/11/20 06:11 <Brandon Ludwig - Last Filed: 06/11/20 08:22> - Medical Decision Making Patient's care is signed out at shift change awaiting CT angiography for upper back pain which is worse with deep inspiration and history of coronavirus approximately [address] is negative for PE, showed a groundglass opacity consistent with chronic virus pneumonia. Patient is not hypoxic, pain is imp roved at the time of reevaluation. She has a mild leukocytosis which was present previously stable hemoglobin, she does have an elevated blood glucose in the setting of diabetes. Troponin is negative. Urinalysis is negative. Patient does live alone but has had help at home over the past several weeks. Patient is eager for discharge. Pain controlled. (Brandon Ludwig) - Lab Data Lab Results 01/05/2006/11/20 06/11/20 Range/Units 06:11 06:11 06:11 WBC 13.3 H (3.8-10.6) k/uL RBC 3.54 L (3.80-5.40) m/uL Hgb 10.6 L (11.4-16.0) gm/dL Hct 30.8 L (34.0-46.0) % MCV 87.0 (80.0-100.0) fL MCH 30.0 (25.0-35.0) pg MCHC 34.6 (31.0-37.0) g/dL RDW 14.2 (11.5-15.5) % Plt Count 324 (150-450) k/uL MPV 7.0 Neutrophils % 70 % Lymphocytes % 18 % Monocytes % 5 % Eosinophils % 3 % Basophils % 1 % Neutrophils # 9.3 H (1.3-7.7) k/uL Lymphocytes # 2.4 (1.0-4.8) k/uL Monocytes # 0.7 (0-1.0) k/uL Eosinophils # 0.4 (0-0.7) k/uL Basophils # 0.2 (0-0.2) k/uL PT 10.3 (9.0-12.0) sec INR 1.0 (<1.2) APTT 26.2 (22.0-30.0) sec D-Dimer 1.62 H (<0.60) mg/L FEU Sodium 133 L (137-145) mmol/L Potassium 3.6 (3.5-5.1) mmol/L Chloride 103 (98-107) mmol/L Carbon Dioxide 26 (22-30) mmol/L Anion Gap 4 mmol/L BUN 20 H (7-17) mg/dL Creatinine 0.75 (0.52-1.04) mg/dL Est GFR (CKD-EPI)AfAm 83 (>60 ml/min/1.73 sqM) Est GFR (CKD-EPI)NonAf 72 (>60 ml/min/1.73 sqM) Glucose 263 H (74-99) mg/dL Plasma Lactic Acid Loco (0.7-2.0) mmol/L Calcium 8.9 (8.4-10.2) mg/dL Phosphorus 3.8 (2.5-4.5) mg/dL Magnesium 1.9 (1.6-2.3) mg/dL Total Bilirubin 0.7 (0.2-1.3) mg/dL AST 15 (14-36) U/L ALT 10 (4-34) U/L Alkaline Phosphatase 82 (38-126) U/L Creatine Kinase 21 L (30-135) U/L Troponin I (0.000-0.034) ng/mL NT-Pro-B Natriuret Pep pg/mL Total Protein 5.4 L (6.3-8.2) g/dL Albumin 2.9 L (3.5-5.0) g/dL Urine Color Urine Appearance (Clear) Urine pH (5.0-8.0) Ur Specific [place] (1.001-1.035) Urine Protein (Negative) Urine Glucose (UA) (Negative) Urine Ketones (Negative) Urine Blood (Negative) Urine Nitrite (Negative) Urine Bilirubin (Negative) Urine Urobilinogen (<2.0) mg/dL Ur Leukocyte Esterase (Negative) Urine RBC (0-5) /hpf Urine WBC (0-5) /hpf Ur Squamous Epith Cells (0-4) /hpf Hyaline Casts (0-2) /lpf Urine Mucus (None) /hpf 06/11/20 06/11/20 06/11/20 Range/Units 06:11 06:11 06:11 WBC (3.8-10.6) k/uL RBC (3.80-5.40) m/uL Hgb (11.4-16.0) gm/dL Hct (34.0-46.0) % MCV (80.0-100.0) fL MCH (25.0-35.0) pg MCHC (31.0-37.0) g/dL RDW (11.5-15.5) % Plt Count (150-450) k/uL MPV Neutrophils % % Lymphocytes % % Monocytes % % Eosinophils % % Basophils % % Neutrophils # (1.3-7.7) k/uL Lymphocytes # (1.0-4.8) k/uL Monocytes # (0-1.0) k/uL Eosinophils # (0-0.7) k/uL Basophils # (0-0.2) k/uL PT (9.0-12.0) sec INR (<1.2) APTT (22.0-30.0) sec D-Dimer (<0.60) mg/L FEU Sodium (137-145) mmol/L Potassium (3.5-5.1) mmol/L Chloride (98-107) mmol/L Carbon Dioxide (22-30) mmol/L Anion Gap mmol/L BUN (7-17) mg/dL Creatinine (0.52-1.04) mg/dL Est GFR (CKD-EPI)AfAm (>60 ml/min/1.73 sqM) Est GFR (CKD-EPI)NonAf (>60 ml/min/1.73 sqM) Glucose (74-99) mg/dL Plasma Lactic Acid Loco 1.3 (0.7-2.0) mmol/L Calcium (8.4-10.2) mg/dL Phosphorus (2.5-4.5) mg/dL Magnesium (1.6-2.3) mg/dL Total Bilirubin (0.2-1.3) mg/dL AST (14-36) U/L ALT (4-34) U/L Alkaline Phosphatase (38-126) U/L Creatine Kinase (30-135) U/L Troponin I <0.012 (0.000-0.034) ng/mL NT-Pro-B Natriuret Pep 3610 pg/mL Total Protein (6.3-8.2) g/dL Albumin (3.5-5.0) g/dL Urine Color Urine Appearance (Clear) Urine pH (5.0-8.0) Ur Specific [place] (1.001-1.035) Urine Protein (Negative) Urine Glucose (UA) (Negative) Urine Ketones (Negative) Urine Blood (Negative) Urine Nitrite (Negative) Urine Bilirubin (Negative) Urine Urobilinogen (<2.0) mg/dL Ur Leukocyte Esterase (Negative) Urine RBC (0-5) /hpf Urine WBC (0-5) /hpf Ur Squamous Epith Cells (0-4) /hpf Hyaline Casts (0-2) /lpf Urine Mucus (None) /hpf 06/11/20 Range/Units 07:19 WBC (3.8-10.6) k/uL RBC (3.80-5.40) m/uL Hgb (11.4-16.0) gm/dL Hct (34.0-46.0) % MCV (80.0-100.0) fL MCH (25.0-35.0) pg MCHC (31.0-37.0) g/dL RDW (11.5-15.5) % Plt Count (150-450) k/uL MPV Neutrophils % % Lymphocytes % % Monocytes % % Eosinophils % % Basophils % % Neutrophils # (1.3-7.7) k/uL Lymphocytes # (1.0-4.8) k/uL Monocytes # (0-1.0) k/uL Eosinophils # (0-0.7) k/uL Basophils # (0-0.2) k/uL PT (9.0-12.0) sec INR (<1.2) APTT (22.0-30.0) sec D-Dimer (<0.60) mg/L FEU Sodium (137-145) mmol/L Potassium (3.5-5.1) mmol/L Chloride (98-107) mmol/L Carbon Dioxide (22-30) mmol/L Anion Gap mmol/L BUN (7-17) mg/dL Creatinine (0.52-1.04) mg/dL Est GFR (CKD-EPI)AfAm (>60 ml/min/1.73 sqM) Est GFR (CKD-EPI)NonAf (>60 ml/min/1.73 sqM) Glucose (74-99) mg/dL Plasma Lactic Acid Loco (0.7-2.0) mmol/L Calcium (8.4-10.2) mg/dL Phosphorus (2.5-4.5) mg/dL Magnesium (1.6-2.3) mg/dL Total Bilirubin (0.2-1.3) mg/dL AST (14-36) U/L ALT (4-34) U/L Alkaline Phosphatase (38-126) U/L Creatine Kinase (30-135) U/L Troponin I (0.000-0.034) ng/mL NT-Pro-B Natriuret Pep pg/mL Total Protein (6.3-8.2) g/dL Albumin (3.5-5.0) g/dL Urine Color Light Yellow Urine Appearance Clear (Clear) Urine pH 6.0 (5.0-8.0) Ur Specific [place] 1.013 (1.001-1.035) Urine Protein Trace H (Negative) Urine Glucose (UA) 2+ H (Negative) Urine Ketones Negative (Negative) Urine Blood Negative (Negative) Urine Nitrite Negative (Negative) Urine Bilirubin Negative (Negative) Urine Urobilinogen <2.0 (<2.0) mg/dL Ur Leukocyte Esterase Small H (Negative) Urine RBC 1 (0-5) /hpf Urine WBC 3 (0-5) /hpf Ur Squamous Epith Cells 1 (0-4) /hpf Hyaline Casts 1 (0-2) /lpf Urine Mucus Rare H (None) /hpf Disposition <Jose Billy - Last Filed: 06/11/20 06:42> Is patient prescribed a controlled substance at d/c from ED?: No Time of Disposition: 08:21 <Brandon Ludwig - Last Filed: 06/11/20 08:22> Clinical Impression: Pneumonia due to Coronavirus disease 2019, Pleuritic chest pain Disposition: HOME SELF-CARE Condition: Fair Instructions (If sedation given, give patient instructions): Pleurisy (ED), Chest Pain (ED), Viral Pneumonia (ED) Additional Instructions: Please take Tylenol and [id number] Motrin if pain persists. These return to the emergency department with worsening or changing symptoms. Referrals: Irma Anna MD [Primary Care Provider] - 1-2 days
[2020-06-11 06:18] LABS: Basophils # (A) 0.2 k/uL (0-0.2); Basophils % (A) 1 %; Eosinophils # (A) 0.4 k/uL (0-0.7); Eosinophils % (A) 3 %; HCT 30.8 % (34.0-46.0); HGB 10.6 gm/dL (11.4-16.0); Lymphocytes # (A) 2.4 k/uL (1.0-4.8); Lymphocytes % (A) 18 %; MCHC 34.6 g/dL (31.0-37.0); Monocytes # (A) 0.7 k/uL (0-1.0); Monocytes % (A) 5 %; Neutrophils # (A) 9.3 k/uL (1.3-7.7); Neutrophils % (A) 70 %; Platelet Count 324 k/uL (150-450); RBC 3.54 m/uL (3.80-5.40); RDW 14.2 % (11.5-15.5); WBC 13.3 k/uL (3.8-10.6)
[2020-06-11 06:28] LABS: Albumin 2.9 g/dL (3.5-5.0); Calcium 8.9 mg/dL (8.4-10.2); Magnesium 1.9 mg/dL (1.6-2.3); Phosphorus 3.8 mg/dL (2.5-4.5); Potassium 3.6 mmol/L (3.5-5.1); Total Bilirubin 0.7 mg/dL (0.2-1.3); Total Protein 5.4 g/dL (6.3-8.2)
[2020-06-11 06:35] LABS: Partial Thromboplastin Time 26.2 sec (22.0-30.0); Prothrombin Time 10.3 sec (9.0-12.0)
--- NOTE | 2020-06-11 07:22 | CT ---
EXAMINATION TYPE: CT angio chest DATE OF EXAM: 06/11/2020 7:10 AM COMPARISON: Chest x-ray May 20, 2020 HISTORY: Back pain. History of colon cancer with covid positive, shortness of breath CT DLP: 284.7 mGycm Automated exposure control for dose reduction was used. CONTRAST: CTA scan of the thorax is performed with IV Contrast, patient injected with 61 mL of Isovue 370, pulm onary embolism protocol. MIP images are created and reviewed. FINDINGS: LUNGS: Multifocal groundglass opacities seen in the mid to lower lung zone background peripheral reti culation and fibrosis and somewhat low lung volumes. Tiny bilateral pleural fluid collections. No pne umothorax seen bilaterally. MEDIASTINUM: There is satisfactory enhancement of the pulmonary artery and its branches, there is no CT evidence for pulmonary embolism. Enlarged pulmonary arteries, CT findings consistent with underlyi ng pulmonary artery hypertension. Cardiomegaly is present. Tiny pericardial effusion. Coronary artery calcification is present which is noted marked underlying coronary artery disease. Moderate mixed pl aque in the descending aorta. Prominent bilateral hilar lymph nodes along with pericarinal and subcar inal lymph nodes presumed reactive. OTHER: Cholecystectomy clips. Visualized portion of spleen is enlarged. Slight underlying scoliotic curvature with multilevel spurring in the spine. IMPRESSION: 1. No CT evidence for acute pulmonary embolism. 2. Low lung volumes and chronic parenchymal changes with multifocal bilateral mid to lower lung groun dglass opacities suggesting product of acute Covid 19 infection on background chronic change. Underly ing cardiomegaly and pulmonary artery hypertension.
[2020-06-11 07:38] LABS: Appearance,Urine Clear (Clear); Bilirubin,Urine Negative (Negative); Blood,Urine Negative (Negative); Color,Urine Light Yellow; Glucose,Urine (UA) 2+ (Negative); Hyaline Casts,Urine 1 /lpf (0-2); Ketones,Urine Negative (Negative); Leukocyte Esterase,Urine Small (Negative); Mucus,Urine Rare /hpf; Nitrite,Urine Negative (Negative); Protein,Urine Trace (Negative); RBC,Urine 1 /hpf (0-5); Specific Gravity,Urine 1.013 (1.001-1.035); Squamous Epithelial Cell,Urine 1 /hpf (0-4); Urobilinogen,Urine <2.0 mg/dL (<2.0); WBC,Urine 3 /hpf (0-5)
[2020-06-11 08:41] VITALS: BP 159/87; PULSE 74; TEMP 97.8
== END 2020-06-11 09:04 | disposition home or self-care (01) ==
LOC: EC 05:42
DX: U07.1 COVID-19 (principal); J12.82 Pneumonia due to coronavirus disease 2019; M10.9 Gout, unspecified; I10 Essential (primary) hypertension; E11.65 Type 2 diabetes mellitus with hyperglycemia; Z79.84 Long term (current) use of oral hypoglycemic drugs; Z79.899 Other long term (current) drug therapy; Z88.0 Allergy status to penicillin; Z88.2 Allergy status to sulfonamides; Z88.5 Allergy status to narcotic agent; Z90.49 Acquired absence of other specified parts of digestive tract; Z90.710 Acquired absence of both cervix and uterus; Z98.42 Cataract extraction status, left eye; Z98.41 Cataract extraction status, right eye
CPT/HCPCS: 99284; 96374; 96361; 36415; 93005; 85379; 83880; 80053; 82550; 83605; 83735; 84100; 84484; 85025; 85610; 85730; 81001; 71275; J1170; Q9967

== ENCOUNTER 2020-06-16 13:26 | Emergency (ER) | payer MEDICARE ==
[2020-06-16 13:42] VITALS: RESP 16
--- NOTE | 2020-06-16 13:59 | ED ---
Extremity Problem HPI - General Chief complaint: Extremity Problem,Nontraumatic Stated complaint: R hand Swelling Time Seen by Provider: 06/16/20 13:34 Source: EMS Mode of arrival: EMS Limitations: physical limitation - History of Present Illness Initial comments: 85-year-old female past medical history of diabetes, CVA, gout who presents emergency Department with reported generalized weakness. Daughter is at bedside and helps provide majority of the history. Patient resides with the patient's daughter who is her main deliverer outside. States that she went into her room to get her up this morning to go to the bathroom the patient was confused. She did not recognize her. She was extremely weak. She had significant difficulty getting her up and putting her on the commode. She called her primary care doctor before coming into the emergency department. When EMS arrived to the house the patient was becoming more arousable and began recognizing her daughter. She states the episode lasted approximately one hour. Patient does have a previous history of stroke and daughter's concern for another stroke. She also notes that the patient does have swelling to her right hand. No known trauma or falls. The patient has been getting progressively weak and reporting to increasing low back pain. She was seen here on the for this complaint and was sent home after a dose of pain medication. Daughter states she finds it difficult to care for her at home and does think the patient needs rehab. Patient has had a poor appetite. Reports to dark urine. No dysuria. Denies any changes in her bowel habits to include rectal bleeding. Patient does admit to abdominal pain and distention. No unilteral weakness. No nausea or vomiting. No fevers. No other alleviating, precipitating or modifying - Related Data Home Medications Medication Instructions Recorded Confirmed allopurinoL [Zyloprim] 100 mg PO HS 10/17/13 06/16/20 glipiZIDE XL [Glucotrol XL] 10 mg PO DAILY 02/27/19 06/16/20 Losartan [Cozaar] 50 mg PO DAILY 05/05/20 06/16/20 Omeprazole 20 mg PO DAILY 05/05/20 06/16/20 NIFEdipine XL [Procardia XL] 30 mg PO DAILY 05/16/20 06/16/20 Artificial Tears-Hypromellose 1 drop BOTH EYES QID PRN 06/16/20 06/16/20 [Artificial Tear Drops] Magnesium(Unknown Dose) 1 tab PO DAILY 06/16/20 06/16/20 Zinc 50 mg PO DAILY 06/16/20 06/16/20 prednisoLONE ACETATE 1% OPHTH 1 drop LEFT EYE HS 06/16/20 06/16/20 [Pred Forte 1%] Previous Rx's Medication Instructions Recorded Acetaminophen Tab [Tylenol] 650 mg PO Q6HR PRN tab 05/08/20 Ascorbic Acid [Vitamin C] 1,000 mg PO DAILY #10 tablet 05/08/20 Cholecalciferol [Vitamin D3 (25 1,000 unit PO DAILY #14 tab 05/22/20 Mcg = 1000 Iu)] Allergies Allergy/AdvReac Type Severity Reaction Status Date / Time morphine Allergy TURNED Verified 06/16/20 15:42 PURPLE/TROUBLE BREATHING Penicillins Allergy Rash/Hives Verified 06/16/20 15:42 Sulfa (Sulfonamide Allergy Rash/Hives Verified 06/16/20 15:42 Antibiotics) Review of Systems ROS Statement: Those systems with pertinent positive or pertinent negative responses have been documented in the HPI. ROS Other: All systems not noted in ROS Statement are negative. 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, BLIND LEFT EYE, GOUT, Pneumonia, COVID+ History of Any Multi-Drug Resistant Organisms: None Reported Past Surgical History: Bowel Resection, Cholecystectomy, Hysterectomy, Orthopedic Surgery Additional Past Surgical History / Comment(s): PALMER ROTATOR CUFF, CATARACT SX Past Anesthesia/Blood Transfusion Reactions: No Reported Reaction Past Psychological History: No Psychological Hx Reported Smoking Status: Never smoker Past Alcohol Use History: None Reported Past Drug Use History: None Reported General Exam Limitations: physical limitation General appearance: alert, in no apparent distress Head exam: Present: atraumatic, normocephalic, normal inspection Eye exam: Present: other (strabimus left eye with chronic blindess). Absent: scleral icterus, conjunctival injection, periorbital swelling ENT exam: Present: normal exam, mucous membranes moist Neck exam: Present: normal inspection. Absent: tenderness, meningismus, lymphadenopathy Respiratory exam: Present: normal lung sounds bilaterally. Absent: respiratory distress, wheezes, rales, rhonchi, stridor Cardiovascular Exam: Present: regular rate, normal rhythm, normal heart sounds. Absent: systolic murmur, diastolic murmur, rubs, gallop, clicks GI/Abdominal exam: Present: soft, normal bowel sounds. Absent: distended, tenderness, guarding, rebound, rigid Extremities exam: Present: full ROM, tenderness (right hand), normal capillary refill. Absent: pedal edema, joint swelling, calf tenderness Back exam: Present: tenderness (lumbar - l1-l3) Neurological exam: Present: alert, oriented X3, CN II-XII intact Psychiatric exam: Present: normal affect, normal mood Skin exam: Present: warm, dry, intact, normal color. Absent: rash Course Vital Signs 06/16/20 06/16/20 06/16/20 13:31 13:53 14:31 Temperature 97.7 F 97.7 F 97.7 F Pulse Rate 84 81 85 Respiratory 16 16 16 Rate Blood Pressure 141/61 141/61 169/77 O2 Sat by Pulse 96 94 L 93 L Oximetry 06/16/20 15:42 Temperature 97.6 F Pulse Rate 93 Respiratory 16 Rate Blood Pressure 166/80 O2 Sat by Pulse 93 L Oximetry Medical Decision Making - Medical Decision Making Upon arrival patient was placed into room 7. A thorough history and physical exam was performed. Patient is alert and oriented at this time and answers all questions appropriately. She has no lateralizing deficits. Laboratory studies were conducted. Patient went over for multiple imaging modalities. Lab studies are remarkable for white count 17.2. Potassium low at 3. Urinalysis demonstrates rare bacteria. Patient was covered with a dose of antibiotics. Potassium is replaced with 20 meq po and 10 meq iv. hand x-ray demonstrates no acute fracture. Moderate degenerative changes. CT of the patient's brain de monstrates a subacute/chronic trace right subdural hematoma. Patient adamantly denies recent fall or head trauma. Chest x-ray demonstrates persistent mild to moderate bilateral opacities. CT of the abdomen and pelvis demonstrates chronic-appearing L1 deformity with mild to moderate bibasilar interstitial opacities. The results are discussed with the patient and her family. Because of the subdural I did recommend transfer to facility with neurologic capabilities. I discussed case with Dr. Hernandez at [facility] who accepted transfer the patient. She remained in neurologic stable condition and will be transported via EMS - Lab Data Result diagrams: 06/16/20 14:02 01/17/21 15:06 Lab Results 06/16/20 06/16/20 06/16/20 Range/Units 14:02 14:02 14:02 WBC 17.2 H (3.8-10.6) k/uL RBC 3.64 L (3.80-5.40) m/uL Hgb 10.6 L (11.4-16.0) gm/dL Hct 31.7 L (34.0-46.0) % MCV 87.0 (80.0-100.0) fL MCH 29.1 (25.0-35.0) pg MCHC 33.4 (31.0-37.0) g/dL RDW 14.5 (11.5-15.5) % Plt Count 371 (150-450) k/uL MPV 7.7 Neutrophils % 74 % Lymphocytes % 16 % Monocytes % 6 % Eosinophils % 1 % Basophils % 1 % Neutrophils # 12.7 H (1.3-7.7) k/uL Lymphocytes # 2.8 (1.0-4.8) k/uL Monocytes # 1.1 H (0-1.0) k/uL Eosinophils # 0.2 (0-0.7) k/uL Basophils # 0.2 (0-0.2) k/uL Poikilocytosis Slight PT 10.5 (9.0-12.0) sec INR 1.0 (<1.2) APTT 24.8 (22.0-30.0) sec Sodium (137-145) mmol/L Potassium (3.5-5.1) mmol/L Chloride (98-107) mmol/L Carbon Dioxide (22-30) mmol/L Anion Gap mmol/L BUN (7-17) mg/dL Creatinine (0.52-1.04) mg/dL Est GFR (CKD-EPI)AfAm (>60 ml/min/1.73 sqM) Est GFR (CKD-EPI)NonAf (>60 ml/min/1.73 sqM) Glucose (74-99) mg/dL Plasma Lactic Acid Loco (0.7-2.0) mmol/L Calcium (8.4-10.2) mg/dL Total Bilirubin (0.2-1.3) mg/dL AST (14-36) U/L ALT (4-34) U/L Alkaline Phosphatase (38-126) U/L Creatine Kinase (30-135) U/L Troponin I (0.000-0.034) ng/mL NT-Pro-B Natriuret Pep pg/mL Total Protein (6.3-8.2) g/dL Albumin (3.5-5.0) g/dL TSH (0.465-4.680) mIU/L Urine Color Yellow Urine Appearance Clear (Clear) Urine pH 5.5 (5.0-8.0) Ur Specific Bailey 1.012 (1.001-1.035) Urine Protein 1+ H (Negative) Urine Glucose (UA) Trace H (Negative) Urine Ketones Negative (Negative) Urine Blood Negative (Negative) Urine Nitrite Negative (Negative) Urine Bilirubin Negative (Negative) Urine Urobilinogen <2.0 (<2.0) mg/dL Ur Leukocyte Esterase Negative (Negative) Urine RBC <1 (0-5) /hpf Urine WBC 1 (0-5) /hpf Urine Bacteria Rare H (None) /hpf Hyaline Casts 1 (0-2) /lpf Urine Mucus Rare H (None) /hpf 06/16/20 06/16/20 06/16/20 Range/Units 14:02 14:02 15:06 WBC (3.8-10.6) k/uL RBC (3.80-5.40) m/uL Hgb (11.4-16.0) gm/dL Hct (34.0-46.0) % MCV (80.0-100.0) fL MCH (25.0-35.0) pg MCHC (31.0-37.0) g/dL RDW (11.5-15.5) % Plt Count (150-450) k/uL MPV Neutrophils % % Lymphocytes % % Monocytes % % Eosinophils % % Basophils % % Neutrophils # (1.3-7.7) k/uL Lymphocytes # (1.0-4.8) k/uL Monocytes # (0-1.0) k/uL Eosinophils # (0-0.7) k/uL Basophils # (0-0.2) k/uL Poikilocytosis PT (9.0-12.0) sec INR (<1.2) APTT (22.0-30.0) sec Sodium 137 (137-145) mmol/L Potassium 3.0 L (3.5-5.1) mmol/L Chloride 97 L (98-107) mmol/L Carbon Dioxide 32 H (22-30) mmol/L Anion Gap 8 mmol/L BUN 14 (7-17) mg/dL Creatinine 0.76 (0.52-1.04) mg/dL Est GFR (CKD-EPI)AfAm 82 (>60 ml/min/1.73 sqM) Est GFR (CKD-EPI)NonAf 71 (>60 ml/min/1.73 sqM) Glucose 193 H (74-99) mg/dL Plasma Lactic Acid Loco 1.8 (0.7-2.0) mmol/L Calcium 8.8 (8.4-10.2) mg/dL Total Bilirubin 1.0 (0.2-1.3) mg/dL AST 19 (14-36) U/L ALT 7 (4-34) U/L Alkaline Phosphatase 85 (38-126) U/L Creatine Kinase <20 L (30-135) U/L Troponin I (0.000-0.034) ng/mL NT-Pro-B Natriuret Pep 1630 pg/mL Total Protein 5.8 L (6.3-8.2) g/dL Albumin 3.1 L (3.5-5.0) g/dL TSH 3.010 (0.465-4.680) mIU/L Urine Color Urine Appearance (Clear) Urine pH (5.0-8.0) Ur Specific Bailey (1.001-1.035) Urine Protein (Negative) Urine Glucose (UA) (Negative) Urine Ketones (Negative) Urine Blood (Negative) Urine Nitrite (Negative) Urine Bilirubin (Negative) Urine Urobilinogen (<2.0) mg/dL Ur Leukocyte Esterase (Negative) Urine RBC (0-5) /hpf Urine WBC (0-5) /hpf Urine Bacteria (None) /hpf Hyaline Casts (0-2) /lpf Urine Mucus (None) /hpf 06/16/20 Range/Units 15:06 WBC (3.8-10.6) k/uL RBC (3.80-5.40) m/uL Hgb (11.4-16.0) gm/dL Hct (34.0-46.0) % MCV (80.0-100.0) fL MCH (25.0-35.0) pg MCHC (31.0-37.0) g/dL RDW (11.5-15.5) % Plt Count (150-450) k/uL MPV Neutrophils % % Lymphocytes % % Monocytes % % Eosinophils % % Basophils % % Neutrophils # (1.3-7.7) k/uL Lymphocytes # (1.0-4.8) k/uL Monocytes # (0-1.0) k/uL Eosinophils # (0-0.7) k/uL Basophils # (0-0.2) k/uL Poikilocytosis PT (9.0-12.0) sec INR (<1.2) APTT (22.0-30.0) sec Sodium (137-145) mmol/L Potassium (3.5-5.1) mmol/L Chloride (98-107) mmol/L Carbon Dioxide (22-30) mmol/L Anion Gap mmol/L BUN (7-17) mg/dL Creatinine (0.52-1.04) mg/dL Est GFR (CKD-EPI)AfAm (>60 ml/min/1.73 sqM) Est GFR (CKD-EPI)NonAf (>60 ml/min/1.73 sqM) Glucose (74-99) mg/dL Plasma Lactic Acid Loco (0.7-2.0) mmol/L Calcium (8.4-10.2) mg/dL Total Bilirubin (0.2-1.3) mg/dL AST (14-36) U/L ALT (4-34) U/L Alkaline Phosphatase (38-126) U/L Creatine Kinase (30-135) U/L Troponin I <0.012 (0.000-0.034) ng/mL NT-Pro-B Natriuret Pep pg/mL Total Protein (6.3-8.2) g/dL Albumin (3.5-5.0) g/dL TSH (0.465-4.680) mIU/L Urine Color Urine Appearance (Clear) Urine pH (5.0-8.0) Ur Specific Bailey (1.001-1.035) Urine Protein (Negative) Urine Glucose (UA) (Negative) Urine Ketones (Negative) Urine Blood (Negative) Urine Nitrite (Negative) Urine Bilirubin (Negative) Urine Urobilinogen (<2.0) mg/dL Ur Leukocyte Esterase (Negative) Urine RBC (0-5) /hpf Urine WBC (0-5) /hpf Urine Bacteria (None) /hpf Hyaline Casts (0-2) /lpf Urine Mucus (None) /hpf - EKG Data EKG Comments: EKG demonstrates sinus rhythm with first-degree AV block. Rate of 85. PA interval 248. QRS 114. QTC of 480. No acute ST segment elevations or depres sions Disposition Clinical Impression: Hypokalemia, Weakness, History of COVID-19, Lumbar compression fracture, Leukocytosis, Subacute subdural hematoma Disposition: OTHER INSTITUTION NOT DEFINED Condition: Serious Is patient prescribed a controlled substance at d/c from ED?: No Referrals: Irma Anna MD [Primary Care Provider] - 1-2 days Time of Disposition: 17:57 - Out of Hospital Transfer - Req. Specs Out of Hospital Transfer - Requested Specifics: Other Emergency Center ([facility])
[2020-06-16 14:16] LABS: Basophils # (A) 0.2 k/uL (0-0.2); Basophils % (A) 1 %; Eosinophils # (A) 0.2 k/uL (0-0.7); Eosinophils % (A) 1 %; HCT 31.7 % (34.0-46.0); HGB 10.6 gm/dL (11.4-16.0); Lymphocytes # (A) 2.8 k/uL (1.0-4.8); Lymphocytes % (A) 16 %; MCH 29.1 pg (25.0-35.0); MCHC 33.4 g/dL (31.0-37.0); Mean Platelet Volume 7.7; Monocytes # (A) 1.1 k/uL (0-1.0); Monocytes % (A) 6 %; Neutrophils # (A) 12.7 k/uL (1.3-7.7); Neutrophils % (A) 74 %; Platelet Count 371 k/uL (150-450); Poikilocytosis Slight; RBC 3.64 m/uL (3.80-5.40); RDW 14.5 % (11.5-15.5); WBC 17.2 k/uL (3.8-10.6)
[2020-06-16 14:21] LABS: Partial Thromboplastin Time 24.8 sec (22.0-30.0); Prothrombin Time 10.5 sec (9.0-12.0)
--- NOTE | 2020-06-16 14:29 | XR ---
Result: Clinical History: Pain and swelling without known injury. Comparison: None available. Technique: 3 views of the right hand. Findings: There is an acute fracture. There are scattered moderate degenerative changes, most notable of the ca rpometacarpal and intercarpal joints. There is mild subluxation of the first through third carpometac arpal joints. There is questionable tiny osseous erosion at the base of the middle finger proximal ph alanx. There is soft tissue swelling about the hand. No soft tissue gas. Impression: No acute fracture. Moderate degenerative changes with mild subluxation and questionable tiny osseous erosion. Correlate for possible inflammatory arthropathy.
[2020-06-16 15:43] LABS: ALT 7 U/L (4-34); AST 19 U/L (14-36); African American GFR (CKD) 82 (>60 ml/min/1.73 sqM); Albumin 3.1 g/dL (3.5-5.0); Alkaline Phosphatase 85 U/L (38-126); Anion Gap 8 mmol/L; Blood Urea Nitrogen 14 mg/dL (7-17); Calcium 8.8 mg/dL (8.4-10.2); Carbon Dioxide 32 mmol/L (22-30); Chloride 97 mmol/L (98-107); Creatine Kinase <20 U/L (30-135); Glucose 193 mg/dL (74-99); Non-African American GFR(CKD) 71 (>60 ml/min/1.73 sqM); Sodium 137 mmol/L (137-145); Total Protein 5.8 g/dL (6.3-8.2)
[2020-06-16 15:50] VITALS: PULSE 93; TEMP 97.6
[2020-06-16] MEDS ORDERED: POTASSIUM CHLORIDE 10 MEQ in WATER FOR INJECTION 1 100ML.BAG IVPB STA (15:55)
[2020-06-16] MEDS ORDERED: POTASSIUM CHLORIDE ER 20 MEQ TAB.ER PO STA (15:55)
[2020-06-16 16:42] LABS: Appearance,Urine Clear (Clear); Bacteria,Urine Rare /hpf; Bilirubin,Urine Negative (Negative); Blood,Urine Negative (Negative); Color,Urine Yellow; Glucose,Urine (UA) Trace (Negative); Hyaline Casts,Urine 1 /lpf (0-2); Ketones,Urine Negative (Negative); Leukocyte Esterase,Urine Negative (Negative); Mucus,Urine Rare /hpf; Nitrite,Urine Negative (Negative); PH, Urine 5.5 (5.0-8.0); Protein,Urine 1+ (Negative); RBC,Urine <1 /hpf (0-5); Specific Gravity,Urine 1.012 (1.001-1.035); Urobilinogen,Urine <2.0 mg/dL (<2.0); WBC,Urine 1 /hpf (0-5)
[2020-06-16] MEDS ORDERED: cefTRIAXone IN SWFI 1,000 MG/10 ML SYRINGE IVP STA (16:46)
--- NOTE | 2020-06-16 17:13 | CT ---
EXAMINATION TYPE: CT brain wo con DATE OF EXAM: 06/16/2020 COMPARISON: None available. HISTORY: confusion CT DLP: 1052.4 mGycm Automated exposure control for dose reduction was used. FINDINGS: There is isoattenuating fluid density within the subdural space overlying the right frontal convexity , consistent with subacute/chronic hematoma, measuring approximately 5 mm in thickness. No significan t midline shift or hydrocephalus. There is mild white matter disease and parenchymal volume loss. The paranasal sinuses demonstrate minimal thickening of the bilateral maxillary sinuses. The mastoid air cells are adequately aerated. The calvarium is intact. Left orbital implant is seen. IMPRESSION: SUBACUTE/CHRONIC TRACE RIGHT SUBDURAL HEMATOMA. NO SIGNIFICANT MIDLINE SHIFT OR HYDROCEPHALUS. Findings were reported to Dr. Pena by me at the time of dictation.
--- NOTE | 2020-06-16 17:15 | XR ---
EXAMINATION TYPE: XR chest 2V DATE OF EXAM: 06/16/2020 COMPARISON: 05/20/2020. HISTORY: Generalized weakness and cough. TECHNIQUE: Frontal and lateral views of the chest are obtained. FINDINGS: There is persistent mild to moderate perihilar and bibasilar opacities. No pleural effusio n, or pneumothorax seen. The cardiac silhouette size is within normal limits. The osseous structur es are intact. IMPRESSION: Persistent mild to moderate bilateral opacities.
--- NOTE | 2020-06-16 17:30 | CT ---
EXAMINATION TYPE: CT abdomen pelvis w con DATE OF EXAM: 06/16/2020 COMPARISON: 02/27/2019. HISTORY: abd distention, back pain, inability to ambulate CT DLP: 878.8 mGycm Automated exposure control for dose reduction was used. TECHNIQUE: Helical acquisition of images was performed from the lung bases through the pelvis. CONTRAST: Performed without Oral Contrast and with IV Contrast, patient injected with 80 mL of Isovue 300. FINDINGS: LUNG BASES: Small to moderate bibasilar interstitial opacities. LIVER/GB: No significant abnormality is appreciated. Cholecystectomy noted. PANCREAS: No significant abnormality is seen. SPLEEN: No significant abnormality is seen. ADRENALS: No significant abnormality is seen. KIDNEYS: No significant abnormality is seen. FREE AIR: No free air is visualized. RETROPERITONEAL ADENOPATHY: None visualized REPRODUCTIVE ORGANS: No significant abnormality is seen URINARY BLADDER: Partially decompressed, limiting evaluation. PELVIC ADENOPATHY: None visualized. OSSEOUS STRUCTURES: No significant abnormality is seen. Chronic appearing mild to moderate L1 compression deformity. Moderate to severe lumbar spondylosis wi th mild levoconvex scoliosis. BOWEL: No acute abnormality is seen. Moderate hiatal hernia. Appendectomy. OTHER: Moderate to advanced atherosclerotic disease. IMPRESSION: MILD TO MODERATE BIBASILAR INTERSTITIAL OPACITIES. OTHERWISE NO DEFINITE ACUTE ABNORMALITY OF THE ABDOMEN OR PELVIS. Chronic appearing L1 compression deformity. Incidental findings as above.
--- NOTE | 2020-06-16 17:37 | CT ---
EXAMINATION TYPE: CT lumbar spine wo con DATE OF EXAM: 06/16/2020 4:56 PM COMPARISON: Concurrent CT of the abdomen. HISTORY: back pain, inability to ambulate CT DLP: 896.3 mGycm Automated exposure control for dose reduction was used. TECHNIQUE: Unenhanced CT of the lumbar spine was performed. Bone and soft tissue window settings are submitted as well as coronal and sagittal reconstructions. FINDINGS: There is chronic appearing mild to moderate L1 compression fracture. The remaining visualized vertebr al body heights are maintained. There is multilevel moderate to severe lumbar spondylosis with mild l evoconvex scoliosis. No significant spondylolisthesis or paraspinal soft tissue abnormality. IMPRESSION: Chronic appearing L1 compression fracture. Otherwise moderate to severe lumbar spondylosis with scoliosis and without acute abnormality.
[2020-06-16 17:59] VITALS: BP 144/82
== END 2020-06-16 18:08 | disposition other institution (70) ==
LOC: EC 13:26
DX: S06.5X9A Traumatic subdural hemorrhage with loss of consciousness of unspecified duration, initial encounter (principal); M48.56XA Collapsed vertebra, not elsewhere classified, lumbar region, initial encounter for fracture; E87.6 Hypokalemia; D72.829 Elevated white blood cell count, unspecified; Z86.16 Personal history of COVID-19; E11.9 Type 2 diabetes mellitus without complications; I10 Essential (primary) hypertension; Z79.84 Long term (current) use of oral hypoglycemic drugs; Z79.899 Other long term (current) drug therapy; Z88.5 Allergy status to narcotic agent; Z88.0 Allergy status to penicillin; Z88.2 Allergy status to sulfonamides; Z86.73 Personal history of transient ischemic attack (TIA), and cerebral infarction without residual deficits
CPT/HCPCS: 36415; 93005; 83880; 80053; 84443; 82550; 83605; 84484; 85025; 85610; 85730; 81001; 73130; 71046; 72131; 70450; 74177; 99285; Q9967

== ENCOUNTER → 2020-07-15 | Outpatient (CLI) | payer MEDICARE ==
--- NOTE | 2020-07-15 11:19 | CT ---
EXAMINATION TYPE: CT brain wo con DATE OF EXAM: 07/15/2020 COMPARISON: 06/16/2020 INDICATION: Subdural Hematoma DLP: 1081.9 mGycm, Automated exposure control for dose reduction was used. CONTRAST: None CT of the brain is performed utilizing 3 mm thick sections through the posterior fossa and 3 mm thick sections through the remaining calvarium. Study is performed within 24 hours of arrival to the hosp ital. No abnormal hyperdensity is present to suggest an acute intracranial hemorrhage. No mass lesion is evident. Previous hypodensity along the right extra-axial subdural space has resolv ed. No new or residual subdural is evident. No acute infarcts are evident. There is patchy periventricular white matter hypodensity, likely on th e basis of chronic white matter ischemic change. Ventricles and sulci are prominent for the patient age. Paranasal sinuses and mastoid air cells within the [id number] are clear. IMPRESSIONS: 1. Atrophy with periventricular white matter ischemic changes. 2. Previous right subdural hematoma is resolved.
== END | disposition home or self-care (01) ==
LOC: RADCTMAIN 08:38
PROVIDERS: ATTEND Family Medicine
DX: G31.9 Degenerative disease of nervous system, unspecified (principal); I67.82 Cerebral ischemia
CPT/HCPCS: 70450

== ENCOUNTER 2021-02-15 11:25 | Emergency (ER) | payer MEDICARE ==
[2021-02-15 11:39] VITALS: TEMP 98.1
--- NOTE | 2021-02-15 13:00 | ED ---
General Adult HPI - General Chief complaint: Extremity Injury, Lower Stated complaint: circulation problem lt foot Time Seen by Provider: 02/15/21 12:40 Source: patient, family, RN notes reviewed Mode of arrival: ambulatory Limitations: no limitations - History of Present Illness Initial comments: 78-year-old well-appearing white female, alert and oriented 4, presents to the emergency room with complaints of bilateral lower extremity swelling since Wednesday. Her primary care doctor told her to use compression socks and she borrowed some from someone she knows. She states that she thinks that they were too tight and developed pain in her left leg. She states that the pain is behind her leg and knee on the left side. She does have bilateral lower extremity edema and does take a water pill. She denies any chest pain or shortness of breath. -: days(s) (5) Severity scale (1-10): 10 Quality: aching Consistency: intermittent Improves with: immobilization, rest Worsens with: movement Associated Symptoms: other (Bilateral lower extremity edema) Treatments Prior to Arrival: other (Compression socks) - Related Data Home Medications Medication Instructions Recorded Confirmed allopurinoL [Zyloprim] 100 mg PO DAILY 10/17/13 02/15/21 glipiZIDE XL [Glucotrol XL] 10 mg PO DAILY 02/27/19 02/15/21 Losartan [Cozaar] 50 mg PO DAILY 05/05/20 02/15/21 Omeprazole 20 mg PO DAILY 05/05/20 02/15/21 NIFEdipine XL [Procardia XL] 30 mg PO DAILY 05/16/20 02/15/21 Artificial Tears-Hypromellose 1 drop BOTH EYES QID PRN 06/16/20 02/15/21 [Artificial Tear Drops] Ferrous Sulf Ec 324mg 324 mg PO BID 02/15/21 02/15/21 Pravastatin Sodium [Pravachol] 10 mg PO DAILY 02/15/21 02/15/21 Previous Rx's Medication Instructions Recorded Acetaminophen Tab [Tylenol] 650 mg PO Q6HR PRN tab 05/08/20 Allergies Allergy/AdvReac Type Severity Reaction Status Date / Time morphine Allergy TURNED Verified 02/15/21 13:44 PURPLE/TROUBLE BREATHING Penicillins Allergy Rash/Hives Verified 02/15/21 13:44 Sulfa (Sulfonamide Allergy Rash/Hives Verified 02/15/21 13:44 Antibiotics) Review of Systems ROS Statement: Those systems with pertinent positive or pertinent negative responses have been documented in the HPI. ROS Other: All systems not noted in ROS Statement are negative. 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, BLIND LEFT EYE, GOUT, Pneumonia, COVID+ History of Any Multi-Drug Resistant Organisms: None Reported Past Surgical History: Bowel Resection, Cholecystectomy, Hysterectomy, Orthopedic Surgery Additional Past Surgical History / Comment(s): PALMER ROTATOR CUFF, CATARACT SX Past Anesthesia/Blood Transfusion Reactions: No Reported Reaction Past Psychological History: No Psychological Hx Reported Smoking Status: Never smoker Past Alcohol Use History: None Reported Past Drug Use History: None Reported General Exam Limitations: no limitations General appearance: alert, in no apparent distress Head exam: Present: atraumatic, normocephalic, normal inspection Eye exam: Present: normal appearance, PERRL, EOMI. Absent: scleral icterus, conjunctival injection, periorbital swelling Neck exam: Present: normal inspection, full ROM. Absent: tenderness, meningismus, lymphadenopathy Respiratory exam: Present: normal lung sounds bilaterally. Absent: respiratory distress, wheezes, rales, rhonchi, stridor Cardiovascular Exam: Present: regular rate, normal rhythm, normal heart sounds. Absent: systolic murmur, diastolic murmur, rubs, gallop, clicks Extremities exam: Present: full ROM, tenderness (Left calf), normal capillary refill (Bilateral lower), pedal edema, calf tenderness (Left calf) Back exam: Absent: tenderness, CVA tenderness (R), CVA tenderness (L) Neurological exam: Present: alert, oriented X3, CN II-XII intact Psychiatric exam: Present: normal affect, normal mood Skin exam: Present: warm, dry, intact, normal color. Absent: rash, cyanosis, diaphoretic, pallor Course Vital Signs 02/15/21 02/15/21 11:37 14:07 Temperature 98.1 F Pulse Rate 79 84 Respiratory 20 18 Rate Blood Pressure 147/80 132/82 O2 Sat by Pulse 97 99 Oximetry Medical Decision Making - Medical Decision Making Ultrasound of the left lower extremity shows no evidence of DVT. There is a 4.2 cm fluid collection likely a worsening of Sorenson's cyst. This is the site of the patient's pain. There is a compartment mental osteoarthrosis anterior soft tissue swelling of the left knee. Chronic symptoms of leg swelling that doctor has seen her on compression socks. She denies chest pain or shortness of breath. Directed to follow up with her primary care doctor for appropriate fitting of compression socks as previously prescribed. An Frank wrap was applied to her left knee. Disposition Clinical Impression: Sorenson's cyst of knee Disposition: HOME SELF-CARE Condition: Good Instructions (If sedation given, give patient instructions): Knee Pain (ED) Additional Instructions: Wear Frank wrap during the day and elevate legs when at rest. Follow up with your primary care doctor about proper fitting compression socks for bilateral lower extremity swelling. Return to the emergency room with any new or worsening symptoms including chest pain or shortness of breath. Is patient prescribed a controlled substance at d/c from ED?: No Referrals: Irma Anna MD [Primary Care Provider] - 1-2 days Time of Disposition: 13:59
--- NOTE | 2021-02-15 13:04 | XR ---
EXAMINATION TYPE: XR knee complete LT DATE OF EXAM: 02/15/2021 COMPARISON: None HISTORY: 86-year-old female pain after fall, injury TECHNIQUE: 3 views FINDINGS: Osteopenia. Prepatellar soft tissue swelling. Tricompartmental degenerative spurring. Trace knee join t effusion. Extensor mechanism appears intact. Popliteal artery calcifications. No acute fracture, blevins bluxation, dislocation seen. IMPRESSION: Tricompartmental osteoarthrosis. Anterior soft tissue swelling. There is osteopenia and a trace knee joint effusion. No acute osseous abnormality seen. If symptoms persist and concern for internal deran gement, MRI can be performed.
--- NOTE | 2021-02-15 13:48 | US ---
EXAMINATION TYPE: US venous doppler duplex LE LT DATE OF EXAM: 02/15/2021 1:35 PM COMPARISON: NONE CLINICAL HISTORY: pain dvt. SIDE PERFORMED: Left TECHNIQUE: The lower extremity deep venous system is examined utilizing real time linear array sonog adriana with graded compression, doppler sonography and color-flow sonography. VESSELS IMAGED: Common Femoral Vein Deep Femoral Vein Greater Saphenous Vein * Femoral Vein Popliteal Vein Small Saphenous Vein * Proximal Calf Veins (* superficial vessels) Left Leg: Negative for DVT Fluid collection left pop fossa measuring 4.2 x 1.8 x 3.6 cm. IMPRESSION: 1. No evidence for deep vein thrombosis in the left lower extremity. 2. Fluid collection in the popliteal fossa measuring up to 4.2 cm, could represent a Sorenson's cyst. Th is could be further evaluated with dedicated knee ultrasound or Knee MRI could be of additional benef it.
[2021-02-15 14:08] VITALS: BP 132/82; PULSE 84; RESP 18
== END 2021-02-15 14:08 | disposition home or self-care (01) ==
LOC: EC 11:25
DX: M71.22 Synovial cyst of popliteal space [Baker], left knee (principal); E11.9 Type 2 diabetes mellitus without complications; I10 Essential (primary) hypertension; Z79.84 Long term (current) use of oral hypoglycemic drugs; Z79.899 Other long term (current) drug therapy
CPT/HCPCS: 99284

== ENCOUNTER → 2021-03-20 | Outpatient (CLI) | payer MEDICARE ==
--- NOTE | 2021-03-20 13:34 | MM ---
Reason for exam: follow-up at short interval from prior study. Last mammogram was performed 4 months ago. History: Patient is postmenopausal. Family history of breast cancer in maternal aunt at age 40 and breast cancer in 3 other maternal aunts. Physical Findings: Nurse did not find any significant physical abnormalities on exam. MG 3D Diag Mammo W/Cad RT CC and MLO view(s) were taken of the right breast. Prior study comparison: November 07, 2020, mammogram. June 21, 2017, mammogram. There are scattered fibroglandular densities. There is chronic nodularity in the right breast. No significant new findings when compared with previous films. These results were verbally communicated with the patient and result sheet given to the patient on 03/20/21. ASSESSMENT: Benign, BI-RAD 2 RECOMMENDATION: Routine screening mammogram of both breasts in 9 months. Back on schedule for October 2021.
== END ==
LOC: RADMAMWWP 10:59
PROVIDERS: ATTEND Family Medicine
DX: R92.2 Inconclusive mammogram (principal); Z78.0 Asymptomatic menopausal state; Z80.3 Family history of malignant neoplasm of breast
CPT/HCPCS: 77065; G0279; 77061

== ENCOUNTER → 2021-11-12 | Outpatient (CLI) | payer MEDICARE ==
--- NOTE | 2021-11-13 02:09 | MR ---
EXAMINATION TYPE: MR brain wo/w con DATE OF EXAM: 11/12/2021 COMPARISON: None HISTORY: Dysplastic skin lesion, chronic head pain, history of eye/colon cancer, artificial eye, rece nt fall and hit head. CONTRAST: Standard multiplanar, multisequence MRI departmental protocol images were obtained without contrast a nd with 7.5 mL intravenous Gadavist gadolinium contrast. There is some cerebral cortical atrophy. There is no mass effect or midline shift. No sign of intracr anial hemorrhage. There is some diffuse increased signal on T2 and FLAIR images in the brainstem invo lving the kishan and midbrain. There is thinning of the corpus callosum. No evidence of a sellar mass. There is some coalescent increased signal in the periventricular white matter around the frontal horn s and occipital horns of the lateral ventricles. This measures up to 1 cm in thickness. There are sca ttered smaller white matter high signal foci at the seo-white matter junction both cerebral hemisphe res. There is mucosal thickening right maxillary sinus. Contrast images show normal enhancement of the venous sinuses. There is no pathologic enhancement. IMPRESSION: Cerebral atrophy. Moderate white matter changes consistent with microvascular ischemia. There is also involvement of the brainstem. Brainstem findings not significantly different than the orbital MR sca n of 10/08/2018. No evidence of cortical infarct.
== END | disposition home or self-care (01) ==
LOC: RADMRIMAIN 15:34
PROVIDERS: ATTEND Family Medicine
DX: G31.9 Degenerative disease of nervous system, unspecified (principal); I67.82 Cerebral ischemia
CPT/HCPCS: 70553; A9585

== ENCOUNTER 2022-04-20 16:39 | Emergency (ER) | payer MEDICARE ==
[2022-04-20 16:57] VITALS: PULSE 93; RESP 18; TEMP 97.9
--- NOTE | 2022-04-20 17:34 | ED ---
General Adult HPI - General Chief complaint: GI Bleed Stated complaint: GI bleed Time Seen by Provider: 04/20/22 16:50 Source: patient, EMS Mode of arrival: EMS Limitations: no limitations - History of Present Illness Initial comments: Dictation was produced using [employer]de[employer] dictation software. please excuse any grammatical, word or spelling errors. Chief Complaint: 87-year-old female presents to the emergency department for black tarry stool in coffee-ground emesis History of Present Illness: She is 87-year-old female shows multiple comorbidities. Patient's history of alleged GI bleed. This morning patient had several bouts of black tarry stool and coffee ground emesis. Patient is not taking and correlation medications. Patient denies any abdominal pain. Denies any fever, chills or night sweats P patient started feeling lightheaded yesterday. Patient was having a GI bleed in the past. She does have history of colectomy for colon cancer. Denies any epigastric or upper abdominal pain. The ROS documented in this emergency department record has been reviewed and confirmed by me. Those systems with pertinent positive or negative responses have been documented in the HPI. All other systems are other negative and/or noncontributory. PHYSICAL EXAM: General Impression: Alert and oriented x3, not in acute distress HEENT: Normocephalic atraumatic, extra-ocular movements intact, pupils equal and reactive to light bilaterally, mucous membranes moist. Cardiovascular: Heart regular rate and rhythm Chest: Able to complete full sentences, no retractions, no tachypnea Abdomen: abdomen soft, non-tender, non-distended, no organomegaly Musculoskeletal: Pulses present and equal in all extremities, no peripheral edema Motor: no focal deficits noted Neurological: CN II-XII grossly intact, no focal motor or sensory deficits noted Skin: Intact with no visualized rashes Psych: Normal affect and mood Rectal exam: No gross blood ED course: 87-year-old female presents to the emergency department with clinical presentation concerning for upper GI bleed. Vital signs upon arrival are within acceptable limits. Laboratory evaluation obtained on the unremarkable. Hemoglobin stable at 12.4 on a be normal. Coag panel metabolic panel is unremarkable. Abdominal labs negative. Stool occult blood is negative. Patient reevaluated bedside at 7:00 PM found to be stable medical condition. Patient be discharged. Advised follow up with primary doctor. Return precautions discussed. - Related Data Home Medications Medication Instructions Recorded Confirmed allopurinoL [Zyloprim] 100 mg PO DAILY 10/17/13 02/15/21 glipiZIDE XL [Glucotrol XL] 10 mg PO DAILY 02/27/19 02/15/21 Losartan [Cozaar] 50 mg PO DAILY 05/05/20 02/15/21 Omeprazole 20 mg PO DAILY 05/05/20 02/15/21 NIFEdipine XL [Procardia XL] 30 mg PO DAILY 05/16/20 02/15/21 Artificial Tears-Hypromellose 1 drop BOTH EYES QID PRN 06/16/20 02/15/21 [Artificial Tear Drops] Ferrous Sulf Ec 324mg 324 mg PO BID 02/15/21 02/15/21 Pravastatin Sodium [Pravachol] 10 mg PO DAILY 02/15/21 02/15/21 Previous Rx's Medication Instructions Recorded Acetaminophen Tab [Tylenol] 650 mg PO Q6HR PRN tab 05/08/20 Allergies Allergy/AdvReac Type Severity Reaction Status Date / Time morphine Allergy TURNED Verified 04/20/22 16:53 PURPLE/TROUBLE BREATHING Penicillins Allergy Rash/Hives Verified 04/20/22 16:53 Sulfa (Sulfonamide Allergy Rash/Hives Verified 04/20/22 16:53 Antibiotics) Review of Systems ROS Statement: Those systems with pertinent positive or pertinent negative responses have been documented in the HPI. ROS Other: All systems not noted in ROS Statement are negative. 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, BLIND LEFT EYE, GOUT, Pneumonia, COVID+ History of Any Multi-Drug Resistant Organisms: None Reported Past Surgical History: Bowel Resection, Cholecystectomy, Hysterectomy, Orthopedic Surgery Additional Past Surgical History / Comment(s): PALMER ROTATOR CUFF, CATARACT SX Past Anesthesia/Blood Transfusion Reactions: No Reported Reaction Past Psychological History: No Psychological Hx Reported Smoking Status: Never smoker Past Alcohol Use History: None Reported Past Drug Use History: None Reported General Exam Limitations: no limitations Course Vital Signs 04/20/22 16:49 Temperature 97.9 F Pulse Rate 93 Respiratory 18 Rate Blood Pressure 162/90 O2 Sat by Pulse 97 Oximetry Medical Decision Making - Lab Data Result diagrams: 04/20/22 17:31 04/20/22 17:31 Lab Results 04/20/22 04/20/22 04/20/22 Range/Units 17:25 17:31 17:31 WBC 12.5 H (3.8-10.6) k/uL RBC 4.22 (3.80-5.40) m/uL Hgb 12.4 (11.4-16.0) gm/dL Hct 37.2 (34.0-46.0) % MCV 88.2 (80.0-100.0) fL MCH 29.3 (25.0-35.0) pg MCHC 33.2 (31.0-37.0) g/dL RDW 14.1 (11.5-15.5) % Plt Count 328 (150-450) k/uL MPV 7.8 Neutrophils % 81 % Lymphocytes % 12 % Monocytes % 5 % Eosinophils % 1 % Basophils % 0 % Neutrophils # 10.0 H (1.3-7.7) k/uL Lymphocytes # 1.5 (1.0-4.8) k/uL Monocytes # 0.6 (0-1.0) k/uL Eosinophils # 0.1 (0-0.7) k/uL Basophils # 0.1 (0-0.2) k/uL PT (9.0-12.0) sec INR (<1.2) APTT (22.0-30.0) sec Sodium (137-145) mmol/L Potassium (3.5-5.1) mmol/L Chloride (98-107) mmol/L Carbon Dioxide (22-30) mmol/L Anion Gap mmol/L BUN (7-17) mg/dL Creatinine (0.52-1.04) mg/dL Est GFR (CKD-EPI)AfAm (>60 ml/min/1.73 sqM) Est GFR (CKD-EPI)NonAf (>60 ml/min/1.73 sqM) Glucose (74-99) mg/dL Plasma Lactic Acid Loco (0.7-2.0) mmol/L Calcium (8.4-10.2) mg/dL Total Bilirubin (0.2-1.3) mg/dL AST (14-36) U/L ALT (4-34) U/L Alkaline Phosphatase (38-126) U/L Total Protein (6.3-8.2) g/dL Albumin (3.5-5.0) g/dL Stool Occult Blood Negative (Negative) Blood Type B Positive Blood Type Confirm Blood Type Recheck Bld Type Recheck Status Spec Expiration Date 04/20/22 04/20/22 04/20/22 Range/Units 17:31 17:31 17:31 WBC (3.8-10.6) k/uL RBC (3.80-5.40) m/uL Hgb (11.4-16.0) gm/dL Hct (34.0-46.0) % MCV (80.0-100.0) fL MCH (25.0-35.0) pg MCHC (31.0-37.0) g/dL RDW (11.5-15.5) % Plt Count (150-450) k/uL MPV Neutrophils % % Lymphocytes % % Monocytes % % Eosinophils % % Basophils % % Neutrophils # (1.3-7.7) k/uL Lymphocytes # (1.0-4.8) k/uL Monocytes # (0-1.0) k/uL Eosinophils # (0-0.7) k/uL Basophils # (0-0.2) k/uL PT 10.5 (9.0-12.0) sec INR 1.0 (<1.2) APTT 22.1 (22.0-30.0) sec Sodium 141 (137-145) mmol/L Potassium 4.0 (3.5-5.1) mmol/L Chloride 106 (98-107) mmol/L Carbon Dioxide 26 (22-30) mmol/L Anion Gap 9 mmol/L BUN 21 H (7-17) mg/dL Creatinine 0.78 (0.52-1.04) mg/dL Est GFR (CKD-EPI)AfAm 78 (>60 ml/min/1.73 sqM) Est GFR (CKD-EPI)NonAf 68 (>60 ml/min/1.73 sqM) Glucose 152 H (74-99) mg/dL Plasma Lactic Acid Loco 1.5 (0.7-2.0) mmol/L Calcium 8.6 (8.4-10.2) mg/dL Total Bilirubin 1.1 (0.2-1.3) mg/dL AST 21 (14-36) U/L ALT 9 (4-34) U/L Alkaline Phosphatase 92 (38-126) U/L Total Protein 6.0 L (6.3-8.2) g/dL Albumin 4.0 (3.5-5.0) g/dL Stool Occult Blood (Negative) Blood Type Blood Type Confirm Blood Type Recheck Bld Type Recheck Status Spec Expiration Date 04/20/22 04/20/22 Range/Units 17:31 17:49 WBC (3.8-10.6) k/uL RBC (3.80-5.40) m/uL Hgb (11.4-16.0) gm/dL Hct (34.0-46.0) % MCV (80.0-100.0) fL MCH (25.0-35.0) pg MCHC (31.0-37.0) g/dL RDW (11.5-15.5) % Plt Count (150-450) k/uL MPV Neutrophils % % Lymphocytes % % Monocytes % % Eosinophils % % Basophils % % Neutrophils # (1.3-7.7) k/uL Lymphocytes # (1.0-4.8) k/uL Monocytes # (0-1.0) k/uL Eosinophils # (0-0.7) k/uL Basophils # (0-0.2) k/uL PT (9.0-12.0) sec INR (<1.2) APTT (22.0-30.0) sec Sodium (137-145) mmol/L Potassium (3.5-5.1) mmol/L Chloride (98-107) mmol/L Carbon Dioxide (22-30) mmol/L Anion Gap mmol/L BUN (7-17) mg/dL Creatinine (0.52-1.04) mg/dL Est GFR (CKD-EPI)AfAm (>60 ml/min/1.73 sqM) Est GFR (CKD-EPI)NonAf (>60 ml/min/1.73 sqM) Glucose (74-99) mg/dL Plasma Lactic Acid Loco (0.7-2.0) mmol/L Calcium (8.4-10.2) mg/dL Total Bilirubin (0.2-1.3) mg/dL AST (14-36) U/L ALT (4-34) U/L Alkaline Phosphatase (38-126) U/L Total Protein (6.3-8.2) g/dL Albumin (3.5-5.0) g/dL Stool Occult Blood (Negative) Blood Type Blood Type Confirm B Positive Blood Type Recheck No Previous Record Bld Type Recheck Status CABO Indicated Spec Expiration Date 04/23/20222330 Disposition Clinical Impression: Black stool Disposition: HOME SELF-CARE Condition: Good Instructions (If sedation given, give patient instructions): Acute Nausea and Vomiting (ED) Is patient prescribed a controlled substance at d/c from ED?: No Referrals: Stanton Bernal MD [Primary Care Provider] - 1-2 days Time of Disposition: 19:02
[2022-04-20 17:41] LABS: Basophils # (A) 0.1 k/uL (0-0.2); Basophils % (A) 0 %; Eosinophils # (A) 0.1 k/uL (0-0.7); Eosinophils % (A) 1 %; HCT 37.2 % (34.0-46.0); HGB 12.4 gm/dL (11.4-16.0); Lymphocytes # (A) 1.5 k/uL (1.0-4.8); Lymphocytes % (A) 12 %; MCH 29.3 pg (25.0-35.0); MCHC 33.2 g/dL (31.0-37.0); MCV 88.2 fL (80.0-100.0); Mean Platelet Volume 7.8; Monocytes # (A) 0.6 k/uL (0-1.0); Monocytes % (A) 5 %; Neutrophils % (A) 81 %; Platelet Count 328 k/uL (150-450); RBC 4.22 m/uL (3.80-5.40); RDW 14.1 % (11.5-15.5); WBC 12.5 k/uL (3.8-10.6)
[2022-04-20 17:50] LABS: Partial Thromboplastin Time 22.1 sec (22.0-30.0); Prothrombin Time 10.5 sec (9.0-12.0)
[2022-04-20 17:56] LABS: Calcium 8.6 mg/dL (8.4-10.2); Total Bilirubin 1.1 mg/dL (0.2-1.3)
[2022-04-20 19:09] VITALS: BP 146/76
== END 2022-04-20 19:35 | disposition home or self-care (01) ==
LOC: EC 16:39
DX: K92.1 Melena (principal); E11.9 Type 2 diabetes mellitus without complications; I10 Essential (primary) hypertension; H54.7 Unspecified visual loss; Z86.16 Personal history of COVID-19; Z86.73 Personal history of transient ischemic attack (TIA), and cerebral infarction without residual deficits; Z88.5 Allergy status to narcotic agent; Z88.0 Allergy status to penicillin; Z88.2 Allergy status to sulfonamides; Z79.899 Other long term (current) drug therapy; Z79.84 Long term (current) use of oral hypoglycemic drugs
CPT/HCPCS: 36415; 80053; 82272; 83605; 85025; 85610; 85730; 86850; 86900; 86901; 93005; 99285